=== PATIENT | male | born 1950 | race Caucasian/White ===

== ENCOUNTER 2017-01-19 09:09 | Observation (INO) ==
--- NOTE | 2017-01-19 09:35 | Emergency Department Note ---
Disposition Clinical Impression: Guaiac positive stools, Elevated troponin Dyspnea Qualifiers: Dyspnea type: dyspnea on exertion Qualified Code(s): R06.09 - Other forms of dyspnea Anemia Qualifiers: Anemia type: unspecified type Qualified Code(s): D64.9 - Anemia, unspecified CHF (congestive heart failure) Qualifiers: Congestive heart failure type: unspecified congestive heart failure type Congestive heart failure chronicity: unspecified congestive heart failure chronicity Qualified Code(s): I50.9 - Heart failure, unspecified Disposition: Admitted As Inpatient Condition: Good Referrals: Neeraj Donis MD [Primary Care Provider] - SOB HPI - General Chief Complaint: ED Shortness of Breath/Dyspnea Stated Complaint: JORJE Time Seen by Provider: 01/19/17 09:15 Source: patient Limitations: no limitations Nursing Notes Reviewed: Yes Vital Signs Reviewed: Yes - History of Present Illness Patient here for evaluation of difficulty in breathing. Past medical history of diabetes and hypertension. Patient states that he has had increasing symptoms over the last several weeks. Patient states that he is beginning having emotional symptoms and difficulty with exertion. Patient states he can hardly make it down the hallway for becoming acutely short of breath. Patient denies active chest pain. Patient does not have chest pain during these episodes. Patient does have a skin ulcer to the right anterior tibia. Patient has been getting outpatient antibiotics with minimal healing. Does not look acutely infected as there is minimal erythema and no purulent drainage. Patient states that he has been worked up for an iron of 8 and blood loss anemia. Last colonoscopy was in 2002. Patient is scheduled to see Dr. Lowery at the end of the month for colonoscopy. Neighbors with the patient states the patient has become more and more emotional as well as unsteady with walking. Patient's last cardiac workup includes a stress test in 2003. Patient had stents placed in 2002. No other cardiac workup since this time. Patient is on daily iron supplements. Guaiac study sent. Not grossly positive for bright red blood or melena. - Related Data Home Medications Medication Instructions Recorded Confirmed Aspirin 81 mg PO DAILY 01/19/17 01/19/17 Carvedilol 12.5 mg PO BID 01/19/17 01/19/17 Duloxetine HCl [Cymbalta] 60 mg PO DAILY 01/19/17 01/19/17 Ferrous Sulfate [Iron] 325 mg PO BID 01/19/17 01/19/17 Fluticasone Propionate Nasal 1 spray NS DAILY 01/19/17 01/19/17 [Flonase] Furosemide [Lasix] 40 mg PO BID 01/19/17 01/19/17 Gabapentin [Neurontin] 300 mg PO BID 01/19/17 01/19/17 Glimepiride [Amaryl] 4 mg PO DAILY 01/19/17 01/19/17 Insulin ASPART [Novolog Flexpen] 20 unit SQ TID 01/19/17 01/19/17 Insulin Degludec [Tresiba 60 unit SQ DAILY 01/19/17 01/19/17 Flextouch U-200] Losartan Potassium [Cozaar] 100 mg PO DAILY 01/19/17 01/19/17 Metformin HCl [Glucophage] 1,000 mg PO BID 01/19/17 01/19/17 Nortriptyline HCl 50 mg PO HS 01/19/17 01/19/17 Ranitidine HCl [Zantac] 150 mg PO BID 01/19/17 01/19/17 Rosuvastatin Calcium [Crestor] 10 mg PO DAILY 01/19/17 01/19/17 Trazodone HCl 100 mg PO HS 01/19/17 01/19/17 Allergies Allergy/AdvReac Type Severity Reaction Status Date / Time No Known Allergies Allergy Verified 01/19/17 11:22 Review of Systems: CONSTITUTIONAL: No weight loss, fever, chills, weakness or fatigue. HEENT: Eyes: No visual changes. Ears, Nose, Throat: No hearing loss, difficulty talking or unable to swallow. SKIN: No rash or itching. CARDIOVASCULAR: No chest pain, chest pressure or chest discomfort. No palpitations or edema. RESPIRATORY: Dyspnea, no cough or sputum production. GASTROINTESTINAL: No anorexia, nausea, vomiting or diarrhea. No abdominal pain or blood. GENITOURINARY: No burning on urination or hematuria. NEUROLOGICAL: No headache, dizziness, syncope, paralysis, ataxia, numbness or tingling in the extremities. No change in bowel or bladder control. MUSCULOSKELETAL: No muscle pain, back pain, joint pain or stiffness. Past Medical History - Past Medical History Medical history: Reports: diabetes, hypertension - Social History Smoking Status: Never smoker Alcohol use: Reports: none Drug use: Reports: none Physical Exam General appearance: NAD, conversant Eyes: anicteric sclerae, moist conjunctivae; PERRL HENT: Atraumatic; oropharynx clear with moist mucous membranes and no mucosal ulcerations Neck: Normal inspection; Trachea midline; FROM, supple Lungs: CTA, with normal respiratory effort and no intercostal retractions CV: RRR, no MRGs Abdomen: Soft, non-tender; no rebound or gaurding Rectal exam with mild hemorrhoids, good rectal tone, no obvious mass or lesions. Stool guaiac not grossly bloody or melanotic. Sent to lab Extremities: Diabetic ulcer to the right tibia. +2 pitting edema to the knees. Skin: Normal temperature; no rash, ulcers or lesions Psych: Appropriate mood and affect Neuro: alert and oriented to person, place and time - General Limitations: no limitations General appearance: alert, in no apparent distress Course - Reevaluation(s) Reevaluation #1: Patient with exertional dyspnea and a hemoglobin of 8.8 in the setting of occult stool heme positive. Patient with Casie megaly and pulmonary vascular congestion in the setting of elevated BNP as well as elevated troponin. Aspirin and Lasix given. Insulin given. - Consultations Consultation #1: Discussed with Dr. Alberts. Patient accepted for admission. Vital Signs Temperature 97.6 F 01/19/17 09:10 Pulse Rate 118 01/19/17 09:10 Respiratory Rate 18 01/19/17 09:10 Blood Pressure 174/79 01/19/17 09:10 O2 Sat by Pulse Oximetry 99 01/19/17 09:10 Temperature 97.6 F 01/19/17 09:10 Pulse Rate 101 01/19/17 11:24 Respiratory Rate 18 01/19/17 11:24 Blood Pressure 159/85 01/19/17 11:24 O2 Sat by Pulse Oximetry 96 01/19/17 11:24 Oxygen Delivery Oxygen Delivery Room Air Shortness of Breath/Dyspnea - Lab Data Result diagrams: 01/19/17 09:53 01/19/17 09:53 Lab Results 01/19/17 01/19/17 01/19/17 Range/Units 09:33 09:53 09:53 WBC 9.5 (4.3-11.1) K/mcL RBC 4.35 (4.19-5.50) M/mcL Hgb 8.8 L (12.9-16.9) g/dL Hct 31.3 L (37.5-50.1) % MCV 72.0 L (83.0-100.0) fL MCH 20.2 L (28.0-33.3) pg MCHC 28.1 L (31.6-35.5) g/dL RDW 20.8 H (11.5-14.5) % Plt Count 294 (140-400) K/mcL MPV 9.7 (9.4-12.4) fL Immature Gran % 0.3 (0-4) % Seg Neutrophils % 80.0 % Lymphocytes % 9.4 % Monocytes % 7.9 % Eosinophils % 2.0 % Basophils % 0.4 % Neutrophils # 7.6 (1.6-8.9) K/mcL Lymphocytes # 0.9 (0.6-4.6) K/mcL Monocytes # 0.8 (0.0-1.3) K/mcL Eosinophils # 0.2 (0.0-0.6) K/mcL Basophils # 0.0 (0.0-0.2) K/mcL Platelet Estimate Normal (Normal) Immature Plt Fraction 3.7 (1.1-6.1) % Polychromasia 2+ A (Not Present) Hypochromasia Present A (Not Present) Anisocytosis 1+ A (Not Present) Microcytosis Present A (Not Present) Sodium 136 (136-145) mEq/L Potassium 3.8 (3.5-4.5) mEq/L Chloride 97 L (98-109) mEq/L Carbon Dioxide 26 (19-29) mEq/L BUN 13 (8-26) mg/dL Creatinine 1.10 (0.72-1.25) mg/dL Est GFR ( Amer) > 60 (> 60) Est GFR (Non-Af Amer) > 60 (> 60) BUN/Creatinine Ratio 12 (6-26) Glucose 380 H (70-99) mg/dL Calculated Osmolality 298 (280-300) Calcium 9.6 (8.6-10.8) mg/dL Troponin I (0-0.03) ng/mL B-Natriuretic Peptide (0-100) pg/mL Urine Color (Yellow) Urine Clarity (Clear) Urine pH (5.0-8.0) pH Units Ur Specific [place] (1.010-1.025) Urine Protein (Neg-Trace) mg/dL Urine Glucose (UA) (Normal) mg/dL Urine Ketones (Negative) mg/dL Urine Blood (Negative) Urine Nitrite (Negative) Urine Bilirubin (Negative) Urine Urobilinogen (Normal) mg/dL Ur Leukocyte Esterase (Negative) Ur Culture Indicated? (NO) Stool Occult Blood Positive A (Negative) Blood Type Antibody Screen 01/19/17 01/19/17 01/19/17 Range/Units 09:53 09:53 09:53 WBC (4.3-11.1) K/mcL RBC (4.19-5.50) M/mcL Hgb (12.9-16.9) g/dL Hct (37.5-50.1) % MCV (83.0-100.0) fL MCH (28.0-33.3) pg MCHC (31.6-35.5) g/dL RDW (11.5-14.5) % Plt Count (140-400) K/mcL MPV (9.4-12.4) fL Immature Gran % (0-4) % Seg Neutrophils % % Lymphocytes % % Monocytes % % Eosinophils % % Basophils % % Neutrophils # (1.6-8.9) K/mcL Lymphocytes # (0.6-4.6) K/mcL Monocytes # (0.0-1.3) K/mcL Eosinophils # (0.0-0.6) K/mcL Basophils # (0.0-0.2) K/mcL Platelet Estimate (Normal) Immature Plt Fraction (1.1-6.1) % Polychromasia (Not Present) Hypochromasia (Not Present) Anisocytosis (Not Present) Microcytosis (Not Present) Sodium (136-145) mEq/L Potassium (3.5-4.5) mEq/L Chloride (98-109) mEq/L Carbon Dioxide (19-29) mEq/L BUN (8-26) mg/dL Creatinine (0.72-1.25) mg/dL Est GFR ( Amer) (> 60) Est GFR (Non-Af Amer) (> 60) BUN/Creatinine Ratio (6-26) Glucose (70-99) mg/dL Calculated Osmolality (280-300) Calcium (8.6-10.8) mg/dL Troponin I 0.04 H* (0-0.03) ng/mL B-Natriuretic Peptide 456 H (0-100) pg/mL Urine Color (Yellow) Urine Clarity (Clear) Urine pH (5.0-8.0) pH Units Ur Specific [place] (1.010-1.025) Urine Protein (Neg-Trace) mg/dL Urine Glucose (UA) (Normal) mg/dL Urine Ketones (Negative) mg/dL Urine Blood (Negative) Urine Nitrite (Negative) Urine Bilirubin (Negative) Urine Urobilinogen (Normal) mg/dL Ur Leukocyte Esterase (Negative) Ur Culture Indicated? (NO) Stool Occult Blood (Negative) Blood Type A POSITIVE Antibody Screen NEGATIVE 01/19/17 Range/Units 10:47 WBC (4.3-11.1) K/mcL RBC (4.19-5.50) M/mcL Hgb (12.9-16.9) g/dL Hct (37.5-50.1) % MCV (83.0-100.0) fL MCH (28.0-33.3) pg MCHC (31.6-35.5) g/dL RDW (11.5-14.5) % Plt Count (140-400) K/mcL MPV (9.4-12.4) fL Immature Gran % (0-4) % Seg Neutrophils % % Lymphocytes % % Monocytes % % Eosinophils % % Basophils % % Neutrophils # (1.6-8.9) K/mcL Lymphocytes # (0.6-4.6) K/mcL Monocytes # (0.0-1.3) K/mcL Eosinophils # (0.0-0.6) K/mcL Basophils # (0.0-0.2) K/mcL Platelet Estimate (Normal) Immature Plt Fraction (1.1-6.1) % Polychromasia (Not Present) Hypochromasia (Not Present) Anisocytosis (Not Present) Microcytosis (Not Present) Sodium (136-145) mEq/L Potassium (3.5-4.5) mEq/L Chloride (98-109) mEq/L Carbon Dioxide (19-29) mEq/L BUN (8-26) mg/dL Creatinine (0.72-1.25) mg/dL Est GFR ( Amer) (> 60) Est GFR (Non-Af Amer) (> 60) BUN/Creatinine Ratio (6-26) Glucose (70-99) mg/dL Calculated Osmolality (280-300) Calcium (8.6-10.8) mg/dL Troponin I (0-0.03) ng/mL B-Natriuretic Peptide (0-100) pg/mL Urine Color Yellow (Yellow) Urine Clarity Clear (Clear) Urine pH 6.5 (5.0-8.0) pH Units Ur Specific [place] 1.014 (1.010-1.025) Urine Protein Negative (Neg-Trace) mg/dL Urine Glucose (UA) >=1000 H (Normal) mg/dL Urine Ketones Negative (Negative) mg/dL Urine Blood Negative (Negative) Urine Nitrite Negative (Negative) Urine Bilirubin Negative (Negative) Urine Urobilinogen Normal (Normal) mg/dL Ur Leukocyte Esterase Negative (Negative) Ur Culture Indicated? NO (NO) Stool Occult Blood (Negative) Blood Type Antibody Screen
--- NOTE | 2017-01-19 09:48 | Emergency Department Note ---
START Narrative - START START: I examined this patient and my medical decision-making was reviewed with the CORRECTION WORKER/PA/Advanced Practice Nurse/Resident Physician. I agree with the documented findings, disposition and treatment plan as described except to the extent set forth below. will work up for SHOEMAKER, anemia, GI bleed possible transfusion if needed.
[2017-01-19 10:00] LABS: Basophils % 0.4 %; Eosinophils # 0.2 K/mcL (0.0-0.6); Hematocrit 31.3 % (37.5-50.1); Hemoglobin 8.8 g/dL (12.9-16.9); Immature Granulocytes % 0.3 % (0-4); Immature Platelets 3.7 % (1.1-6.1); Lymphocytes # 0.9 K/mcL (0.6-4.6); Lymphocytes % 9.4 %; Mean Corpuscular HGB Conc 28.1 g/dL (31.6-35.5); Mean Corpuscular Hemoglobin 20.2 pg (28.0-33.3); Mean Platelet Volume 9.7 fL (9.4-12.4); Monocytes # 0.8 K/mcL (0.0-1.3); Monocytes % 7.9 %; Neutrophils # 7.6 K/mcL (1.6-8.9); Platelet Count 294 K/mcL (140-400); Red Blood Count 4.35 M/mcL (4.19-5.50); Red Cell Distribution Width 20.8 % (11.5-14.5)
[2017-01-19 10:11] LABS: BUN/Creatinine Ratio 12 (6-26); Blood Urea Nitrogen 13 mg/dL (8-26); Calcium 9.6 mg/dL (8.6-10.8); Carbon Dioxide 26 mEq/L (19-29); Chloride 97 mEq/L (98-109); Glucose 380 mg/dL (70-99); Osmolality,Calculated 298 (280-300); Potassium 3.8 mEq/L (3.5-4.5); Sodium 136 mEq/L (136-145); eGFR For African Americans > 60 (> 60); eGFR For Non-African Americans > 60 (> 60)
[2017-01-19 10:23] LABS: Hypochromasia Present (Not Present)
[2017-01-19 10:24] LABS: Anisocytosis 1+ (Not Present); Microcytosis Present (Not Present); Platelet Estimate Normal (Normal); Polychromasia 2+ (Not Present)
[2017-01-19] MEDS ORDERED: Aspirin 81 MG TAB.CHEW PO ONE (10:37)
[2017-01-19] MEDS ORDERED: Furosemide 40 MG/4 ML VIAL IVP ONE (10:41)
[2017-01-19] MEDS ORDERED: Insulin LISPRO 300 UNITS/3 ML VIAL SQ STA (10:46)
[2017-01-19 10:53] LABS: Bilirubin,Urine Negative (Negative); Blood,Urine Negative (Negative); Clarity,Urine Clear (Clear); Color,Urine Yellow (Yellow); Glucose,Urine (UA) >=1000 mg/dL (Normal); Ketones,Urine Negative (Negative); Leukocyte Esterase,Urine Negative (Negative); Nitrite,Urine Negative (Negative); PH,Urine 6.5 pH Units (5.0-8.0); Protein,Urine Negative (Neg-Trace); Specific Gravity,Urine 1.014 (1.010-1.025); Urobilinogen,Urine Normal (Normal)
[2017-01-19] MEDS ORDERED: Pantoprazole 40 MG VIAL IVP ONE (13:17)
[2017-01-19] MEDS ORDERED: *HR* Dextrose 50 % in Water (Syg) 50 ML SYRINGE IVP PRN (13:28)
[2017-01-19] MEDS ORDERED: D5% in Water 1,000 ML IVC PRN (13:28)
[2017-01-19] MEDS ORDERED: Dextrose Gel 15 GM PO PRN ×2 (13:28)
[2017-01-19] MEDS ORDERED: Naloxone 0.4 MG/ML INJ IVP PRN (13:28)
[2017-01-19] MEDS ORDERED: Ondansetron 4 MG/2 ML VIAL IVP PRN (13:28)
--- NOTE | 2017-01-19 13:32 | Event Note ---
Date of Encounter: 01/19/17 Time of Encounter: 13:18 Patient and examined with back office medical assistant. Patients with history of diabetes mellitus, hypertension, coronary artery disease status post PCI on aspirin, chronic nonhealing right leg ulcer presents to the emergency room today with weakness and shortness of breath which has been going on for the past 3 months. Patient noted 3 months ago that he is anemic hemoglobin on the age range. Microcytic hypochromic which is more than likely due to G.I. bleeding. He notes black stools but he has also been iron therapy started a month ago. Denies any fresh bleeding rectum. Denies any hematemesis. Denies nausea. He mentioned that for the past 5 months he has been on leave 5 times a day for pain control. He stopped this 3 weeks ago. He is on baby aspirin. Not on any other antiplatelet or anticoagulant medications. Suspect G.I. bleeding. Will start platonic drip. We will check H&H every 6 hours in transfuse as needed. Hemoglobin currently is in the 8 range. He will need EGD +/- colonoscopy. Will discuss with gastroenterologists. Patient is short of breath, component of congestive heart failure exacerbated by anemia. Will give Lasix 40 mg IV daily. He has a chronic nonhealing right leg wound does not appear infected. Will hold off antibiotics get wound care to see the patient. Troponin elevation is likely non-STEMI type II due to demand ischemia. Patients full code
--- NOTE | 2017-01-19 13:42 | Internal Med History&Physical ---
Date of Encounter: 01/19/17 Time of Encounter: 11:30 Assessment and Plan (1) CHF (congestive heart failure) Current visit: Yes Status: Acute Patient reporting exertional dyspnea and has been progressively worsening over the past last 2 months. To the point where he cannot walk down the hallway without becoming short of breath. He does not report any chest pain, diaphoresis, numbness and tingling, nausea/vomiting. He was found to have cardiomegaly and pulmonary vascular congestion on chest x-ray. Patient denies any recent cardiac workup, but has known history of coronary artery disease with prior MT in 2002. We will start patient on 40 mg IV Lasix twice a day (his home dose Lasix is 40 mg by mouth twice a day) We will obtain a limited echocardiogram We will continue to trend troponins Qualifiers: Congestive heart failure type: unspecified congestive heart failure type Congestive heart failure chronicity: unspecified congestive heart failure chronicity Qualified Code(s): I50.9 - Heart failure, unspecified (2) Anemia Current visit: Yes Status: Acute Patient states that he was found to have low "iron" of around 8 and FOB+ about 5 months ago. He has been looking into getting a colonoscopy, but has not had the chance yet. At presentation he was found to have a hemoglobin of 8.8 and was FOB+. Microcytic anemia with increased RDW with FOB+ would suggest GI bleeding. He also describes having black colored stools, but has been taking iron supplementation for the past few months. He denies any stomach pain, nausea , vomiting, but does report that he had been taking Aleve for about 5 months, but had stopped about 3 weeks ago. Will trend his Hemoglobin to further evaluate Will consult GI for concern for need of EGD and possible colonoscopy, appreciate their assistance Avoid NSAIDs will transfuse as necessary, but would like to avoid giving him additional fluid patient will be receiving lasix for his CHF and will watch for any hemoconcentration will obtain iron studies Will start patient on protonix drip Qualifiers: Anemia type: unspecified type Qualified Code(s): D64.9 - Anemia, unspecified (3) Wound of lower extremity Current visit: Yes Status: Acute Patient appears to have stage 2 and right pretibial area approximately 3 cm in diameter. Surrounding area is slightly erythematous, but this is likely chronic changes and is not likely infected currently. We will consult wound care for further assistance in proper care Qualifiers: Encounter type: initial encounter Laterality: left Qualified Code(s): S81.802A - Unspecified open wound, left lower leg, initial encounter (4) Diabetes mellitus Current visit: Yes Status: Acute Patient has long-standing diabetes mellitus he is on several oral medications as well as home insulin. Presenting with a blood sugar of 294. Also hold patient's oral hypoglycemic medications Start low-dose insulin sliding scale Qualifiers: Diabetes mellitus type: type 2 Diabetes mellitus complication status: with ophthalmic complications Diabetes mellitus complication detail: with diabetic retinopathy Diabetic retinopathy severity: with unspecified retinopathy severity Diabetes mellitus macular edema: macular edema presence unspecified Diabetes mellitus intermission coordinator insulin use: with intermission coordinator use Laterality: unspecified laterality Qualified Code(s): E11.319 - Type 2 diabetes mellitus with unspecified diabetic retinopathy without macular edema; Z79.4 - intermission coordinator ( current) use of insulin (5) Hypertension Current visit: Yes Status: Acute Patient has known history of hypertension on several blood pressure medications. Blood pressure at presentation was elevated, but it is unclear if patient was able to take all of his medications at home. Continue patient home anti-hypertensive medications Carvedilol Losartan Qualifiers: Hypertension type: essential hypertension Qualified Code(s): I10 - Essential (primary) hypertension (6) Elevated troponin Current visit: Yes Status: Acute Troponin mildly elevated at 0.04 and likely represents demand ischemia in presence of CHF, hypertension, and anemia. Patient does have prior history of coronary artery disease with myocardial infarction in 2002 (stent placed at that time). EKG was negative for acute findings. We will continue to trend troponins (7) Depression Current visit: Yes Status: Acute Continue patient home medications Cymbalta Nortriptyline Qualifiers: Depression Type: unspecified Qualified Code(s): F32.9 - Major depressive disorder, single episode, unspecified (8) DVT prophylaxis Current visit: Yes Status: Acute EPCDs Internal Medicine - H&P: HPI Chief complaint: Exertional shortness of breath Admitted From: Home Plans for Post Hospital Care: Home History of present illness: Mr. Simmons is a 66 year old male with prior medical history of hypertension, diabetes, coronary artery disease (with myocardial infarction in 2002 with stent placed at that time), and anemia who presents to [place] after continued, worsening, progressive shortness of breath. He states his shortness of breath has been progressively worsening over the last several months, but recently has gotten to the point where he cannot walk in the [place] without becoming short of breath. He states this has not occurred before. he sees this is not like his prior myocardial infarction, and denies any chest pain, diaphoresis, nausea or vomiting. he reports having a continued dry, nonproductive cough with no prior medical history of lung pathology. He also reports that he was found to be anemic 5 months ago at the [facility] with a "iron" of 8. At this time he was also found to be fecal occult blood positive and was started on iron supplementation. He states that for the past 3 months he is looking into getting a colonoscopy, but had not had the chance to do so yet. He denies hematochezia, epistaxis, or hematuria, but he does report having stool that is black and brown. Though he has been on iron supplementation for the past several months. He denies any history of peptic ulcer disease, but reports that he had been taking Aleve for 5 months before stopping about 3 weeks ago. Past Med Surg Social Fam HX - Past Medical History Medical history: coronary artery disease, diabetes, hyperlipidemia, hypertension Psychiatric history: depression - Past Surgical History Surgical History: angioplasty/stent (2002), other (colonoscopy 2002) - Social History Smoking Status: Never smoker Alcohol use: none Drug use: none Internal Medicine - H&P: Meds Aspirin 81 mg PO DAILY 01/19/17 [History] Carvedilol 12.5 mg PO BID 01/19/17 [History] Duloxetine HCl [Cymbalta] 60 mg PO DAILY 01/19/17 [History] Ferrous Sulfate [Iron] 325 mg PO BID 01/19/17 [History] Fluticasone Propionate Nasal [Flonase] 1 spray NS DAILY 01/19/17 [History] Furosemide [Lasix] 40 mg PO BID 01/19/17 [History] Gabapentin [Neurontin] 300 mg PO BID 01/19/17 [History] Glimepiride [Amaryl] 4 mg PO DAILY 01/19/17 [History] Insulin ASPART [Novolog Flexpen] 20 unit SQ TID 01/19/17 [History] Insulin Degludec [Tresiba Flextouch U-200] 60 unit SQ DAILY 01/19/17 [History] Losartan Potassium [Cozaar] 100 mg PO DAILY 01/19/17 [History] Metformin HCl [Glucophage] 1,000 mg PO BID 01/19/17 [History] Nortriptyline HCl 50 mg PO HS 01/19/17 [History] Ranitidine HCl [Zantac] 150 mg PO BID 01/19/17 [History] Rosuvastatin Calcium [Crestor] 10 mg PO DAILY 01/19/17 [History] Trazodone HCl 100 mg PO HS 01/19/17 [History] Allergies No Known Allergies Allergy (Verified 01/19/17 11:22) - Constitutional Constitutional: fatigue, weakness, no chills, no fever(s), no falls - EENT Eyes: no change in vision, no loss of vision - Cardiovascular Cardiovascular ROS IM: dyspnea on exertion, edema, no chest pain, no diaphoresis , no dyspnea, no lightheadedness - Respiratory Respiratory: cough (dry), dyspnea on exertion, no dyspnea, no hemoptysis, no wheezing, no pain on inspiration - Gastrointestinal Gastrointestinal: melena, no abdominal pain, no constipation, no diarrhea, no hematochezia, no vomiting - Genitourinary Genitourinary ROS male: no dysuria, no hematuria - Musculoskeletal Musculoskeletal ROS IM: no muscle weakness, no numbness, no tingling - Integumentary Integumentary IM: skin ulcer (LLE), no pruritus - Neurological Neurological ROS: weakness, no confusion, no dizziness, no headache(s), no numbness, no tingling - Psychiatric Psychiatric: depression - Constitutional Vitals: Temp Pulse Resp BP Pulse Ox 97.6 F 102 18 126/68 96 01/19/17 09:10 01/19/17 13:16 01/19/17 13:16 01/19/17 13:16 01/19/17 11:24 Exam: General: Cooperative, pleasant, no acute distress, alert and oriented 3, answers questions appropriately, obese HEENT: Normocephalic, atraumatic, neck supple, trachea midline, Conjunctiva pink , sclera anicteric, PERRL, oral mucosa moist, no orophargeal erythema or exudates Respiratory: No accessory muscle usage, faint bibasilar rates on auscultation Cardiovascular: Regular rate and rhythm, S1 and S2 present, no murmurs/rubs/ gallops/clicks appreciated GI/abdominal: Nondistended, nontender, soft, normal bowel sounds, no peritoneal signs, protuberant Extremities: No calf tenderness, noncyanotic, 1+ bilateral pitting pretibial edema, lower extremity pulses palpable and symmetrical, moderate size stage II ulcer located on left pretibial area, surrounded by pink tissue, several other small scratches identified bilateral lower extremities Neurological: Alert and oriented 3, no facial droop, no focal deficits Skin: Dry, intact, normal color Internal Med - H&P Results - Labs CBC & Chem 7: 01/19/17 09:53 01/19/17 09:53 Labs: Short CBC 01/19/17 Range/Units 09:53 WBC 9.5 (4.3-11.1) K/mcL Hgb 8.8 L (12.9-16.9) g/dL Hct 31.3 L (37.5-50.1) % Plt Count 294 (140-400) K/mcL Neutrophils # 7.6 (1.6-8.9) K/mcL BMP 01/19/17 09:53 Sodium 136 Potassium 3.8 Chloride 97 L Carbon Dioxide 26 BUN 13 Creatinine 1.10 Glucose 380 H Calcium 9.6 Cardiac Enzymes 01/19/17 Range/Units 09:53 Troponin I 0.04 H* (0-0.03) ng/mL Urine 01/19/17 Range/Units 10:47 Urine Color Yellow (Yellow) Urine Clarity Clear (Clear) Urine pH 6.5 (5.0-8.0) pH Units Ur Specific [place] 1.014 (1.010-1.025) Urine Protein Negative (Neg-Trace) mg/dL Urine Glucose (UA) >=1000 H (Normal) mg/dL - Impressions ITS Impressions Chest X-Ray 01/19/17 09:36 IMPRESSION: Cardiomegaly with pulmonary vascular congestion. D/ / Sylwia Miranda MD / Sylwia Miranda MD Interpreting Provider: Sylwia Miranda MD
[2017-01-19 14:13] LABS: % Iron Saturation 3 % (20-55); Iron 19 mcg/dL (65-175); Transferrin 389 mg/dL (174-364)
[2017-01-19] MEDS: Pantoprazole 40 MG in 0.9 % Sodium Chloride Mini Bag 100 ML IVC SCH ×2 (15:44→22:27)
[2017-01-19] MEDS ORDERED: Pantoprazole 80 MG in 0.9 % Sodium Chloride 50 ML IVPB ONE (15:49)
[2017-01-19] MEDS ORDERED: Furosemide 40 MG/4 ML VIAL IVP SCH (17:00)
[2017-01-19] MEDS ORDERED: Perflutren Lipid Microsphere 1.3 ML in 0.9 % Sodium Chloride 8.7 ML IVP ONE (17:53)
[2017-01-19] MEDS: Insulin LISPRO 300 UNITS/3 ML VIAL SQ SCH ×2 (18:18→22:28)
[2017-01-19 20:20] LABS: Hemoglobin 8.6 g/dL (12.9-16.9)
[2017-01-19] MEDS: Gabapentin 300 MG CAPSULE PO SCH (22:29)
[2017-01-19] MEDS: traZODone 50 MG TABLET PO SCH (22:29)
[2017-01-20] MEDS: Insulin LISPRO 300 UNITS/3 ML VIAL SQ SCH ×6 (01:01→22:36)
[2017-01-20 03:50] LABS: Basophils % 0.6 %; Eosinophils % 2.6 %; Mean Corpuscular HGB Conc 28.5 g/dL (31.6-35.5)
[2017-01-20 03:53] LABS: Basophils # 0.1 K/mcL (0.0-0.2); Eosinophils # 0.3 K/mcL (0.0-0.6); Hematocrit 29.1 % (37.5-50.1); Hemoglobin 8.3 g/dL (12.9-16.9); Immature Granulocytes % 0.4 % (0-4); Immature Platelets 6.2 % (1.1-6.1); Lymphocytes # 1.1 K/mcL (0.6-4.6); Lymphocytes % 11.4 %; Mean Corpuscular Hemoglobin 20.3 pg (28.0-33.3); Mean Corpuscular Volume 71.3 fL (83.0-100.0); Mean Platelet Volume 10.7 fL (9.4-12.4); Monocytes # 0.9 K/mcL (0.0-1.3); Monocytes % 9.2 %; Neutrophils # 7.5 K/mcL (1.6-8.9); Platelet Count 268 K/mcL (140-400); Red Blood Count 4.08 M/mcL (4.19-5.50); Red Cell Distribution Width 20.9 % (11.5-14.5); Segmented Neutrophils % 75.8 %
[2017-01-20 03:58] LABS: INR 1.4; Prothrombin Time 15.2 Seconds (9.4-12.1)
[2017-01-20 04:01] LABS: Activated Partial Thrombo Time 31.2 Seconds (26.0-36.0); BUN/Creatinine Ratio 13 (6-26); Blood Urea Nitrogen 16 mg/dL (8-26); Calcium 9.3 mg/dL (8.6-10.8); Carbon Dioxide 29 mEq/L (19-29); Chloride 98 mEq/L (98-109); Glucose 182 mg/dL (70-99); Magnesium 1.4 mg/dL (1.6-2.6); Osmolality,Calculated 290 (280-300); Phosphorous 2.8 mg/dL (2.3-4.7); Potassium 3.3 mEq/L (3.5-4.5); Sodium 137 mEq/L (136-145); eGFR For African Americans > 60 (> 60); eGFR For Non-African Americans 57 (> 60)
[2017-01-20 05:00] LABS: Anisocytosis 2+ (Not Present); Hypochromasia Present (Not Present); Microcytosis Present (Not Present)
[2017-01-20 05:01] LABS: Macrocytosis Present (Not Present); Platelet Estimate Normal (Normal); Polychromasia 2+ (Not Present)
[2017-01-20 05:02] LABS: Large Platelets Present (Not Present)
[2017-01-20] MEDS: Pantoprazole 40 MG in 0.9 % Sodium Chloride Mini Bag 100 ML IVC SCH ×3 (05:36→10:32)
[2017-01-20] MEDS: Aspirin Enteric Coated 81 MG Tablet PO SCH (08:56)
[2017-01-20] MEDS: Gabapentin 300 MG CAPSULE PO SCH ×2 (08:57→22:35)
[2017-01-20] MEDS ORDERED: Aspirin 81 MG TAB.CHEW PO SCH (09:00)
[2017-01-20] MEDS ORDERED: Furosemide 40 MG/4 ML VIAL IVP SCH (09:00)
--- NOTE | 2017-01-20 11:59 | Gastroenterology Consult Note ---
<Afshin Layton Arianna - Last Filed: 01/20/17 11:57> Date of Encounter: 01/20/17 Time of Encounter: 10:30 - Assessment and plan (1) Anemia Current Visit: Yes Status: Acute Assessment and plan: Hgb 8.8 on admission, today 8.3 with MCV 71.3 and iron of 19. Plan for EGD and colonoscopy tomorrow. Clear liquid diet today, no red or purple. NPO at midnight. If unable tolerate NuLytely please use MiraLAX prep. If not clear by 6 AM, give 2 tap water enemas. Qualifiers: Anemia type: iron deficiency Iron deficiency anemia type: chronic blood loss Qualified Code(s): D50.0 - Iron deficiency anemia secondary to blood loss (chronic) (2) Guaiac positive stools Current Visit: Yes Status: Acute (3) CHF (congestive heart failure) Current Visit: Yes Status: Acute Assessment and plan: Management per primary team. Qualifiers: Congestive heart failure type: unspecified congestive heart failure type Congestive heart failure chronicity: unspecified congestive heart failure chronicity Qualified Code(s): I50.9 - Heart failure, unspecified - Time Spent With Patient Total time spent is greater than 50% in coordination of care (as documented) at patient's floor/unit and/or counseling patient: GI History of Present Illness - Data of Consult Patient: new to practice Consult date: 01/20/17 Requesting Physician: Mattie Qureshi MD - Consult Narrative Reason for consult: Concern for GI bleed History of present illness: Mr. Simmons is a 66 year old male with PMHx of CAD, NE, DM, HLD, HTN, and anemia who presented to the ED with worsening shortness of breath over the past several months. His SOB is worsened with exertion. He states he was found to be anemic 5 months ago at the [facility] with a "iron" of 8. At that time he was also found to be fecal occult blood positive and was started on iron supplementation. He states that for the past 3 months he is looking into getting a colonoscopy, but had not had the chance to do so yet. He denies fever , chills, chest pain, abdominal pain, hematochezia. He states his stools have been black, but denies tarry stools. He has been on iron supplementation as well. He states he has been taking Aleve for 5 months before stopping 3 weeks ago. Procedures: None NSAIDs: ASA, Aleve Anticoagulation: None Past Med Surg Social Fam HX - Past Medical History Medical history: coronary artery disease, diabetes, hyperlipidemia, hypertension Psychiatric history: depression - Past Surgical History Surgical History: angioplasty/stent, other - Social History Smoking Status: Never smoker Alcohol use: none Drug use: none - Gastrointestinal Gastrointestinal: Present: as per HPI - Constitutional Constitutional: as per HPI - EENT Eyes: as per HPI Ears: Present: as per HPI Nose, mouth and throat: Present: as per HPI - Cardiovascular Cardiovascular ROS: Present: as per HPI - Respiratory Respiratory IM: Present: as per HPI - Genitourinary Genitourinary: Absent: change in color, Urinary frequency - Neurological ROS Neurological GI: Present: as per HPI - Hematologic/Lymphatic Hematologic/Lymphatic pediatric: Present: as per HPI - Musculoskeletal Musculoskeletal ROS GI: Present: as per HPI - Psychiatric ROS Psychiatric GI: Present: as per HPI - Endocrine Endocrine IM: Present: as per HPI - Constitutional Vitals: Temp Pulse Resp BP Pulse Ox 98.2 F 94 16 116/73 100 01/20/17 11:40 01/20/17 11:40 01/20/17 11:40 01/20/17 11:40 01/20/17 11:40 General appearance: Present: cooperative, A&O X 3, no acute distress, answers questions appropriately - Head Head exam: Present: atraumatic, normocephalic - Eye Eye exam: Present: normal appearance, sclera anicteric - ENT ENT exam: Present: mucous membranes moist - Neck Neck exam general surgery: Present: normal inspection, trachea midline - Respiratory Respiratory exam: Present: CTAB. Absent: decreased breath sounds, rales, rhonchi - Cardiovascular Cardiovascular exam: Present: RRR, +S1, +S2 - GI/Abdominal GI/Abdominal exam: Present: soft, no peritoneal signs. Absent: distended, firm , guarding, tenderness - Rectal Rectal exam: Present: deferred - Extremities Exam Extremities exam: Present: warm - Neurological Exam Neurological exam: Present: no focal deficits - Psychiatric Psychiatric exam: Present: normal affect, normal mood - Skin Skin exam: Present: dry, intact, normal color, warm Results - Labs CBC & Chem 7: 01/20/17 03:04 01/20/17 03:04 Labs: Last Result Calcium 9.3 mg/dL (8.6-10.8) 01/20/17 03:04 Iron 19 mcg/dL (65-175) L 01/19/17 13:52 % Saturation 3 % (20-55) L 01/19/17 13:52 Transferrin 389 mg/dL (174-364) H 01/19/17 13:52 Troponin I 0.05 ng/mL (0-0.03) H* 01/19/17 19:49 Stool Occult Blood Positive (Negative) A 01/19/17 09:33 Entire Visit Hgb 8.3 g/dL (12.9-16.9) L 01/20/17 03:04 Hct 29.1 % (37.5-50.1) L 01/20/17 03:04 PT 15.2 Seconds (9.4-12.1) H 01/20/17 03:04 - ABG ABG results: PT/INR, D-dimer PT 15.2 Seconds (9.4-12.1) H 01/20/17 03:04 Consult Discharge Plan - Plan Referrals: Neeraj Donis MD [Primary Care Provider] - <Diane Chandler - Last Filed: 01/20/17 12:43> Date of Encounter: 01/20/17 Time of Encounter: 12:20 - Time Spent With Patient Total time spent is greater than 50% in coordination of care (as documented) at patient's floor/unit and/or counseling patient: GI History of Present Illness - Data of Consult Requesting Physician: Mattie Qureshi MD - Consult Narrative History of present illness: Mr. Simmons is a 66 year old male - Constitutional Vitals: Temp Pulse Resp BP Pulse Ox 98.2 F 94 16 116/73 100 01/20/17 11:40 01/20/17 11:40 01/20/17 11:40 01/20/17 11:40 01/20/17 11:40 Results - Labs CBC & Chem 7: 01/20/17 03:04 01/20/17 03:04 Labs: Last Result Calcium 9.3 mg/dL (8.6-10.8) 01/20/17 03:04 Iron 19 mcg/dL (65-175) L 01/19/17 13:52 % Saturation 3 % (20-55) L 01/19/17 13:52 Transferrin 389 mg/dL (174-364) H 01/19/17 13:52 Troponin I 0.05 ng/mL (0-0.03) H* 01/19/17 19:49 Stool Occult Blood Positive (Negative) A 01/19/17 09:33 Entire Visit Hgb 8.3 g/dL (12.9-16.9) L 01/20/17 03:04 Hct 29.1 % (37.5-50.1) L 01/20/17 03:04 PT 15.2 Seconds (9.4-12.1) H 01/20/17 03:04 - ABG ABG results: PT/INR, D-dimer PT 15.2 Seconds (9.4-12.1) H 01/20/17 03:04 - Attending Attestation I examined this patient and my medical decision-making was reviewed with the UNIT AID/PA/Advanced Practice Nurse/Resident Physician. I agree with the documented findings, disposition and treatment plan as described except to the extent set forth below.
[2017-01-20] MEDS: Insulin DETEMIR 100 UNIT/ML X5UNITS SQ SCH (13:34)
[2017-01-20] MEDS: Fluticasone Propionate Nasal 50 MCG/SPRAY BOTTLE NS SCH (13:35)
--- NOTE | 2017-01-20 15:16 | Internal Med Progress Note ---
Date of Encounter: 01/20/17 Time of Encounter: 15:14 - Assessment and plan (1) CHF (congestive heart failure) Current Visit: Yes Status: Acute Assessment and plan: On IV Lasix. Good response to treatment. 2-D echocardiogram shows ejection fraction of 30-35%. We will consult cardiology for further recommendations. Continue Lasix. High-risk for complications. Also on aspirin, carvedilol Qualifiers: Congestive heart failure type: systolic Congestive heart failure chronicity : unspecified congestive heart failure chronicity Qualified Code(s): I50.20 - Unspecified systolic (congestive) heart failure (2) Anemia Current Visit: Yes Status: Acute Assessment and plan: Hemoglobin 9.3 today. Patient has low iron levels. Has been Will continue. GI has been consulted for further evaluation as patient has had guaiac-positive stools. Qualifiers: Anemia type: iron deficiency Iron deficiency anemia type: chronic blood loss Qualified Code(s): D50.0 - Iron deficiency anemia secondary to blood loss (chronic) (3) Depression Current Visit: Yes Status: Chronic Assessment and plan: Continue nortriptyline Qualifiers: Depression Type: unspecified Qualified Code(s): F32.9 - Major depressive disorder, single episode, unspecified (4) Elevated troponin Current Visit: Yes Status: Acute Assessment and plan: Troponin stable. No chest pain. Likely from demand ischemia. Consult cardiology given low ejection fraction. (5) Guaiac positive stools Current Visit: Yes Status: Acute Assessment and plan: Gastroenterology has been consulted and plan for upper GI endoscopy and colonoscopy tomorrow (6) Wound of lower extremity Current Visit: Yes Status: Chronic Assessment and plan: Chronic right lower extremity pretibial wound. Wound care has been consulted. Qualifiers: Encounter type: initial encounter Laterality: left Qualified Code(s): S81.802A - Unspecified open wound, left lower leg, initial encounter (7) Diabetes mellitus Current Visit: Yes Status: Chronic Assessment and plan: blood sugars are elevated. We will add long-acting insulin. Qualifiers: Diabetes mellitus type: type 2 Diabetes mellitus complication status: with ophthalmic complications Diabetes mellitus complication detail: with diabetic retinopathy Diabetic retinopathy severity: with unspecified retinopathy severity Diabetes mellitus macular edema: macular edema presence unspecified Diabetes mellitus technician terminal and repeater insulin use: with skilled nursing use Laterality: unspecified laterality Qualified Code(s): E11.319 - Type 2 diabetes mellitus with unspecified diabetic retinopathy without macular edema; Z79.4 - group home ( current) use of insulin (8) Hypertension Current Visit: Yes Status: Chronic Assessment and plan: Well-controlled Qualifiers: Hypertension type: essential hypertension Qualified Code(s): I10 - Essential (primary) hypertension - Subjective Interval history: Patient is feeling better today. Shortness of breath is improving. Denies any fever chills or night sweats overnight. No chest pain reported. No nausea or vomiting. No palpitations. - Constitutional Vitals: Temp Pulse Resp BP Pulse Ox 98.2 F 94 16 116/73 100 01/20/17 11:40 01/20/17 11:40 01/20/17 11:40 01/20/17 11:40 01/20/17 11:40 General appearance: Present: cooperative, mild distress, A&O X 3, answers questions appropriately - Cardiovascular Cardiovascular exam: Present: RRR, +S1, +S2. Absent: diastolic murmur, gallop, rubs, systolic murmur - GI/Abdominal GI/Abdominal exam: Present: normal bowel sounds, soft, no peritoneal signs. Absent: distended, tenderness - Extremities Exam Extremities exam: Present: warm, radial pulses palpable and symetrical. Absent : calf tenderness, cyanotic, pedal edema - Neurological Exam Neurological exam: Present: alert, oriented X3, no focal deficits. Absent: facial droop, speech deficit - Skin Skin exam: Present: dry, intact Internal Medicine: Result - Labs CBC & Chem 7: 01/20/17 03:04 01/20/17 03:04 Labs: Short CBC 01/19/17 01/20/17 Range/Units 19:49 03:04 WBC 9.9 (4.3-11.1) K/mcL Hgb 8.6 L 8.3 L (12.9-16.9) g/dL Hct 30.0 L 29.1 L (37.5-50.1) % Plt Count 268 (140-400) K/mcL Neutrophils # 7.5 (1.6-8.9) K/mcL BMP 01/20/17 03:04 Sodium 137 Potassium 3.3 L Chloride 98 Carbon Dioxide 29 BUN 16 Creatinine 1.25 Glucose 182 H Calcium 9.3 Cardiac Enzymes 01/19/17 Range/Units 19:49 Troponin I 0.05 H* (0-0.03) ng/mL - ABG Interpretation ABG results: PT/INR, D-dimer PT 15.2 Seconds (9.4-12.1) H 01/20/17 03:04 Consult Discharge Plan - Plan Referrals: Neeraj Donis MD [Primary Care Provider] - 01/28/17 10:00 am (please follow up as schedule..) - Attending Attestation This document has been at least partially created by [employer] recognition technology by Dr. Qureshi. Errors in grammar, wording or other phrases may exist. If errors are found after the documentation is signed, they will be addressed individually in the addendum section of this document when appropriate.
[2017-01-20] MEDS: Furosemide 40 MG/4 ML VIAL IVP SCH (16:46)
[2017-01-20] MEDS: Pantoprazole 40 MG VIAL IVP SCH (16:46)
[2017-01-20] MEDS ORDERED: SODIUM CHLORIDE/NAHCO3/KCL/PEG 4,000 ML SOLN.RECON PO ONE (17:00)
[2017-01-20] MEDS: Silvasorb 44.4 ML TUBE TP SCH (19:34)
[2017-01-20] MEDS ORDERED: Insulin DETEMIR 100 UNIT/ML X5UNITS SQ SCH (21:00)
[2017-01-20] MEDS: traZODone 50 MG TABLET PO SCH (22:35)
[2017-01-21 04:38] LABS: Basophils # 0.1 K/mcL (0.0-0.2); Basophils % 0.7 %; Eosinophils # 0.3 K/mcL (0.0-0.6); Eosinophils % 3.1 %; Hematocrit 30.7 % (37.5-50.1); Immature Granulocytes % 0.2 % (0-4); Lymphocytes # 1.5 K/mcL (0.6-4.6); Lymphocytes % 17.8 %; Mean Corpuscular HGB Conc 29.3 g/dL (31.6-35.5); Mean Corpuscular Hemoglobin 20.7 pg (28.0-33.3); Mean Corpuscular Volume 70.7 fL (83.0-100.0); Mean Platelet Volume 10.6 fL (9.4-12.4); Monocytes % 12.1 %; Neutrophils # 5.5 K/mcL (1.6-8.9); Platelet Count 257 K/mcL (140-400); Red Blood Count 4.34 M/mcL (4.19-5.50); Red Cell Distribution Width 20.8 % (11.5-14.5); Segmented Neutrophils % 66.1 %
[2017-01-21 05:02] LABS: BUN/Creatinine Ratio 20 (6-26); Blood Urea Nitrogen 21 mg/dL (8-26); Calcium 8.8 mg/dL (8.6-10.8); Carbon Dioxide 25 mEq/L (19-29); Chloride 99 mEq/L (98-109); Glucose 134 mg/dL (70-99); Osmolality,Calculated 287 (280-300); Potassium 3.7 mEq/L (3.5-4.5); Sodium 136 mEq/L (136-145); eGFR For African Americans > 60 (> 60); eGFR For Non-African Americans > 60 (> 60)
[2017-01-21] MEDS: Pantoprazole 40 MG VIAL IVP SCH ×2 (05:45→16:46)
[2017-01-21] MEDS: Furosemide 40 MG/4 ML VIAL IVP SCH (08:14)
[2017-01-21] MEDS: Aspirin Enteric Coated 81 MG Tablet PO SCH (08:14)
[2017-01-21] MEDS: Gabapentin 300 MG CAPSULE PO SCH ×2 (08:14→21:35)
[2017-01-21] MEDS: Insulin LISPRO 300 UNITS/3 ML VIAL SQ SCH ×4 (08:16→21:36)
[2017-01-21] MEDS: Fluticasone Propionate Nasal 50 MCG/SPRAY BOTTLE NS SCH (09:53)
[2017-01-21] MEDS: Insulin DETEMIR 100 UNIT/ML X5UNITS SQ SCH (09:55)
--- NOTE | 2017-01-21 10:39 | Cardiology Consult Note ---
Date of Encounter: 01/21/17 Time of Encounter: 10:39 Assessment and Plan (1) Cardiomyopathy Current Visit: Yes Status: Acute EF 30-35%, globally reduced. Pt unsure of prior EF. Hx of CAD s/p ME and PCI in 2002 at [facility]. No cardiac testing since that time. Records requested. NICMP vs ICMP. Pt denies chest pain. Complicated by GI bleeding--HGB 8s, positive stool guaiac. Colonoscopy planned for today. Will follow-up on colonoscopy results and see if records are able to be obtained. Stress test vs. C in AM for further ischemic eval. Continue BB, ARB, IV Lasix. Continue to follow. Qualifiers: Cardiomyopathy type: unspecified Qualified Code(s): I42.9 - Cardiomyopathy , unspecified (2) CHF (congestive heart failure) Current Visit: Yes Status: Acute Echo EF 30-35%, global systolic dysfunction. Was a limited study. Will discuss with Dr. Huitron regarding reordering as a full echo. Hx of CAD with PCI in 2002. Unclear of previous EF. Records from [facility] requested. No cardiac testing since 2002. Reports worsening dyspnea, occasional LE edema over past 3 months. BNP 456. CXR with pulmonary vascular congestion. Pt being diuresed with Lasix IV 40mg BID. No output recorded, but pt reports symptoms have now resolved. Appears near euvolemic on exam. Recommend transition to PO maintenance Lasix prior to discharge. Recommend strict I/O, daily weights, Na and fluid restriction. Qualifiers: Congestive heart failure type: systolic Congestive heart failure chronicity : unspecified congestive heart failure chronicity Qualified Code(s): I50.20 - Unspecified systolic (congestive) heart failure (3) CAD (coronary artery disease) Current Visit: Yes Status: Chronic Hx of CAD s/p ME and PCI at [facility] in 2002. ASA, Statin, BB. Qualifiers: Coronary Disease-Associated Artery/Lesion type: [place] artery [place] vs. transplanted heart: [place] heart Associated angina: without angina Qualified Code(s): I25.10 - Atherosclerotic heart disease of [place] coronary artery without angina pectoris (4) Elevated troponin Current Visit: Yes Status: Acute Borderline and flat--0.04, 0.04, 0.05 in setting of GI bleed and CHF. Likely demand ischemia, nondiagnostic for ACS. Stress test vs. [facility] in am as above for EF of 30-35%, unclear if acute or chronic. ASA, Statin, BB. (5) Guaiac positive stools Current Visit: Yes Status: Acute Plan for colonoscopy today. GI following. Discussion w patient/family: The assessment and plan as outlined above was discussed with the patient and/or family members who expressed understanding and agreement. All questions were answered. Thank you for involving us in the care of your patient. Please call with any questions. I will discuss all the above with Dr. Huitron and make changes as necessary. History of Present Illness Consult date: 01/21/17 Requesting physician: Mattie Qureshi Consult reason: CMP, CHF Chief complaint: dyspnea History of present illness: Mr. Simmons is a 66 year old male with PMH of hypertension, diabetes, coronary artery disease (with myocardial infarction in 2002 with stent placed at that time), and anemia who presents to [facility] to have further anemia workup. He reports he was found to be anemic 5 months ago at [facility] when he was found to have HGB 8. He was planned to have outpt colonoscopy, but was not completed yet. Does report dark stools on iron supplements. Stool occult blood positive. He states after presentation and questioning he did realize his shortness of breath has been progressively worsening over the last several months, but recently has gotten to the point where he cannot walk in the [place] without becoming short of breath. He denies chest pain. Reports occasional LE edema. Echo shows EF 30-35%, global systolic dysfunction. It was a limited study. He is planned to have colonoscopy today. Cardiology consulted for further recommendations. He is unsure of previous EF. He reports since receiving IV Lasix he feels much better and his dyspnea and LE edema have subsided. Troponins 0.04, 0.04, 0.05. Past Med Surg Social Fam HX - Past Medical History Medical history: coronary artery disease, diabetes, hyperlipidemia, hypertension Psychiatric history: depression - Past Surgical History Surgical History: angioplasty/stent, other - Social History Smoking Status: Never smoker Alcohol use: none Drug use: none Medications and Allergies Aspirin 81 mg PO DAILY 01/19/17 [History] Carvedilol 12.5 mg PO BID 01/19/17 [History] Duloxetine HCl [Cymbalta] 60 mg PO DAILY 01/19/17 [History] Ferrous Sulfate [Iron] 325 mg PO BID 01/19/17 [History] Fluticasone Propionate Nasal [Flonase] 1 spray NS DAILY 01/19/17 [History] Furosemide [Lasix] 40 mg PO BID 01/19/17 [History] Gabapentin [Neurontin] 300 mg PO BID 01/19/17 [History] Glimepiride [Amaryl] 4 mg PO DAILY 01/19/17 [History] Insulin ASPART [Novolog Flexpen] 20 unit SQ TID 01/19/17 [History] Insulin Degludec [Tresiba Flextouch U-200] 60 unit SQ DAILY 01/19/17 [History] Losartan Potassium [Cozaar] 100 mg PO DAILY 01/19/17 [History] Metformin HCl [Glucophage] 1,000 mg PO BID 01/19/17 [History] Nortriptyline HCl 50 mg PO HS 01/19/17 [History] Ranitidine HCl [Zantac] 150 mg PO BID 01/19/17 [History] Rosuvastatin Calcium [Crestor] 10 mg PO DAILY 01/19/17 [History] Trazodone HCl 100 mg PO HS 01/19/17 [History] Allergies No Known Allergies Allergy (Verified 01/19/17 11:22) All Systems Review: A 10-system review of systems was performed and is negative for pertinent findings except as documented above in the HPI. - Cardiovascular Cardiovascular: as per HPI, dyspnea at rest, dyspnea on exertion, leg edema - Respiratory Respiratory: dyspnea - Gastrointestinal Gastrointestinal: melena Physical Examination Vital Signs, Last 4 Hours Temp Pulse Resp BP Pulse Ox 01/21/17 07:43 97.6 F 96 15 124/77 96 Vital Signs Temp Pulse Resp BP Pulse Ox 01/21/17 07:43 97.6 F 96 15 124/77 96 01/21/17 05:11 97.6 F 88 16 115/72 96 01/20/17 23:22 98 F 85 16 90/54 95 01/20/17 20:19 98.2 F 87 16 106/64 98 01/20/17 15:51 98.4 F 96 16 98/59 97 01/20/17 11:40 98.2 F 94 16 116/73 100 Intake and Output 01/20/17 01/21/17 01/21/17 23:59 07:59 15:59 Intake Total 360 / 360 Balance 360 / 360 Intake: Oral 360 / 360 Other: Weight 108.7 kg Blood Glucose* 217 143 Patient Weight 01/21/17 23:59 Weight 108.7 kg General: Conversant, No Apparent Distress HEENT: Atraumatic, Normocephaly, Mucus Membranes Moist Neck: No JVD, Normal carotid pulses Cardiac: Reg Rate and Rhythm, Normal S1 and S2, No Murmur Lungs: Normal Breath Sounds, No Wheeze, Rales, Rhonchi Neuro: Alert and responsive, No focal deficits noted Abdomen: Soft, Non-Tender Skin: No rashes noted on visualized skin Musculoskeletal: No Chest Wall Tenderness Extremities: No Clubbing, No Cyanosis, No Edema, Normal Pulses Results 01/21/17 03:38 01/21/17 03:38 Lab Results 01/21/17 01/21/17 03:38 03:38 WBC 8.3 Hgb 9.0 L Hct 30.7 L Plt Count 257 Sodium 136 Potassium 3.7 Chloride 99 Carbon Dioxide 25 BUN 21 Creatinine 1.05 Glucose 134 H Calcium 8.8 Short CBC 01/21/17 Range/Units 03:38 WBC 8.3 (4.3-11.1) K/mcL Hgb 9.0 L (12.9-16.9) g/dL Hct 30.7 L (37.5-50.1) % Plt Count 257 (140-400) K/mcL Neutrophils # 5.5 (1.6-8.9) K/mcL BMP 01/21/17 Range/Units 03:38 Sodium 136 (136-145) mEq/L Potassium 3.7 (3.5-4.5) mEq/L Chloride 99 (98-109) mEq/L Carbon Dioxide 25 (19-29) mEq/L BUN 21 (8-26) mg/dL Creatinine 1.05 (0.72-1.25) mg/dL Glucose 134 H (70-99) mg/dL Calcium 8.8 (8.6-10.8) mg/dL Active Medications Aspirin (Aspirin Ec) 81 mg PO DAILY [facility] Stop: 07/22/17 09:01 Last Admin: 01/21/17 08:14 Dose: 81 mg Carvedilol (Coreg) 12.5 mg PO BIDWM [facility]MELLA Stop: 07/22/17 08:14 Last Admin: 01/21/17 08:13 Dose: 12.5 mg Dextrose/Water (Dextrose 50% (Syg)) 25 ml IVP AD PRN PRN Reason: Hypoglycemia Stop: 07/21/17 13:29 Duloxetine HCl (Cymbalta) 60 mg PO DAILY [facility] Stop: 07/22/17 09:01 Last Admin: 01/21/17 08:13 Dose: 60 mg Ferrous Sulfate (Ferrous Sulfate) 325 mg PO BIDWM CARMELLA Stop: 07/22/17 08:01 Last Admin: 01/21/17 08:14 Dose: 325 mg Fluticasone Propionate (Flonase) 50 mcg NS DAILY [facility] PRN Reason: Protocol Stop: 07/22/17 09:01 Last Admin: 01/21/17 09:53 Dose: 50 mcg Furosemide (Lasix) 40 mg IVP BIDDIURETIC [facility] Stop: 07/22/17 17:01 Last Admin: 01/21/17 08:14 Dose: 40 mg Gabapentin (Neurontin) 300 mg PO BID [facility] Stop: 07/21/17 21:01 Last Admin: 01/21/17 08:14 Dose: 300 mg Glucagon (Glucagen) 1 mg IM ONCE PRN PRN Reason: Hypoglycemia Stop: 07/21/17 13:29 Glucose (Gluctose) 15 gm PO ONCE PRN PRN Reason: Hypoglycemia Stop: 07/21/17 13:29 Glucose (Gluctose) 30 gm PO ONCE PRN PRN Reason: Hypoglycemia Stop: 07/21/17 13:29 Dextrose (Dextrose 5%) 1,000 mls @ 100 mls/hr IVC .Q10H PRN PRN Reason: HYPOGLYCEMIA Stop: 07/21/17 13:29 Insulin Detemir (Levemir) 20 unit SQ DAILY [facility] Stop: 07/22/17 12:52 Last Admin: 01/21/17 09:55 Dose: Not Given Insulin Human Lispro (Humalog) 0 units SQ HS [facility] PRN Reason: Protocol Stop: 07/22/17 21:01 Last Admin: 01/20/17 22:36 Dose: 300 units Insulin Human Lispro (Humalog) 0 units SQ TIDAC [facility] PRN Reason: Protocol Stop: 07/22/17 16:31 Last Admin: 01/21/17 08:16 Dose: Not Given Losartan Potassium (Cozaar) 100 mg PO DAILY [facility] Stop: 07/22/17 09:01 Last Admin: 01/21/17 08:13 Dose: 100 mg Naloxone HCl (Narcan) 0.4 mg IVP Q2MIN PRN PRN Reason: Opioid Reversal Stop: 07/21/17 13:29 Nortriptyline HCl (Pamelor) 50 mg PO HS [facility] Stop: 07/21/17 21:01 Last Admin: 01/20/17 22:35 Dose: 50 mg Ondansetron HCl (Zofran) 4 mg IVP Q8HR PRN PRN Reason: Nausea And Vomiting Stop: 07/21/17 13:29 Pantoprazole Sodium (Protonix) 40 mg IVP Q12HR [facility] Stop: 07/22/17 18:01 Last Admin: 01/21/17 05:45 Dose: 40 mg Potassium Chloride (Potassium Chloride) 20 meq PO DAILY [facility] Stop: 07/22/17 12:01 Last Admin: 01/21/17 08:14 Dose: 20 meq Rosuvastatin Calcium (Crestor) 10 mg PO DAILY [facility] Stop: 07/22/17 09:01 Last Admin: 01/21/17 08:14 Dose: 10 mg Silver Nitrate (Silvasorb) 1 appl TP DAILY [facility] Stop: 07/22/17 15:16 Last Admin: 01/20/17 19:34 Dose: 1 appl Trazodone HCl (Trazodone) 100 mg PO HS [facility] Stop: 07/21/17 21:01 Last Admin: 01/20/17 22:35 Dose: 100 mg - Imaging and Cardiology Echo: report reviewed - EKG Interpretation EKG results cardiology: personally reviewed (SR with 1st degree block, PACs), other (24 hour tele AVG HR 86, SR with ectopy) Consult Discharge Plan - Plan Referrals: Neeraj Donis MD [Primary Care Provider] - 01/28/17 10:00 am (please follow up as schedule..)
--- NOTE | 2017-01-21 11:30 | Anesthesia Evaluation PreOp ---
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 History: Other (Depression) Other Medical History: Diabetes Type II Anesthesia History: No Prior Anesthetic Complications, Past Anesthesia Alcohol Use: none Drug use: none Medications and Allergies Aspirin 81 mg PO DAILY 01/19/17 [History] Carvedilol 12.5 mg PO BID 01/19/17 [History] Duloxetine HCl [Cymbalta] 60 mg PO DAILY 01/19/17 [History] Ferrous Sulfate [Iron] 325 mg PO BID 01/19/17 [History] Fluticasone Propionate Nasal [Flonase] 1 spray NS DAILY 01/19/17 [History] Furosemide [Lasix] 40 mg PO BID 01/19/17 [History] Gabapentin [Neurontin] 300 mg PO BID 01/19/17 [History] Glimepiride [Amaryl] 4 mg PO DAILY 01/19/17 [History] Insulin ASPART [Novolog Flexpen] 20 unit SQ TID 01/19/17 [History] Insulin Degludec [Tresiba Flextouch U-200] 60 unit SQ DAILY 01/19/17 [History] Losartan Potassium [Cozaar] 100 mg PO DAILY 01/19/17 [History] Metformin HCl [Glucophage] 1,000 mg PO BID 01/19/17 [History] Nortriptyline HCl 50 mg PO HS 01/19/17 [History] Ranitidine HCl [Zantac] 150 mg PO BID 01/19/17 [History] Rosuvastatin Calcium [Crestor] 10 mg PO DAILY 01/19/17 [History] Trazodone HCl 100 mg PO HS 01/19/17 [History] Allergies No Known Allergies Allergy (Verified 01/19/17 11:22) - Meds/Allergy Pre-op Review Medications Reviewed: Yes Allergies Reviewed: Yes Beta Blockers on Current Med List: Yes If Beta Blockers taken, Date/Time (Last Dose taken): 08:13 01/21/2017 Anesthesia Results - Labs 01/21/17 03:38 01/21/17 03:38 Echo 01/19/2017 EF 30-35% - Imaging EKG: image reviewed (ST, supraventricular premature complexes, Old Inf ND) Anesthesia Exam O2 Sat Weight 108.7 kg O2 Sat by Pulse Oximetry 96 O2 Sat by Pulse Oximetry 98 O2 Sat by Pulse Oximetry 96 O2 Sat by Pulse Oximetry 96 O2 Sat by Pulse Oximetry 95 O2 Sat by Pulse Oximetry 98 O2 Sat by Pulse Oximetry 97 Vital Signs Temp Pulse Resp BP Pulse Ox 97.6 F 118 18 174/79 99 01/19/17 09:10 01/19/17 09:10 01/19/17 09:10 01/19/17 09:10 01/19/17 09:10 Vital Signs/O2 Sat, Most Current Temp Pulse Resp BP Pulse Ox 97.8 F 85 20 104/65 96 01/21/17 11:35 01/21/17 11:35 01/21/17 11:35 01/21/17 11:35 01/21/17 11:35 Height: 5'9'' Weight: 239# NPO (# of Hours): > 8 hrs Pain Scale: 0 Pain Scale Used: Numeric (1 - 10) - HEENT Pupil (Motor): Pupils equal, EOMI Mallampati: III Teeth: Edentulous Denture Type: Upper: Complete, Lower: Complete Oral Opening: Greater than 3 - BUSINESS OBJECTS ARCHITECT LOC: Oriented BUSINESS OBJECTS ARCHITECT Motor: Normal RUE, Normal LUE, Normal RLE, Normal LLE, Normal Face BUSINESS OBJECTS ARCHITECT Sensory: Normal: RUE, LUE, RLE, LLE, Face - Cardiac Rhythm: Regular Murmur: None JVD: No Carotid Bruit: No - Pulmonary Breath Sounds: bilateral Clear Respiratory Effort: Symmetrical Anesthesia Assess/Plan ASA Score: 4 Modified [place] Scale for Level of Consciousness: Cooperative, oriented, and tranquil Anesthetic Plan: MAC Autologous Blood: Yes Monitoring Plan: Standard Monitors Recovery Plan: Other
[2017-01-21] MEDS ORDERED: *HR* Propofol 500 MG/50 ML BOTTLE IVC ONE (12:00)
[2017-01-21] MEDS ORDERED: *HR* Phenylephrine 10 MG/ML VIAL IVC ONE (12:00)
[2017-01-21] MEDS ORDERED: Simethicone 40 MG/0.6 ML MLS IR ONE (12:02)
[2017-01-21] MEDS ORDERED: Tetracaine/Benzocaine/Butamben 200MG/SPRAY (100SPY/BOT) MM ONE (12:02)
--- NOTE | 2017-01-21 13:20 | Anesthesia Evaluation Post Op ---
Date of Encounter: 01/21/17 Time of Encounter: 13:19 - Vital Signs Vital Signs: 3 Vital Signs Time 1317 BP 84/53 Pulse 76 Resp 16 O2 Sat 92 - Lungs Lungs: Clear Ascult./Percussion - Airway Airway: Non-obstructed - Cardiovascular Regular Rate - Mental Status Mental Status: Alert & Oriented, Answers Appropriately - Pain Pain Scale: 0 - Nausea Vomiting Nausea Vomiting: Not Present - Hydration Hydration: NPO, Has not voided - Discharge PostOp Status: Transfer Patient to floor
--- NOTE | 2017-01-21 15:27 | Electrocardiograph Report ---
[email or web address] Test Date: 2017-01-19 Pat Name: Afshin Simmons Department: 102 Room: 2A26 Gender: M Lead Nurse: : 1950 Requested By: Jhon Billings Order Number: [id number] Reading MD: Armando Contreras MD Measurements Intervals [place] Rate: 114 P: 32 OK: 187 QRS: 59 QRSD: 124 T: 141 QT: 339 QTc: 407 Interpretive Statements SINUS TACHYCARDIA WITH OCCASIONAL SUPRAVENTRICULAR PREMATURE COMPLEXES POSSIBLE INFERIOR MYOCARDIAL INFARCTION [30 ms Q WAVE IN II/aVF], PROBABLY OLD ABNORMAL RHYTHM ECG Electronically Signed On 01-21-2017 15:26:09 EDT by Armando Contreras MD
[2017-01-21] MEDS: Silvasorb 44.4 ML TUBE TP SCH (16:40)
[2017-01-21] MEDS: Furosemide 40 MG TABLET PO SCH (16:46)
--- NOTE | 2017-01-21 17:00 | Internal Med Progress Note ---
Date of Encounter: 01/21/17 Time of Encounter: 08:45 - Assessment and plan (1) CHF (congestive heart failure) Current Visit: Yes Status: Acute Assessment and plan: Continue Lasix. Limited 2-D echocardiogram shows EF of 30-35%. Cardiology consulted. Recommend complete TTE. Also obtain records from [facility]. Appreciate cardiology input. Qualifiers: Congestive heart failure type: systolic Congestive heart failure chronicity : unspecified congestive heart failure chronicity Qualified Code(s): I50.20 - Unspecified systolic (congestive) heart failure (2) Anemia Current Visit: Yes Status: Acute Assessment and plan: Hemoglobin levels are stable. Awaiting upper GI endoscopy and colonoscopy today. Moderate risk for complications Qualifiers: Anemia type: iron deficiency Iron deficiency anemia type: chronic blood loss Qualified Code(s): D50.0 - Iron deficiency anemia secondary to blood loss (chronic) (3) Depression Current Visit: Yes Status: Chronic Qualifiers: Depression Type: unspecified Qualified Code(s): F32.9 - Major depressive disorder, single episode, unspecified (4) Elevated troponin Current Visit: Yes Status: Acute Assessment and plan: Likely from demand ischemia and anemia. Follow cardiology recommendations (5) Guaiac positive stools Current Visit: Yes Status: Acute (6) Wound of lower extremity Current Visit: Yes Status: Chronic Assessment and plan: Local wound care Qualifiers: Encounter type: initial encounter Laterality: left Qualified Code(s): S81.802A - Unspecified open wound, left lower leg, initial encounter (7) Diabetes mellitus Current Visit: Yes Status: Chronic Assessment and plan: Improved blood sugars today. Patient was nothing by mouth overnight. We will continue to monitor blood sugars and adjust insulin regimen accordingly Qualifiers: Diabetes mellitus type: type 2 Diabetes mellitus complication status: with ophthalmic complications Diabetes mellitus complication detail: with diabetic retinopathy Diabetic retinopathy severity: with unspecified retinopathy severity Diabetes mellitus macular edema: macular edema presence unspecified Diabetes mellitus mcc insulin use: with mcc use Laterality: unspecified laterality Qualified Code(s): E11.319 - Type 2 diabetes mellitus with unspecified diabetic retinopathy without macular edema; Z79.4 - skilled nursing ( current) use of insulin (8) Hypertension Current Visit: Yes Status: Chronic Assessment and plan: Blood pressure is well controlled Qualifiers: Hypertension type: essential hypertension Qualified Code(s): I10 - Essential (primary) hypertension - Subjective Interval history: patient continues to improve. Denies any new complaints at this time. No chest pain fever or chills. Shortness of breath is improving - Constitutional Vitals: Temp Pulse Resp BP Pulse Ox 98.4 F 86 15 102/65 95 01/21/17 16:22 01/21/17 16:22 01/21/17 16:22 01/21/17 16:22 01/21/17 16:22 General appearance: Present: cooperative, mild distress, A&O X 3, answers questions appropriately - Eye Eye exam: Present: EOMI, PERRL, conjuntiva pink, sclera anicteric - Neck Neck exam general surgery: Present: supple, trachea midline. Absent: lymphadenopathy - Respiratory Respiratory exam: Present: CTAB. Absent: accessory muscle use, rales, rhonchi, wheezes - Cardiovascular Cardiovascular exam: Present: RRR, +S1, +S2. Absent: diastolic murmur, gallop, rubs, systolic murmur - Extremities Exam Extremities exam: Present: pedal edema, warm, radial pulses palpable and symetrical. Absent: calf tenderness, cyanotic - Neurological Exam Neurological exam: Present: alert, oriented X3, no focal deficits. Absent: facial droop, speech deficit - Skin Skin exam: Present: dry, intact Internal Medicine: Result - Labs CBC & Chem 7: 01/21/17 03:38 01/21/17 03:38 Labs: Short CBC 01/21/17 Range/Units 03:38 WBC 8.3 (4.3-11.1) K/mcL Hgb 9.0 L (12.9-16.9) g/dL Hct 30.7 L (37.5-50.1) % Plt Count 257 (140-400) K/mcL Neutrophils # 5.5 (1.6-8.9) K/mcL BMP 01/21/17 03:38 Sodium 136 Potassium 3.7 Chloride 99 Carbon Dioxide 25 BUN 21 Creatinine 1.05 Glucose 134 H Calcium 8.8 - ABG Interpretation ABG results: PT/INR, D-dimer PT 15.2 Seconds (9.4-12.1) H 01/20/17 03:04 Consult Discharge Plan - Plan Referrals: Neeraj Donis MD [Primary Care Provider] - 01/28/17 10:00 am (please follow up as schedule..) - Attending Attestation This document has been at least partially created by [employer] recognition technology by Dr. Qureshi. Errors in grammar, wording or other phrases may exist. If errors are found after the documentation is signed, they will be addressed individually in the addendum section of this document when appropriate.
[2017-01-21] MEDS: traZODone 50 MG TABLET PO SCH (21:35)
[2017-01-22 04:45] LABS: Basophils % 0.4 %; Eosinophils # 0.2 K/mcL (0.0-0.6); Eosinophils % 2.5 %; Hematocrit 29.3 % (37.5-50.1); Hemoglobin 8.6 g/dL (12.9-16.9); Immature Granulocytes % 0.3 % (0-4); Lymphocytes % 11.5 %; Mean Corpuscular HGB Conc 29.4 g/dL (31.6-35.5); Mean Corpuscular Volume 71.5 fL (83.0-100.0); Mean Platelet Volume 11.3 fL (9.4-12.4); Monocytes # 0.7 K/mcL (0.0-1.3); Monocytes % 7.7 %; Nucleated Red Blood Cells 0.2 /100 WBC (0); Platelet Count 272 K/mcL (140-400); Red Cell Distribution Width 20.9 % (11.5-14.5); Segmented Neutrophils % 77.6 %
[2017-01-22 05:05] LABS: BUN/Creatinine Ratio 15 (6-26); Blood Urea Nitrogen 18 mg/dL (8-26); Calcium 8.9 mg/dL (8.6-10.8); Carbon Dioxide 26 mEq/L (19-29); Chloride 99 mEq/L (98-109); Glucose 322 mg/dL (70-99); Osmolality,Calculated 292 (280-300); Potassium 3.9 mEq/L (3.5-4.5); Sodium 134 mEq/L (136-145); eGFR For African Americans > 60 (> 60); eGFR For Non-African Americans > 60 (> 60)
[2017-01-22] MEDS: Pantoprazole 40 MG VIAL IVP SCH (05:37)
[2017-01-22] MEDS ORDERED: Regadenoson 0.4 MG/5 ML SYRINGE IVP ONE (06:22)
[2017-01-22] MEDS: Insulin DETEMIR 100 UNIT/ML X5UNITS SQ SCH ×2 (08:50→22:14)
[2017-01-22] MEDS: Furosemide 40 MG TABLET PO SCH ×2 (11:37→18:29)
[2017-01-22] MEDS: Gabapentin 300 MG CAPSULE PO SCH ×2 (11:37→22:11)
[2017-01-22] MEDS: Aspirin Enteric Coated 81 MG Tablet PO SCH (11:37)
[2017-01-22] MEDS: Insulin LISPRO 300 UNITS/3 ML VIAL SQ SCH ×4 (11:39→22:11)
[2017-01-22] MEDS: Fluticasone Propionate Nasal 50 MCG/SPRAY BOTTLE NS SCH (11:40)
--- NOTE | 2017-01-22 13:09 | Nuclear Medicine Stress Report ---
Regadenoson Nuclear Stress Name: Afshin Simmons Date of Study: 01/22/2017 Date: 1950 Ht: 68.0 in Medical Record#: [id number] Age: 66 Wt: 244.0 lb Gender: Male Order #: [id number] Location: [facility] OP Room: Supervising Provider: Greta Ballard CNP Reading Physician: Maryana Chambers DO Ordering Physician: Ayaan Albarran CNP Primary Care Physician: Neeraj Donis MD Stress Technologist: Rimma Jansen, [facility] Doctor Of Dental Medicine: Rocio Dhillon Indications: Chest Pain, Coronary Artery Disease Impression: Perfusion imaging was positive for infarct without ischemia (see Findings below). Pharmacologic ECG was non diagnostic for ischemia. Gated EF = 40%. The LV is dilated. There is evidence of TID. Recommend clinical correlation. History: Hypertension Diabetes Hypercholesteremia Prior PCI Stress Test Summary: Stress Test Type: Pharmacologic Regadenoson 0.4mg/5ml given IV Baseline Information: Initial Heart Rate: 96 Blood Pressure: 116/68 Stress Information: Test Terminated Due to (primary): As per protocol Maximum Blood Pressure: 108/62 Maximum Heart Rate: 97 Percent Maximum Heart Rate Achieved: 64 Double Product: [id number] METS Reached: 1 Symptoms: Shortness of breath Nuclear Summary: SPECT myocardial perfusion imaging using Tc99m Sestamibi given intravenously was performed at rest and following cardiac stress testing. The resting images were obtained following initial dose of 10.2 mCi. Following stress an additional dose of 32.2 mCi was given at peak exercise or 30 seconds post regadenoson infusion. Medication Given: Time Medication Dose Units Route Findings: Stress Note * Resting ECG demonstrated normal sinus rhythm with nonspecific ST-T abnormalities and IVCD. * Pharmacologic stress ECG is nondiagnostic for ischemia. No appreciable change from baseline ECG. * No arrhythmias were noted during stress. * Patient had no chest pain during stress. Hemodynamic responses * Normal hemodynamic responses to pharmacologic stress. Study Quality * Study quality was fair. Gated EF % * Gated EF = 40%. Left Ventricle * The left ventricle is dilated. TID * There is transient ischemic dilatation. Lung Uptake * There is no evidence of increase lung uptake. PERFUSION * There is a medium sized, severely reduced intensity, fixed perfusion defect involving the basal to distal inferior and inferolateral grubbs. Wall motion is abnormal in this area. Findings represent infarct. * Other areas demonstrated normal rest and stress perfusion. Updated by Maryana Chambers on 01/22/2017 12:59:16 PM electronically signed on 01/22/2017 1:02:13 PM with status of Final
--- NOTE | 2017-01-22 14:27 | Event Note ---
Date of Encounter: 01/22/17 Time of Encounter: 14:10 - Cardiology Event Note Seen and examined. s/p EGD and colonoscopy yesterday--cauterized oozing gastric ulcer. H/H remains stable this AM. Denies melena, abnormal or unusual bleeding. TTE Limited 01/19/17: LVEF 30-35%, global LV systolic dysfunction TTE 01/21/17: LVEF 35%, global systolic dysfunction (not all grubbs were visualized ), moderate LVDD, mild-moderate MR/TR, mild PH Regadenoson nuclear: evidence of TID, gated EF=40%, basal to distal inferior and inferolateral wall defect consistent with infarct. Reviewed records from [facility] in 2002. LHC 11/07/2002: severe 1 vessel CAD s/p PCI to pLCx, EF 50%. Given new cardiomyopathy and abnormal stress test recommend proceeding with LHC with possible PCI. Alternatives, risks, and benefits discussed; patient is agreeable to proceed. All questions and concerns were addressed; daughter present at bedside. NPO except medications now, plan for LHC later this afternoon. The patient was discussed and reviewed with Dr. Huitron who agrees with plan as stated above.
[2017-01-22] MEDS ORDERED: 0.9 % Sodium Chloride 1,000 ML ONE ×2 (16:01→16:40)
[2017-01-22] MEDS ORDERED: Heparin 1,000 UNITS/500 mL NS 500 ML ONE (16:02)
[2017-01-22] MEDS ORDERED: *HR* Heparin 10,000 UNIT/10 ML VIAL ONE (16:02)
--- NOTE | 2017-01-22 16:18 | Pre-Sedation Evaluation ---
Pre-sedation evaluation - Pre-sedation checklist Date of procedure: 01/22/17 Procedure: c Recent Vitals: Last Vital Signs Temp 97.7 F 01/22/17 12:00 Pulse 110 01/22/17 12:00 Resp 18 01/22/17 12:00 BP 127/76 01/22/17 12:00 Pulse Ox 90 01/22/17 12:00 H&P (including ROS) documented in medical record: Yes Previous reaction to sedatives/anesthetics: No Dietary Status: NPO after Midnight ASA Classification *see protocol: CLASS II-Mild systemic disease Plan of Care: Pt appropriate candidate for procedure/moderate/conscious sedation , Risks/benefits of procedure/sedation discussed w/ patient/family
--- NOTE | 2017-01-22 16:25 | Internal Med Progress Note ---
Date of Encounter: 01/22/17 Time of Encounter: 09:15 - Assessment and plan (1) CHF (congestive heart failure) Current Visit: Yes Status: Acute Assessment and plan: Continue oral Lasix. Patient is clinically improving. Cardiology following. Recommend cardiac stress test today. We will follow results and cardiology recommendations. Qualifiers: Congestive heart failure type: systolic Congestive heart failure chronicity : unspecified congestive heart failure chronicity Qualified Code(s): I50.20 - Unspecified systolic (congestive) heart failure (2) Anemia Current Visit: Yes Status: Chronic Assessment and plan: hemoglobin remains stable. Patient started on PPI and Carafate. May be due to chronic low-volume GI bleed. Qualifiers: Anemia type: iron deficiency Iron deficiency anemia type: chronic blood loss Qualified Code(s): D50.0 - Iron deficiency anemia secondary to blood loss (chronic) (3) Depression Current Visit: Yes Status: Chronic Assessment and plan: Continue trazodone and Cymbalta Qualifiers: Depression Type: unspecified Qualified Code(s): F32.9 - Major depressive disorder, single episode, unspecified (4) Elevated troponin Current Visit: Yes Status: Acute Assessment and plan: Will follow results of stress test. (5) Guaiac positive stools Current Visit: Yes Status: Acute Assessment and plan: Chronic gastric ulcer with some oozing that was coagulated. (6) Wound of lower extremity Current Visit: Yes Status: Chronic Assessment and plan: Continue local wound care. Wound is healing well. Qualifiers: Encounter type: initial encounter Laterality: left Qualified Code(s): S81.802A - Unspecified open wound, left lower leg, initial encounter (7) Diabetes mellitus Current Visit: Yes Status: Chronic Assessment and plan: Blood sugars remain elevated. We will increase long-acting insulin dosage. Qualifiers: Diabetes mellitus type: type 2 Diabetes mellitus complication status: with ophthalmic complications Diabetes mellitus complication detail: with diabetic retinopathy Diabetic retinopathy severity: with unspecified retinopathy severity Diabetes mellitus macular edema: macular edema presence unspecified Diabetes mellitus clinical training specialist insulin use: with penitentiary use Laterality: unspecified laterality Qualified Code(s): E11.319 - Type 2 diabetes mellitus with unspecified diabetic retinopathy without macular edema; Z79.4 - stroke program coordinator ( current) use of insulin (8) Hypertension Current Visit: Yes Status: Chronic Assessment and plan: Blood pressure is well controlled. Qualifiers: Hypertension type: essential hypertension Qualified Code(s): I10 - Essential (primary) hypertension (9) Gastric ulcer Current Visit: Yes Status: Chronic Assessment and plan: Chronic gastric ulcer without hemorrhage found on upper GI endoscopy. It was oozing mildly. Treated with argon plasma coagulation. On PPI and Carafate. Qualifiers: Gastric ulcer chronicity: chronic Gastric ulcer complication status: without hemorrhage or perforation Qualified Code(s): K25.7 - Chronic gastric ulcer without hemorrhage or perforation - Subjective Interval history: Patient doing well. Denies any chest pain shortness of breath or palpitations. No hematochezia or melena. Tolerated up with GI endoscopy and colonoscopy yesterday. Was found to have a chronic gastric ulcer with some oozing that was treated with argon plasma coagulation and biopsied. Patient also had some esophagitis. - Constitutional Vitals: Temp Pulse Resp BP Pulse Ox 97.7 F 110 18 127/76 90 01/22/17 12:00 01/22/17 12:00 01/22/17 12:00 01/22/17 12:01/22/17 12:00 General appearance: Present: cooperative, mild distress, A&O X 3, answers questions appropriately - Respiratory Respiratory exam: Present: CTAB. Absent: accessory muscle use, rales, rhonchi, wheezes - Cardiovascular Cardiovascular exam: Present: RRR, +S1, +S2. Absent: diastolic murmur, gallop, rubs, systolic murmur - GI/Abdominal GI/Abdominal exam: Present: normal bowel sounds, soft, no peritoneal signs. Absent: distended, tenderness - Extremities Exam Extremities exam: Present: warm, radial pulses palpable and symetrical. Absent : calf tenderness, cyanotic, pedal edema - Skin Skin exam: Present: dry, intact Internal Medicine: Result - Labs CBC & Chem 7: 01/22/17 04:12 01/22/17 04:12 Labs: Short CBC 01/22/17 Range/Units 04:12 WBC 9.1 (4.3-11.1) K/mcL Hgb 8.6 L (12.9-16.9) g/dL Hct 29.3 L (37.5-50.1) % Plt Count 272 (140-400) K/mcL Neutrophils # 7.0 (1.6-8.9) K/mcL BMP 01/22/17 04:12 Sodium 134 L Potassium 3.9 Chloride 99 Carbon Dioxide 26 BUN 18 Creatinine 1.17 Glucose 322 H Calcium 8.9 - ABG Interpretation ABG results: PT/INR, D-dimer PT 15.2 Seconds (9.4-12.1) H 01/20/17 03:04 Consult Discharge Plan - Plan Referrals: Neeraj Donis MD [Primary Care Provider] - 01/28/17 10:00 am (please follow up as schedule..) - Attending Attestation This document has been at least partially created by [employer] recognition technology by Dr. Qureshi. Errors in grammar, wording or other phrases may exist. If errors are found after the documentation is signed, they will be addressed individually in the addendum section of this document when appropriate.
[2017-01-22] MEDS ORDERED: Verapamil 5 MG/2 ML VIAL ONE (16:40)
[2017-01-22] MEDS ORDERED: Nitroglycerin 1,000 MCG/10 ML VIAL IV ONE (16:41)
[2017-01-22] MEDS ORDERED: *HR* Midazolam HCl 5 MG/5 ML VIAL IVP ONE (16:42)
[2017-01-22] MEDS ORDERED: *HR* FentaNYL (PF) 100 MCG/2 ML VIAL ONE (16:42)
[2017-01-22] MEDS ORDERED: Tirofiban 12.5 MG/250ML 12.5 MG/250 ML BAG ONE (17:13)
[2017-01-22] MEDS: Sucralfate 1 GM TABLET PO SCH (18:29)
[2017-01-22] MEDS: Silvasorb 44.4 ML TUBE TP SCH (18:32)
[2017-01-22] MEDS: traZODone 50 MG TABLET PO SCH (22:12)
[2017-01-23 05:28] LABS: Basophils % 0.5 %; Immature Granulocytes % 0.2 % (0-4)
[2017-01-23 05:29] LABS: Eosinophils # 0.4 K/mcL (0.0-0.6); Eosinophils % 4.4 %; Hematocrit 30.5 % (37.5-50.1); Hemoglobin 8.6 g/dL (12.9-16.9); Lymphocytes # 1.3 K/mcL (0.6-4.6); Lymphocytes % 15.6 %; Mean Corpuscular HGB Conc 28.2 g/dL (31.6-35.5); Mean Corpuscular Hemoglobin 20.5 pg (28.0-33.3); Mean Corpuscular Volume 72.6 fL (83.0-100.0); Mean Platelet Volume 10.4 fL (9.4-12.4); Monocytes # 0.8 K/mcL (0.0-1.3); Monocytes % 9.9 %; Neutrophils # 5.7 K/mcL (1.6-8.9); Platelet Count 249 K/mcL (140-400); Red Cell Distribution Width 21.1 % (11.5-14.5); Segmented Neutrophils % 69.4 %
[2017-01-23 05:51] LABS: BUN/Creatinine Ratio 16 (6-26); Blood Urea Nitrogen 16 mg/dL (8-26); Calcium 9.1 mg/dL (8.6-10.8); Carbon Dioxide 29 mEq/L (19-29); Chloride 102 mEq/L (98-109); Glucose 103 mg/dL (70-99); Osmolality,Calculated 287 (280-300); Potassium 3.7 mEq/L (3.5-4.5); Sodium 138 mEq/L (136-145); eGFR For African Americans > 60 (> 60); eGFR For Non-African Americans > 60 (> 60)
[2017-01-23 05:54] LABS: Hypochromasia Present (Not Present); Macrocytosis Present (Not Present); Polychromasia 1+ (Not Present)
[2017-01-23 05:55] LABS: Large Platelets Present (Not Present); Microcytosis Present (Not Present); Platelet Estimate Normal (Normal)
[2017-01-23] MEDS: Sucralfate 1 GM TABLET PO SCH (08:00)
[2017-01-23] MEDS: Aspirin Enteric Coated 81 MG Tablet PO SCH (08:01)
[2017-01-23] MEDS: Furosemide 40 MG TABLET PO SCH (08:01)
[2017-01-23] MEDS: Gabapentin 300 MG CAPSULE PO SCH (08:01)
[2017-01-23] MEDS: Fluticasone Propionate Nasal 50 MCG/SPRAY BOTTLE NS SCH (08:03)
[2017-01-23] MEDS: Insulin LISPRO 300 UNITS/3 ML VIAL SQ SCH ×2 (08:03→11:36)
[2017-01-23] MEDS: Insulin DETEMIR 100 UNIT/ML X5UNITS SQ SCH (08:30)
--- NOTE | 2017-01-23 09:56 | Cardiology Progress Note ---
Date of Encounter: 01/23/17 Time of Encounter: 10:30 Assessment and Plan (1) CHF (congestive heart failure) Current Visit: Yes Status: Acute Presented with worsening shortness of breath over the past 3 months; was found to have new CHF and acute GI bleed upon presentation. ([facility]) [facility] 11/07/2002: severe 1 vessel CAD s/p PCI to pLCx, EF 50%. TTE Limited 01/19/17: LVEF 30-35%, global LV systolic dysfunction TTE 01/21/17: LVEF 35%, global systolic dysfunction (not all grubbs were visualized ), moderate LVDD, mild-moderate MR/TR, mild PH Regadenoson nuclear: evidence of TID, gated EF=40%, basal to distal inferior and inferolateral wall defect consistent with infarct. [facility] 01/22/17: severe 2v CAD s/p PTCA of LCx. SIDE PULLER of mRCA--small, non-dominant, not amendable to PCI. Appears euvolemic upon exam. CHF education provided including importance of Na/ fluid restriction diet and daily weights. Continue asa, statin, betablocker, ARB, and diuretic. Continue strict I&O, Na/ fluid restriction diet, and daily weights. Cardiology will sign-off, will coordinate appt in the outpatient setting within 1-2 weeks. Qualifiers: Congestive heart failure type: systolic Congestive heart failure chronicity : unspecified congestive heart failure chronicity Qualified Code(s): I50.20 - Unspecified systolic (congestive) heart failure (2) CAD (coronary artery disease) Current Visit: Yes Status: Chronic Hx of CAD s/p SD and PCI of LCx at [place] in 2002. [facility] 01/22/17--PTCA to LCx. Recommend DAPT (asa + plavix) for at least 1 month. Continue asa, statin, and betablocker. Cardiac rehab order placed. Qualifiers: Coronary Disease-Associated Artery/Lesion type: craig artery [place] vs. transplanted heart: craig heart Associated angina: without angina Qualified Code(s): I25.10 - Atherosclerotic heart disease of craig coronary artery without angina pectoris (3) Guaiac positive stools Current Visit: Yes Status: Acute H/H stable this AM. s/p EGD and colonoscopy 01/21/17--cauterized oozing gastric ulcer. Denies melena, abnormal or unusual bleeding. Will need close outpatient monitoring of H/H while on DAPT therapy. Discussion w patient/family: The assessment and plan as outlined above was discussed with the patient and/or family members who expressed understanding and agreement. All questions were answered. Thank you for involving us in the care of your patient. Please call with any questions. The patient was discussed and reviewed with Dr. Huitron; Cardiology will sign-off , please call with questions. Subjective Principal diagnosis: GI bleed, CHF Interval history: Seen and examined. Discussed test results, recommendations, and plan at length with patient this AM. He has no complaints this morning--reports LE edema has improved, RLE redness improved (present upon admission), and abdominal distention has decreased. He denies chest pain or discomfort, dypsnea or orthopnea. No issues with right radial cath site. Objective Vital Signs, Last 4 Hours Temp Pulse Resp BP Pulse Ox 01/23/17 07:44 97.5 F L 93 17 111/63 96 General: Conversant, No Apparent Distress HEENT: Atraumatic, Normocephaly, Mucus Membranes Moist Cardiac: Reg Rate and Rhythm, Normal S1 and S2 Lungs: Normal Breath Sounds Neuro: Alert and responsive Abdomen: Soft, Other (mild abdominal distention noted) Skin: Other (RLE redness/open wound to hernandez) Extremities: Other (mild pre-tibial LE edema. Right radial cath site healing, no oozing, ecchymosis, or bleeding noted. ) Results 01/23/17 05:09 01/23/17 05:09 Lab Results 01/23/17 01/23/17 05:09 05:09 WBC 8.2 Hgb 8.6 L Hct 30.5 L Plt Count 249 Sodium 138 Potassium 3.7 Chloride 102 Carbon Dioxide 29 BUN 16 Creatinine 0.98 Glucose 103 H Calcium 9.1 Active Medications Aspirin (Aspirin Ec) 81 mg PO DAILY [facility] Stop: 07/22/17 09:01 Last Admin: 01/23/17 08:01 Dose: 81 mg Carvedilol (Coreg) 12.5 mg PO BIDWM [facility] Stop: 07/22/17 08:14 Last Admin: 01/23/17 08:04 Dose: 12.5 mg Clopidogrel Bisulfate (Plavix) 75 mg PO DAILY [facility] Stop: 12/09/17 09:46 Dextrose/Water (Dextrose 50% (Syg)) 25 ml IVP AD PRN PRN Reason: Hypoglycemia Stop: 07/21/17 13:29 Duloxetine HCl (Cymbalta) 60 mg PO DAILY [facility] Stop: 07/22/17 09:01 Last Admin: 01/23/17 08:00 Dose: 60 mg Ferrous Sulfate (Ferrous Sulfate) 325 mg PO BIDWM [facility] Stop: 07/22/17 08:01 Last Admin: 01/23/17 08:00 Dose: 325 mg Fluticasone Propionate (Flonase) 50 mcg NS DAILY [facility] PRN Reason: Protocol Stop: 07/22/17 09:01 Last Admin: 01/23/17 08:03 Dose: Not Given Furosemide (Lasix) 40 mg PO BIDDIURETIC [facility] Stop: 07/23/17 17:01 Last Admin: 01/23/17 08:01 Dose: 40 mg Gabapentin (Neurontin) 300 mg PO BID [facility] Stop: 07/21/17 21:01 Last Admin: 01/23/17 08:01 Dose: 300 mg Insulin Detemir (Levemir) 20 unit SQ BID [facility] Stop: 07/24/17 09:01 Last Admin: 01/23/17 08:30 Dose: 20 unit Insulin Human Lispro (Humalog) 0 units SQ HS [facility] PRN Reason: Protocol Stop: 07/22/17 21:01 Last Admin: 01/22/17 22:11 Dose: 3 units Insulin Human Lispro (Humalog) 0 units SQ TIDAC [facility] PRN Reason: Protocol Stop: 07/22/17 16:31 Last Admin: 01/23/17 08:03 Dose: Not Given Losartan Potassium (Cozaar) 100 mg PO DAILY [facility] Stop: 07/22/17 09:01 Last Admin: 01/23/17 08:59 Dose: 100 mg Naloxone HCl (Narcan) 0.4 mg IVP Q2MIN PRN PRN Reason: Opioid Reversal Stop: 07/21/17 13:29 Nortriptyline HCl (Pamelor) 50 mg PO HS [facility] Stop: 07/21/17 21:01 Last Admin: 01/22/17 22:09 Dose: 50 mg Omeprazole (Prilosec) 40 mg PO BIDAC [facility] PRN Reason: Protocol Stop: 07/24/17 16:31 Last Admin: 01/23/17 08:01 Dose: 40 mg Ondansetron HCl (Zofran) 4 mg IVP Q8HR PRN PRN Reason: Nausea And Vomiting Stop: 07/21/17 13:29 Potassium Chloride (Potassium Chloride) 20 meq PO DAILY [facility] Stop: 07/22/17 12:01 Last Admin: 01/23/17 08:00 Dose: 20 meq Rosuvastatin Calcium (Crestor) 20 mg PO DAILY [facility] Stop: 07/22/17 09:01 Last Admin: 01/23/17 08:01 Dose: 20 mg Silver Nitrate (Silvasorb) 1 appl TP DAILY [facility] Stop: 07/22/17 15:16 Last Admin: 01/22/17 18:32 Dose: 1 appl Sucralfate (Carafate) 1 gm PO 0730,1630 [facility] Stop: 07/24/17 16:31 Last Admin: 01/23/17 08:00 Dose: 1 gm Trazodone HCl (Trazodone) 100 mg PO HS [facility] Stop: 07/21/17 21:01 Last Admin: 01/22/17 22:12 Dose: 100 mg - Imaging and Cardiology Chest Xray: report reviewed Echo: report reviewed Cardiac cath: report reviewed Other Results: 12 hour tele: avg HR=79 SR. No significant events noted. - EKG Interpretation EKG results cardiology: personally reviewed Consult Discharge Plan - Plan Referrals: Neeraj Donis MD [Primary Care Provider] - 01/28/17 10:00 am (please follow up as schedule..)
[2017-01-23 11:30] VITALS: BP 97/69
--- NOTE | 2017-01-23 11:41 | Discharge Summary ---
Date of Encounter: 01/23/17 Time of Encounter: 11:37 - Discharge Diagnosis (1) CHF (congestive heart failure) Priority: Primary Status: Acute Qualifiers: Congestive heart failure type: systolic Congestive heart failure chronicity : unspecified congestive heart failure chronicity Qualified Code(s): I50.20 - Unspecified systolic (congestive) heart failure (2) Anemia Priority: Secondary Status: Chronic Qualifiers: Anemia type: iron deficiency Iron deficiency anemia type: chronic blood loss Qualified Code(s): D50.0 - Iron deficiency anemia secondary to blood loss (chronic) (3) Depression Priority: Secondary Status: Chronic Qualifiers: Depression Type: unspecified Qualified Code(s): F32.9 - Major depressive disorder, single episode, unspecified (4) Elevated troponin Priority: Secondary Status: Acute (5) Guaiac positive stools Priority: Secondary Status: Acute (6) Wound of lower extremity Priority: Secondary Status: Chronic Qualifiers: Encounter type: initial encounter Laterality: left Qualified Code(s): S81.802A - Unspecified open wound, left lower leg, initial encounter (7) Diabetes mellitus Priority: Secondary Status: Chronic Qualifiers: Diabetes mellitus type: type 2 Diabetes mellitus complication status: with ophthalmic complications Diabetes mellitus complication detail: with diabetic retinopathy Diabetic retinopathy severity: with unspecified retinopathy severity Diabetes mellitus macular edema: macular edema presence unspecified 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 insulin use: with prison use Laterality: unspecified laterality Qualified Code(s): E11.319 - Type 2 diabetes mellitus with unspecified diabetic retinopathy without macular edema; Z79.4 - intermediate ( current) use of insulin (8) Hypertension Priority: Secondary Status: Chronic Qualifiers: Hypertension type: essential hypertension Qualified Code(s): I10 - Essential (primary) hypertension (9) Gastric ulcer Priority: Secondary Status: Chronic Qualifiers: Gastric ulcer chronicity: chronic Gastric ulcer complication status: without hemorrhage or perforation Qualified Code(s): K25.7 - Chronic gastric ulcer without hemorrhage or perforation (10) Cardiomyopathy Priority: Secondary Status: Acute Qualifiers: Cardiomyopathy type: ischemic Qualified Code(s): I25.5 - Ischemic cardiomyopathy (11) CAD (coronary artery disease) Priority: Secondary Status: Chronic Qualifiers: Coronary Disease-Associated Artery/Lesion type: [place] artery [place] vs. transplanted heart: [place] heart Associated angina: without angina Qualified Code(s): I25.10 - Atherosclerotic heart disease of [place] coronary artery without angina pectoris - Discharge Medications Prescriptions: Aspirin Enteric Coated [Aspirin EC] 81 mg PO DAILY #30 tablet. Carvedilol 12.5 mg PO BID #60 tablet Clopidogrel [Plavix] 75 mg PO DAILY #60 tablet Pantoprazole Sodium 40 mg PO BID #60 tablet. Rosuvastatin [Crestor] 20 mg PO DAILY #30 tablet Sucralfate [Carafate] 1 gm PO 0730,1630 #60 tablet Home Medications: Duloxetine HCl [Cymbalta] 60 mg PO DAILY 01/19/17 [History] Ferrous Sulfate [Iron] 325 mg PO BID 01/19/17 [History] Fluticasone Propionate Nasal [Flonase] 1 spray NS DAILY 01/19/17 [History] Furosemide [Lasix] 40 mg PO BID 01/19/17 [History] Gabapentin [Neurontin] 300 mg PO BID 01/19/17 [History] Glimepiride [Amaryl] 4 mg PO DAILY 01/19/17 [History] Insulin ASPART [Novolog Flexpen] 20 unit SQ TID 01/19/17 [History] Insulin Degludec [Tresiba Flextouch U-200] 60 unit SQ DAILY 01/19/17 [History] Losartan Potassium [Cozaar] 100 mg PO DAILY 01/19/17 [History] Metformin HCl [Glucophage] 1,000 mg PO BID 01/19/17 [History] Nortriptyline HCl 50 mg PO HS 01/19/17 [History] Trazodone HCl 100 mg PO HS 01/19/17 [History] Aspirin Enteric Coated [Aspirin EC] 81 mg PO DAILY #30 tablet. 01/23/17 [Rx] Carvedilol 12.5 mg PO BID #60 tablet 01/23/17 [Rx] Clopidogrel [Plavix] 75 mg PO DAILY #60 tablet 01/23/17 [Rx] Pantoprazole Sodium 40 mg PO BID #60 tablet. 01/23/17 [Rx] Rosuvastatin [Crestor] 20 mg PO DAILY #30 tablet 01/23/17 [Rx] Sucralfate [Carafate] 1 gm PO 0730,1630 #60 tablet 01/23/17 [Rx] Allergies/Adverse Reactions: Allergies No Known Allergies Allergy (Verified 01/19/17 11:22) Procedures/tests Complete & Pending: Procedures Performed prior 72 hours Category Date Time Status CL Cardiac Catheterization [CL] Routine Fine Arts Model 01/22/17 14:26 Ordered NM malvin perf SPECT multi [NM] Routine Exams 01/22/17 06:00 Taken EV echocardiogram Routine Y 01/21/17 11:07 Completed SP pharm nuclear stress Routine Y 01/21/17 15:44 Completed Date of admission: 01/19/17 14:02 Primary care physician: Neeraj Donis MD Consults: 01/20/17 15:13 Consult to Cardiology [CONS] Routine Comment: Consulting Provider: Cardiology Aby Reason for Consult: Cardiomyopathy low EF on echo; prior stent Time Notified: 15:14 Call Completed: Yes 01/23/17 10:56 Consult to Cardiac Rehabilitation-Phase1 [CONS] Routine Comment: Reason for Consult: systolic CHF--new Call Completed: No Consult to Nurse Navigator [CONS] Routine Comment: new systolic CHF Discharging clinician: Mattie Qureshi Anticipated date of discharge: 01/23/17 - Patient Status Disposition: Home, Self-Care Condition: Good Functional capacity at discharge: independent ambulation Overall status at discharge: patient is progressing back to baseline - Discharge Instructions Instructions: Pacemaker (DC), Diet for Ulcers and Gastritis (GEN) Follow Up With: Neeraj Donis MD [Primary Care Provider] - 01/28/17 10:00 am (please follow up as schedule..) Forms: ED Satisfaction Letter Additional Instructions: Follow Up with cardiology in 1-2 weeks - Diet and Activity Activity: as per the cardiac rehab Diet: diabetic diet, low fat, low cholesterol, low salt diet Hospital course: Mr. Simmons is a 66 year old male patient who has a history of coronary artery disease, hypertension, diabetes, hyperlipidemia who had come to the ER with complaints of progressive shortness of breath and worsening pedal edema. On arrival to the ER, patient was found to have significant pedal edema, and a low hemoglobin level of 8.8. Patient was started on treatment for CHF and was treated with intravenous Lasix. He also reported a history of taking multiple doses of Aleve every day for pain. GI was consulted to evaluate the patient and they did an EGD and colonoscopy which showed a chronic gastric ulcer with some oozing. Patient underwent a limited 2-D echocardiogram which showed a low ejection fraction of 35% . Cardiology was consulted. We were trying to obtain records from the patient's prior Cardiac catheterization in [place]. He also underwent a complete 2-D echocardiogram that showed wall motion abnormalities and so cardiology recommended nuclear stress test which showed an EF of 40% with a fixed perfusion defect involving the distal inferior and inferolateral grubbs. Cardiology recommended cardiac catheterization which the patient underwent yesterday. This showed severe 2 vessel coronary artery disease. Patient underwent PTCA of left circumflex, STRIPER SPRAY GUN of mid RCA which was not amenable to PCI. Cardiology recommends patient stay on dual antiplatelet therapy for at least 1 month. Patient's acute heart failure has significantly improved and he is currently stable for discharge home. His hemoglobin counts have been stable. He will follow up with cardiology and cardiac rehabilitation as outpatient. He does have high risk for bleeding due to use of antiplatelet therapy to presence of a gastric ulcer although it is chronic and not bleeding. He Will need close follow-up of his blood counts as outpatient. - Time Spent with Patient Total time spent providing and/or coordinating discharge services: Greater than 30 minutes (40 min) - Constitutional Vitals: Temp Pulse Resp BP Pulse Ox 97.5 F L 76 16 97/69 97 01/23/17 11:00 01/23/17 11:00 01/23/17 11:00 01/23/17 11:01/23/17 11:00 General appearance: Present: cooperative, mild distress, A&O X 3, answers questions appropriately - Neck Neck exam general surgery: Present: supple, trachea midline. Absent: lymphadenopathy - Respiratory Respiratory exam: Present: CTAB. Absent: accessory muscle use, rales, rhonchi, wheezes - Cardiovascular Cardiovascular exam: Present: RRR, +S1, +S2. Absent: diastolic murmur, gallop, rubs, systolic murmur - GI/Abdominal GI/Abdominal exam: Present: normal bowel sounds, soft, no peritoneal signs. Absent: distended, tenderness - Extremities Exam Extremities exam: Present: warm, radial pulses palpable and symetrical. Absent : calf tenderness, cyanotic, pedal edema Additional comments: Healing right lower extremity wounds - Attending Attestation This document has been at least partially created by [employer] recognition technology by Dr. Qureshi. Errors in grammar, wording or other phrases may exist. If errors are found after the documentation is signed, they will be addressed individually in the addendum section of this document when appropriate.
--- NOTE | 2017-01-23 15:17 | Invasive Diagnostic Lab Proc ---
Name: Afshin Simmons Date of Study: 01/22/2017 Date: 1950 Ht: 68.9in Medical Record#: [id number] Age: 66 Wt: 244.71lb Gender: Male BSA: 2.25 Order #: [id number] BMI: 36.24 Physicians Procedure Physician: Chan Zheng MD, FACC Referring MD: Referring MD: Staff Name Position Time In Gaby Levine RN Monitor 05:00 PM Tatiana You RN Hospital Tray Service Worker 05:00 PM Mikaela Bhakta RT Scrub 05:00 PM Torrey Nicholson RN Hospital Tray Service Worker 05:03 PM Indications Indication Abnormal Test - Stress Systolic chf Procedures Performed Procedure L HRT ARTERY/VENTRICLE ANGIO PRQ CARDIAC ANGIOPLAST 1 ART Pre-Procedure Checklist Informed consent is complete signed and on chart. H\\T\\P is on chart. ID band is on and ID verified with patient. Patient NPO for procedure The procedure was described for the patient and questions were answered. Blood Pressure: 127/76 ECG is on chart. Plan of Care Patient will tolerate the procedure without complications. Adequate level of comfort will be maintained. Hemodynamics will remain stable Patient will recover from procedure without complications. Respiratory function will be maintained. Cardiac rhythm will remain stable. Patient temperature will be maintained. Patient and/or family have verbalized understanding of the procedure. Patient Education Chief Complaint/Reason for Test: Cardiac Cath Developmental Category: Adult (18-64 years) Developmentally Appropriate for Age: Yes Learning Barriers: None Education Needs: Procedure Education Method: Verbal Information Taught: Cardiac Cath Educational Evaluation: Able to repeat information Intravenous Access Time IV Size Location DC'd Fluid/Drip Rate Units RN 20g 1 /" Patent On Arrival Rt Wrist Allergies No Known Allergies Vital Signs Time BP (mmHg) HR (bpm) O2 Sat. RR (bpm) LOC 127 / 76 110 90 % 18 05:01 PM / % 5 = Fully awake and oriented or at pre-proc level 05:01 PM / % 4 = Oriented but drowsy 05:16 PM / % 4 = Oriented but drowsy 04:59 PM 122 / 77 85 90 % 15 05:05 PM 98 / 53 80 90 % 16 05:07 PM 100 / 58 80 93 % 14 05:09 PM 101 / 63 80 93 % 17 05:14 PM 87 / 59 79 95 % 14 05:17 PM 97 / 60 78 95 % 14 05:19 PM 97 / 58 78 96 % 13 05:24 PM 97 / 58 78 96 % 13 05:29 PM 97 / 53 77 98 % 14 05:34 PM 97 / 64 77 97 % 15 05:39 PM 98 / 65 76 97 % 19 Procedural Medications Time Medication Dose Units Method Given By 04:55 PM Versed 2 mg Intravenous Tatiana You RN 04:55 PM Fentanyl 50 mcg Intravenous Tatiana You RN 05:02 PM Lidocaine 2% 0.5 ml Subcutaneous Chan Zheng MD, [facility] 05:02 PM Heparin 4000 units Nitroglycerin 200 mcg Verapamil 2.5 mg Intraarterial Chan Zheng MD, FAC 05:02 PM Versed 2 mg Intravenous Tatiana You RN 05:03 PM Fentanyl 25 mcg Intravenous Tatiana You RN 05:18 PM Aggrastat Bolus: 54 ml Intravenous Torrey Nicholson RN 05:19 PM Aggrastat 12.5mg/250ml 19.5 ml/hr Intravenous Torrey Nicholson RN 05:43 PM Plavix 600 mg Orally Torrey Nicholson RN 05:43 PM Aggrastat 12.5mg/250ml ml Dc'd Torrey Nicholson RN ASA Classification: CLASS II- Mild systemic disease (i.e. well-controlled diabetes, hypertension, asthma, cigarette smoking) Barby Score Preprocedure Postprocedure Activity 2- Moves 4 extremities sustained head lift Activity 2- Moves 4 extremities sustained head lift Circulation 2- SBP +/= 20 points of pre-anesthetic level Circulation 2- SBP +/= 20 points of pre-anesthetic level Consciousness 2- Awake and alert oriented x 3 Consciousness 2- Awake and alert oriented x 3 O2 Saturation 2- Able to maintain O2 satruation of 92% on room air O2 Saturation 2- Able to maintain O2 satruation of 92% on room air Respiratory 2- Able to deep breathe and cough well Respiratory 2- Able to deep breathe and cough well Total Score 10 Total Score 10 Contrast Agent: Isovue Diagnostic Contrast: 112 ml Total Contrast: 112 ml Fluoro Dose: 1510 mGy Procedure Log Time Note Enter By 04:08 PM CathStat 04:50 PM Pt arrived to [employer] 2 at 16:50 [facility] 04:50 PM Physician arrived 16:50 :50 PM Larry completed :51 PM Sign in performed according to hospital policy. 51 PM Procedure start 16:51 53 PM Time: 17: Patient comfortable and pain free: Yes 53 PM Time: 17:LOC: 5 = Fully awake and oriented or at pre-proc level 55 PM Time: : Versed 2 mg Intravenous Given by Tatiana You RN 55 PM Time: : Fentanyl 50 mcg Intravenous Given by Tatiana You RN [facility]:59 PM Vitals capture started with the following parameters, Patient=Adult, Interval=5 min, Initial Sjzagfnx=530 mmHg, Deflation Rate=5 mmHg, Cuff placed on Left Leg 04:59 PM HR=85 bpm, HPDB=155/77 mmhg, SpO2=90.0 %, Resp=15 B/min, Comment=sr 05:00 PM Patient charges- Angio tray pack, Navilyst 3mm J, Pulse Oximetry and ACIST tubing and transducer :00 PM IV Supplies used: J loop Angio Cath. 05:00 PM Gaby Levine RN Position: Monitor Time in: 17:00 : PM Tatiana You RN Position: Hospital Tray Service Worker Time in: 17:00 05:00 PM Mikaela Bhakta RT Position: Scrub Time in: 17:00 :01 PM Hair removed from procedure site in holding area using clippers. Right wrist and rt groin prepped with Chloraprep by Gaby Levine RN, safety strap applied then patient was draped. Skin intact. : PM Clinical Presentation: Unstable angina :02 PM Time out performed according to hospital policy : PM Time: 17: 0.5 ml Lidocaine 2% to right radial Subcutaneous Given by Chan Zheng MD, [facility] 05:02 PM Access obtained by percutaneous puncture. 6Fr 11cm Terumo Glidesheath sheath placed in right Radial artery. [id number] :02 PM Time: 17:02 Patient given 4,000 units Heparin, 200 mcg Nitroglycerin, and 2.5 mg Verapamil Intraarterial by Chan Zheng MD, [facility] [email or web address] 05:03 PM Time: 17:02 Versed 2 mg Intravenous Given by Tatiana You RN [email or web address] 05:03 PM Time: 17:03 Fentanyl 25 mcg Intravenous Given by Tatiana You RN 05:03 PM Torrey Nicholson RN Position: Hospital Tray Service Worker Time in: 17:03 to relieve Tatiana You RN [email or web address] 05:04 PM 0.035 145cm VSI Raf-Torque wire [id number] [email or web address] 05:05 PM HR=80 bpm, NIBP=98/53 mmhg, SpO2=90.0 %, Resp=16 B/min, Comment=sr 05:05 PM 5Fr TIG catheter inserted over the wire [facility] [email or web address] 05:05 PM RCA angiography performed in multiple views. [email or web address] 05:05 PM repositioning catheter to LCA [email or web address] 05:06 PM Catheter removed [email or web address] 05:06 PM 5Fr FL3.5 catheter inserted over the wire [id number] [email or web address] 05:06 PM NIBP STAT measurement started. 05:07 PM HR=80 bpm, OBAB=068/58 mmhg, SpO2=93.0 %, Resp=14 B/min, Comment=sr 05:07 PM Coronary Dominance: Left scoates 05:07 PM Recorded Pressure: Ao, HR=80, Condition=Condition 1 (Aorta) Ao 85/65/76 05:07 PM LCA angiography performed in multiple views. scoates 05:09 PM Case Delayed no, inpatient scoates 05:09 PM Catheter removed scoates 05:09 PM HR=80 bpm, BDCD=916/63 mmhg, SpO2=93.0 %, Resp=17 B/min, Comment=sr 05:10 PM Recorded Pressure: LV, HR=80, Condition=Condition 1 (Left Ventricle) LV 100/13/25 05:11 PM 5Fr Pigtail catheter inserted over the wire [facility] scoates 05:11 PM Catheter selectively placed in left ventricle scoates 05:11 PM Bolus angiogram of left Ventricle complete: 12 ml/sec for a total of 25 mls scoates 05:11 PM Recorded Pressure: LV, Ao, HR=80, Condition=Condition 1 (Left Ventricle) LV 110/19/51, (Aorta) Ao 107/64/83 05:12 PM Lesion found in Mid RCA. Pre Stenosis: 100 Pre ADOLFO Flow: 0: No Flow/No perfusion scoates 05:12 PM Lesion found in Proximal LAD. Pre Stenosis: 40 Pre ADOLFO Flow: scoates 05:12 PM Lesion found in Mid LAD. Pre Stenosis: 30 Pre ADOLFO Flow: scoates 05:12 PM Lesion found in Proximal Circumflex. Pre Stenosis: 95 Pre ADOLFO Flow: 2: Partial Flow/Perfusion (> 1 but < 3) scoates 05:13 PM Lesion found in Mid Circumflex. Pre Stenosis: 95 Pre ADOLFO Flow: 2: Partial Flow/Perfusion (> 1 but < 3) scoates 05:13 PM Catheter removed scoates 05:13 PM PCI Status Urgent scoates 05:13 PM PCI Indication: PCI for high risk Non-STEMI or unstable angina scoates 05:13 PM 6Fr RBL 3.5 Convey guide catheter was used to cannulate the PCI vessel successfully. reused? No scoates 05:13 PM .014 [place] 190cm guide wire across target lesion- successful. reused? No scoates 05:14 PM HR=79 bpm, NIBP=87/59 mmhg, SpO2=95.0 %, Resp=14 B/min, Comment=sr 05:15 PM 2.0 mm x 20 mm Emerge Monorail balloon across target lesion- successful. reused? No scoates 05:16 PM Recorded Pressure: Ao, HR=79, Condition=Condition 1 (Aorta) Ao 91/57/72 05:16 PM Time: 17:01 Patient comfortable and pain free: Yes scoates 05:16 PM Time: 17:01LOC: 4 = Oriented but drowsy scoates 05:17 PM NIBP STAT measurement started. 05:17 PM Proximal Left Anterior Descending Coronary Artery with 40% stenosis. If graft is supplying this territory, 0 % stenosis. scoates 05:17 PM Mid/Distal Left Anterior Descending Coronary Artery and diagonal branches with 30% stenosis. If graft is supplying this area, 0 % stenosis scoates 05:17 PM Circumflex, Obtuse Marginal, Left Posterior Descending, and Left Posterolateral Coronary Arteries with 95 % stenosis. If graft is supplying this area, 0 % stenosis scoates 05:17 PM Right Coronary, Right Posterior Descending Arteries with Right Posterolateral and Acute Marginal branches with 100 % stenosis. If graft is supplying this area, 0 % stenosis scoates 05:17 PM HR=78 bpm, NIBP=97/60 mmhg, SpO2=95.0 %, Resp=14 B/min, Comment=sr 05:19 PM Time: 17:18 Aggrastat Bolus: 54 ml Intravenous Given by Torrey Nicholson RN Mccray pump scoates 05:19 PM Time: 17:19 Aggrastat 12.5mg/250ml 19.5 ml/hr Intravenous Given by Torrey Nicholson RN Mccray pump scoates 05:19 PM Balloon inflated @ 10 paulie for 20 seconds scoates 05:19 PM HR=78 bpm, NIBP=97/58 mmhg, SpO2=96.0 %, Resp=13 B/min, Comment=sr 05:20 PM Balloon inflated @ 8 paulie for 20 seconds scoates 05:20 PM Recorded Pressure: Ao, HR=78, Condition=Condition 1 (Aorta) Ao 90/66/78 05:21 PM Balloon inflated @ 10 paulie for 8 seconds scoates 05:23 PM Balloon catheter removed intact. scoates 05:24 PM HR=78 bpm, NIBP=97/58 mmhg, SpO2=96.0 %, Resp=13 B/min, Comment=sr 05:25 PM 2.25mm x 20mm Synergy drug-eluting stent across target lesion- successful Lot #[id number] scoates 05:26 PM stent removed intact, and not deployeed scoates 05:26 PM Recorded Pressure: Ao, HR=78, Condition=Condition 1 (Aorta) Ao 93/61/76 05:28 PM 2.25 mm x 15mm NC Trek Rx balloon across target lesion- successful. reused? No scoates 05:28 PM Balloon inflated @ 16 paulie for 12 seconds scoates 05:28 PM Balloon inflated @ 16 paulie for 10 seconds scoates 05:29 PM Balloon catheter removed intact. scoates 05:29 PM stent reinserted scoates 05:29 PM HR=77 bpm, NIBP=97/53 mmhg, SpO2=98.0 %, Resp=14 B/min, Comment=sr 05:30 PM Stent delivery system removed intact, not deployeed scoates 05:31 PM .014 [place] 182cm guide wire across target lesion- successful. reused? No scoates 05:33 PM Time: 17:16LOC: 4 = Oriented but drowsy scoates 05:33 PM Time: 17:16 Patient comfortable and pain free: Yes scoates 05:34 PM HR=77 bpm, NIBP=97/64 mmhg, SpO2=97.0 %, Resp=15 B/min, Comment=sr 05:35 PM attempted to reinsert stent, stent would not cross lesion scoates 05:38 PM Guide catheter removed intact. scoates 05:38 PM both guide wires removed intact scoates 05:39 PM HR=76 bpm, NIBP=98/65 mmhg, SpO2=97.0 %, Resp=19 B/min, Comment=sr 05:41 PM Procedure completed at 17:40 scoates 05:41 PM Sign out completed: Radiation Dose 1510 mGy Fluoro Time: 11.7 Isovue 370 - 200ml contrast 112 ml given by Chan Zheng MD, [facility]. Complications: NoneCardiac Rehab Consult needed: YesConfirmed administered medications: Yes scoates 05:41 PM Isovue 370 - 200ml,1 Bottle(s) used. scoates 05:41 PM Arterial sheath pulled, Vasc Band closure device used and was Successful S/N. scoates 05:41 PM 14 ml air in Vasc Band. scoates 05:42 PM Post ECG NSR scoates 05:42 PM Post Blood Pressure 98/65 scoates 05:42 PM 17:42 Post Pulses Rt Radial 1+ scoates 05:42 PM Information taught Cardiac Cath, PCI, and Vasc Band scoates 05:42 PM Education needs Procedure, Plan of Care, and Responsibilities of Patient in Care scoates 05:42 PM Learning barriers :None scoates 05:42 PM Education Methods Verbal scoates 05:43 PM Education evaluation Able to repeat information scoates 05:43 PM Site status No bleeding/hematoma - Rt Wrist as reported by Mikaela Bhakta RT at 17:43 scoates 05:43 PM Plavix, Effient or Brilinta given Yes scoates 05:43 PM Time: 17:43 Plavix 600 mg Orally Given by Torrey Nicholson RN scoates 05:44 PM Time: 17:43 Aggrastat 12.5mg/250ml ml Dc'd Given by Torrey Nicholson RN Mccray pump scoates 05:47 PM Delay to floor No scoates 05:48 PM Time: 17:33 Patient comfortable and pain free: Yes scoates 05:51 PM Patient out of room: 17:51 scoates Complications Complication None Hemodynamics Pressures Site Systolic/A Wave Diastolic/V Wave Mean AO 85 65 76 LV 100 13 25 LV 110 19 51 AO 107 64 83 AO 91 57 72 AO 90 66 78 AO 93 61 76 Post Procedure Information Blood Pressure: 98/65 mmHg Rhythm: NSR Post procedural instructions were given Closure Device Time Device Success/Fail 01/22/2017 5:41:00 PM Mechanical Compression Successful Site Checks Time Location Status Staff Sheath In? Note 05:43 PM Rt Wrist No bleeding/hematoma Mikaela Bhakta RT Pulses Time Site Pre-Procedure Post-Procedure Note Bilateral DP \\T\\ PT 2+ Bilateral radial 2+ 5:42:00 PM Rt Radial 1+ Updated by Gaby Campbell RN on 01/23/2017 3:08:13 PM electronically signed on 01/23/2017 3:09:25 PM with status of Final
--- NOTE | 2017-01-26 11:20 | Invasive Diagnostic Lab ---
Name: Afshin Simmons Date of Study: 01/22/2017 Date: 1950 Ht: 175.0 cm /68.9 in Medical Record#: [id number] Age: 66 Wt: 111. kg / 244.71 lb Account/Order#: [id number] Gender: Male BSA: 2.25 Order #: [id number] Fluoro Dose: 1510 mGy BMI: 36.24 Procedure Physician: Chan Zheng MD, [facility] Referring MD: Referring MD: Procedures Performed: LEFT HEART CATH PTCA Single Major Vessel Indications: Abnormal Test - Stress, Systolic chf Impressions: There is severe two vessel coronary artery disease. There is moderate to severe LV Dysfunction EF 35% Patient had PTCA in the Proximal and mid Circ. Recommendations: Optimal medical therapy of patient's disease. Aggressive risk factor modification. If clinically indicated, PCI of left circumflex with rotablator atherectomy Patient being referred for cardiac rehab. History/Risk Factors: CAD CHF anemia Diabetes Hypertension Procedure Access obtained in the right Radial artery by percutaneous puncture Patient had successful PTCA in the proximal and mid Circ. Complications: None Contrast: Isovue 112ml Closure Device: Mechanical Compression Hemodynamics: Pressures Site Systolic/ A Wave Diastolic/ V Wave End Diastolic/ Mean HR AO 85 65 76 80 LV 100 13 25 80 LV 110 19 51 80 AO 107 64 83 79 AO 91 57 72 79 AO 90 66 78 78 AO 93 61 76 78 LV Ventriculography Ejection Method: LV Gram Ejection Fraction: 35% Wall Motion: HARPER Anterobasal Moderate Hypokinesis Anterolateral Moderate Hypokinesis Apical: Moderate Hypokinesis Inferoapical Moderate Hypokinesis Inferobasal Severe Hypokinesis Coronary Dominance: Left Lesion Findings/Interventions * Left Main Coronary Artery The LMCA is angiographically free of disease. * Left Anterior Descending There is a 40% stenosis in the Proximal LAD. There is a 30% stenosis in the Mid LAD. * Circumflex There is a 16 mm long, 95% stenosis in the Proximal Circumflex. The lesion has a ADOLFO flow of 2 and has moderate calcification noted. An intervention was performed on the Proximal Circumflex with a final stenosis of 40%. There were no lesion complications. The final ADOLFO flow was 3. There is a 16 mm long, 95% stenosis in the Mid Circumflex. The lesion has a ADOLFO flow of 2 and has moderate calcification noted. An intervention was performed on the Mid Circumflex with a final stenosis of 60%. There were no lesion complications. The final ADOLFO flow was 3. Unable to pass stent into circumflex despite deepti wire. * Right Coronary Artery The Right Coronary Artery is small in size and nondominant There is a 100% stenosis in the Mid RCA. The lesion has a ADOLFO flow of 0. Interventional Device(s) Vessel Segment Type Name Diameter (mm) Length (mm) Proximal Circumflex Balloon Emerge Monorail 2 20 Proximal Circumflex Balloon NC Trek Rx 2.25 15 Mid Circumflex balloon Emerge Monorail 2 20 Mid Circumflex balloon NC Trek Rx 2.25 15 Updated by Gaby Campbell RN on 01/23/2017 3:07:31 PM Chan Zheng MD, FACC electronically signed on 01/26/2017 11:15:50 AM with status of Final
== END 2017-01-23 12:23 | disposition home or self-care (01) ==
LOC: 2ANU 09:09 → EMEROO 09:09 → 2ANU 14:18 → SUATTDRO 18:45
PROVIDERS: ADMIT Hospitalist; ATTEND Internal Medicine
PROC: ENDOEBX (2017-01-21 12:00)

== ENCOUNTER 2018-01-17 09:15 | Observation (INO) ==
[2018-01-17] MEDS ORDERED: 0.9 % Sodium Chloride 1,000 ML IVC ONE (09:22)
[2018-01-17 09:44] LABS: Hemoglobin 7.7 g/dL (12.9-16.9); Platelet Count 304 K/mcL (140-400)
[2018-01-17 09:46] LABS: Hematocrit 28.2 % (37.5-50.1); Lymphocytes # 0.8 K/mcL (0.6-4.6); Mean Corpuscular HGB Conc 27.3 g/dL (31.6-35.5); Mean Corpuscular Hemoglobin 18.3 pg (28.0-33.3); Mean Corpuscular Volume 67.1 fL (83.0-100.0); Mean Platelet Volume 9.7 fL (9.4-12.4); Nucleated Red Blood Cells 0.3 /100 WBC (0); Red Cell Distribution Width 24.5 % (11.5-14.5)
[2018-01-17] MEDS ORDERED: Aspirin 81 MG TAB.CHEW PO STA (09:48)
--- NOTE | 2018-01-17 09:55 | Emergency Department Note ---
Disposition Clinical Impression: Pulmonary congestion Dyspnea Qualifiers: Dyspnea type: unspecified Qualified Code(s): R06.00 - Dyspnea, unspecified Anemia Qualifiers: Anemia type: iron deficiency Iron deficiency anemia type: chronic blood loss Qualified Code(s): D50.0 - Iron deficiency anemia secondary to blood loss ( chronic) Disposition: Admitted As Inpatient Condition: Good Time of Disposition: 12:51 General Adult HPI - General Chief complaint: ED General Medical Stated complaint: Low iron, weakness, JORJE Time Seen by Provider: 01/17/18 09:21 Source: patient, family Limitations: no limitations Nursing Notes Reviewed: Yes Vital Signs Reviewed: Yes - History of Present Illness HPI Narrative: 67-year-old male history of CAD presents emergency department for evaluation of weakness and shortness of breath. States recently over the past several months his been experiencing intermittent difficulty breathing. At this time he denies any difficulty breathing or chest pain. Denies any recent fevers or illness. Denies productive cough. He reports a history of iron deficiency anemia. He is currently on supplementation but thinks that his iron might be low. Denies any bloody stool, black tarry stool, hemoptysis or hematemesis. He recently had a colonoscopy performed December that showed a polyp but did not reveal any active bleeding. He also reports proximally a year ago he had similar symptoms that require hospitalization and stent placement. Pain Scale: 0 - Related Data Home Medications Medication Instructions Recorded Confirmed Furosemide [Lasix] 40 mg PO BID 01/19/17 01/17/18 Gabapentin [Neurontin] 300 mg PO HS 01/19/17 01/17/18 Glimepiride [Amaryl] 4 mg PO DAILY 01/19/17 01/17/18 Insulin Degludec [Tresiba 70 unit SQ DAILY 01/19/17 01/17/18 Flextouch U-200] Losartan Potassium [Cozaar] 100 mg PO DAILY 01/19/17 01/17/18 Metformin HCl [Glucophage] 1,000 mg PO BID 01/19/17 01/17/18 Trazodone HCl 100 mg PO HS 01/19/17 01/17/18 Iron Polysaccharide Complex [Pro 180 mg PO DAILY 01/17/18 01/17/18 Fe] Liraglutide [Victoza 2-Haider] 1.2 mg SQ DAILY 06/03/18 06/03/18 Previous Rx's Medication Instructions Recorded Aspirin Enteric Coated [Aspirin EC] 81 mg PO DAILY #30 tablet. 01/23/17 Carvedilol 12.5 mg PO BID #60 tablet 01/23/17 Pantoprazole Sodium 40 mg PO BID #60 tablet. 01/23/17 Rosuvastatin [Crestor] 20 mg PO DAILY #30 tablet 01/23/17 Sucralfate [Carafate] 1 gm PO 0730,1630 #60 tablet 01/23/17 Allergies Allergy/AdvReac Type Severity Reaction Status Date / Time No Known Allergies Allergy Verified 01/17/18 13:13 All systems ED: reviewed and negative except as stated. Review of Systems: As Per HPI Constitutional: Reports: weakness. Denies: fever, chills ENT ED: Denies: congestion Cardiovascular: Denies: chest pain Respiratory: Reports: dyspnea. Denies: cough Gastrointestinal: Denies: abdominal pain, nausea, vomiting, melena, hematochezia Genitourinary: Denies: urgency, dysuria Musculoskeletal: Denies: back pain Integumentary: Denies: rash, abrasion Neurological: Denies: headache Endocrine: Reports: fatigue Past Medical History - Past Medical History Attestation: Yes The following information was validated with the patient. Source: patient Medical history: Reports: coronary artery disease, diabetes, hyperlipidemia, hypertension, myocardial infarction, other Surgical history: Reports: angioplasty/stent Psychiatric history: Reports: depression - Social History Smoking Status: Former smoker Smokeless Tobacco Status: No Alcohol use: Reports: none Drug use: Reports: none Physical Exam - General Limitations: no limitations General appearance: alert, in no apparent distress Course Course Narrative: Patient presents for generalized malaise. He is afebrile. He appears in no acute distress. His vital signs are otherwise stable. He appears in no respiratory distress. His lungs are clear auscultation bilaterally. Heart is regular rate and rhythm. Abdomen is soft nontender nondistended. He does have some pitting edema till lower extremities with an open wound with redness but no signs of cellulitis. Given his symptoms and prior history of cardiac workup initiated including a type and screen given history of anemia. Initial EKG was performed that read atrial fibrillation however compared to prior it appears more sinus arrhythmia. Will further review of his medical records given his history of iron deficiency and prior endoscopies. - Reevaluation(s) Reevaluation #1: History PE EKG showed similar findings and after discussing with cardiology they agree this is less likely to be atrial fibrillation and more of a sinus rhythm with first-degree AV block. Will not treat as atrial fibrillation. His anemia appears worse than his baseline at 7.7. His MCV was low consistent with his microcytic anemia. We reviewed his colonoscopy which did confirm a normal colonoscopy without any active bleeding. A polyp was removed.Given his malaise BNP and D dimer were added. His BNP was slightly elevated at 327. A CT of the chest was also performed as D dimer was significantly elevated 774. It was negative for pulmonary embolism but did reveal some sinus congestion. Given his recent labs in CT findings patient would benefit admission for further evaluation and management. If he did require fluid resuscitation blood products may be the likely choice despite that his hemoglobin is at 7.7. I discussed in length with the patient the risks and benefits of this and we will defer any additional blood transfusions to the hospitalist pain. He states typically his hemoglobin is around 8 and now that it has dropped this may be the reason for his generalized malaise. Patients in agreement with plan for admission and further monitoring. Impression is anemia, dyspnea and pulmonary congestion. - Consultations Consultation #1: Consulted with on-call senior net web developer Dr. Pool, he agrees with EKG interpretation of sinus rhythm with first-degree AV block and occasional PAC. Does not agree with interpretation of the atrial fibrillation. Compared to his prior EKG these findings are consistent with sinus rhythm. Time: 10:27 Consultation #2: Spoke with on-call hospitalist Dr. Barboza for admission of anemia and weakness. Patient will be seen and evaluated by the hospital is here in the emergency department for his anemia and weakness. Time: 12:01 Consultation #3: The hospital is has come down to evaluate the patient, requests to stop the IV fluids. Lungs remain clear to auscultation. Chest x-ray does not reveal any pulmonary edema but CT scan did reveal some congestion. Requested to stop the IV fluids. He will add antibiotics for possible lower extremity cellulitis which on my exam appeared more to be irritation. Time: 12:51 Vital Signs Temperature 97.6 F 01/17/18 09:18 Pulse Rate 109 01/17/18 09:18 Respiratory Rate 18 01/17/18 09:18 Blood Pressure 149/79 01/17/18 09:18 O2 Sat by Pulse Oximetry 97 01/17/18 09:18 Temperature 98.1 F 01/17/18 19:16 Pulse Rate 93 01/17/18 19:16 Respiratory Rate 18 01/17/18 19:16 Blood Pressure 123/64 01/17/18 19:16 O2 Sat by Pulse Oximetry 96 01/17/18 19:16 Oxygen Delivery Oxygen Delivery Room Air Medical Decision Making - MDM Narrative Medical decision making narrative: Patient was discussed with my attending physician who agrees with ED management and final disposition. They independently evaluated the patient. Please refer to their attestation to this encounter for additional information. This note was generated by [employer] voice recognition software and as a result grammatical or spelling errors may occur using this program. - Medical Records Medical records reviewed: Yes I reviewed the patient's medical records. - Lab Data Lab results reviewed: Yes I reviewed the patient's lab results. Result diagrams: 01/17/18 09:22 01/17/18 09:22 Lab Results 01/17/18 01/17/18 01/17/18 Range/Units 09:22 09:22 09:22 WBC 7.5 (4.3-11.1) K/mcL RBC 4.20 (4.19-5.50) M/mcL Hgb 7.7 L (12.9-16.9) g/dL Hct 28.2 L (37.5-50.1) % MCV 67.1 L (83.0-100.0) fL MCH 18.3 L (28.0-33.3) pg MCHC 27.3 L (31.6-35.5) g/dL RDW 24.5 H (11.5-14.5) % Plt Count 304 (140-400) K/mcL MPV 9.7 (9.4-12.4) fL Seg Neutrophils % 84.0 % Lymphocytes % 10.0 % Monocytes % 2.0 % Eosinophils % 4.0 % Neutrophils # 6.3 (1.6-8.9) K/mcL Lymphocytes # 0.8 (0.6-4.6) K/mcL Monocytes # 0.2 (0.0-1.3) K/mcL Eosinophils # 0.3 (0.0-0.6) K/mcL Nucleated RBCs/100 WBC 0.3 H (0) /100 WBC Platelet Estimate Normal (Normal) Hypochromasia Present A (Not Present) Poikilocytosis 1+ A (Not Present) Anisocytosis 1+ A (Not Present) PT 15.5 H (9.4-12.1) Seconds INR 1.4 APTT 33.3 (26.0-36.0) Seconds D-Dimer 774 H (0-500) ng/mLFEU Sodium 133 L (136-145) mEq/L Potassium 3.7 (3.5-5.1) mEq/L Chloride 98 (98-107) mEq/L Carbon Dioxide 26 (23-29) mEq/L BUN 15 (8-23) mg/dL Creatinine 0.98 (0.70-1.30) mg/dL Est GFR ( Amer) > 60 (> 60) Est GFR (Non-Af Amer) > 60 (> 60) BUN/Creatinine Ratio 15 (6-26) Glucose 250 H (70-105) mg/dL Calculated Osmolality 285 (280-300) Calcium 9.3 (8.6-10.3) mg/dL Troponin I < 0.03 (< 0.04) ng/mL B-Natriuretic Peptide (Less than 100) pg/mL Blood Type Antibody Screen 01/17/18 01/17/18 Range/Units 09:22 10:09 WBC (4.3-11.1) K/mcL RBC (4.19-5.50) M/mcL Hgb (12.9-16.9) g/dL Hct (37.5-50.1) % MCV (83.0-100.0) fL MCH (28.0-33.3) pg MCHC (31.6-35.5) g/dL RDW (11.5-14.5) % Plt Count (140-400) K/mcL MPV (9.4-12.4) fL Seg Neutrophils % % Lymphocytes % % Monocytes % % Eosinophils % % Neutrophils # (1.6-8.9) K/mcL Lymphocytes # (0.6-4.6) K/mcL Monocytes # (0.0-1.3) K/mcL Eosinophils # (0.0-0.6) K/mcL Nucleated RBCs/100 WBC (0) /100 WBC Platelet Estimate (Normal) Hypochromasia (Not Present) Poikilocytosis (Not Present) Anisocytosis (Not Present) PT (9.4-12.1) Seconds INR APTT (26.0-36.0) Seconds D-Dimer (0-500) ng/mLFEU Sodium (136-145) mEq/L Potassium (3.5-5.1) mEq/L Chloride (98-107) mEq/L Carbon Dioxide (23-29) mEq/L BUN (8-23) mg/dL Creatinine (0.70-1.30) mg/dL Est GFR ( Amer) (> 60) Est GFR (Non-Af Amer) (> 60) BUN/Creatinine Ratio (6-26) Glucose (70-105) mg/dL Calculated Osmolality (280-300) Calcium (8.6-10.3) mg/dL Troponin I (< 0.04) ng/mL B-Natriuretic Peptide 327 H (Less than 100) pg/mL Blood Type A POSITIVE Antibody Screen NEGATIVE - Radiology Data Radiology results reviewed: Yes I reviewed the patient's radiology results. Chest X-Ray 01/17/18 09:22 IMPRESSION: No acute cardiopulmonary process. D/ / Kellie Miranda MD / Kellie Miranda MD Interpreting Provider: Kellie Miranda MD Chest CTA 01/17/18 10:30 IMPRESSION: No CT evidence pulmonary embolism. Cardiomegaly mild pulmonary edema. Mild mediastinal and hilar adenopathy, likely reactive. A short-term follow-up CT in 3 months could be considered. D/ / Cheryl Rivera Cha, MD / Cheryl Rivera Cha, MD Interpreting Provider: Cheryl Rivera Cha, MD - EKG Data EKG #1 EKG attestation: Yes I reviewed and interpreted this EKG. EKG results narrative: EKG performed at 932 reported as atrial fibrillation but there appears to P waves likely consistent with normal sinus and occasional premature atrial complex, WI interval appears slightly prolonged, no ST elevation or depression, Q waves seen in the 3. Compared to old EKG performed 01/19/2017 shows similar consistent findings of sinus rhythm with PAC with similar Q waves. No acute ischemic changes. Attestation Statement - Attestation Attestation: I, Sebastián Mooney DO, examined this patient [id number] and my medical decision-making was reviewed with Neeraj Brown DO , Resident Physician. I agree with the documented findings, disposition and treatment plan as described except to the extent set forth below. Please see my progress notes for details.
[2018-01-17 09:59] LABS: INR 1.4; Prothrombin Time 15.5 Seconds (9.4-12.1)
[2018-01-17 10:02] LABS: Activated Partial Thrombo Time 33.3 Seconds (26.0-36.0); BUN/Creatinine Ratio 15 (6-26); Blood Urea Nitrogen 15 mg/dL (8-23); Calcium 9.3 mg/dL (8.6-10.3); Carbon Dioxide 26 mEq/L (23-29); Chloride 98 mEq/L (98-107); Glucose 250 mg/dL (70-105); Osmolality,Calculated 285 (280-300); Potassium 3.7 mEq/L (3.5-5.1); Sodium 133 mEq/L (136-145); eGFR For African Americans > 60 (> 60); eGFR For Non-African Americans > 60 (> 60)
[2018-01-17 10:03] LABS: Troponin I < 0.03 ng/mL (< 0.04)
--- NOTE | 2018-01-17 10:09 | Emergency Department Note ---
Disposition Clinical Impression: Dyspnea, Anemia, Pulmonary congestion Disposition: Admitted As Inpatient Condition: Fair Time of Disposition: 12:50 General Adult HPI - General Chief complaint: ED General Medical Stated complaint: Low iron, weakness, JORJE Time Seen by Provider: 01/17/18 09:21 Source: patient, family Limitations: no limitations - History of Present Illness Pain Scale: 0 - Related Data Home Medications Medication Instructions Recorded Confirmed Duloxetine HCl [Cymbalta] 60 mg PO DAILY 01/19/17 02/13/17 Ferrous Sulfate [Iron] 325 mg PO BID 01/19/17 02/13/17 Fluticasone Propionate Nasal 1 spray NS DAILY 01/19/17 02/13/17 [Flonase] Furosemide [Lasix] 40 mg PO BID 01/19/17 02/13/17 Gabapentin [Neurontin] 300 mg PO BID 01/19/17 02/13/17 Glimepiride [Amaryl] 4 mg PO DAILY 01/19/17 02/13/17 Insulin ASPART [Novolog Flexpen] 20 unit SQ TID 01/19/17 02/13/17 Insulin Degludec [Tresiba 60 unit SQ DAILY 01/19/17 02/13/17 Flextouch U-200] Losartan Potassium [Cozaar] 100 mg PO DAILY 01/19/17 02/13/17 Metformin HCl [Glucophage] 1,000 mg PO BID 01/19/17 02/13/17 Nortriptyline HCl 50 mg PO HS 01/19/17 02/13/17 Trazodone HCl 100 mg PO HS 01/19/17 02/13/17 Previous Rx's Medication Instructions Recorded Aspirin Enteric Coated [Aspirin EC] 81 mg PO DAILY #30 tablet. 01/23/17 Carvedilol 12.5 mg PO BID #60 tablet 01/23/17 Clopidogrel [Plavix] 75 mg PO DAILY #60 tablet 01/23/17 Pantoprazole Sodium 40 mg PO BID #60 tablet. 01/23/17 Rosuvastatin [Crestor] 20 mg PO DAILY #30 tablet 01/23/17 Sucralfate [Carafate] 1 gm PO 0730,1630 #60 tablet 01/23/17 Allergies Allergy/AdvReac Type Severity Reaction Status Date / Time No Known Allergies Allergy Verified 01/19/17 11:22 Past Medical History - Past Medical History Medical history: Reports: coronary artery disease, diabetes, hyperlipidemia, hypertension, myocardial infarction, other Surgical history: Reports: angioplasty/stent Psychiatric history: Reports: depression - Social History Smoking Status: Former smoker Smokeless Tobacco Status: No Alcohol use: Reports: none Drug use: Reports: none Physical Exam - General Limitations: no limitations General appearance: alert, in no apparent distress Course Vital Signs Temperature 97.6 F 01/17/18 09:18 Pulse Rate 109 01/17/18 09:18 Respiratory Rate 18 01/17/18 09:18 Blood Pressure 149/79 01/17/18 09:18 O2 Sat by Pulse Oximetry 97 01/17/18 09:18 Temperature 97.6 F 01/17/18 09:18 Pulse Rate 92 01/17/18 11:22 Respiratory Rate 20 01/17/18 11:22 Blood Pressure 137/79 01/17/18 11:22 O2 Sat by Pulse Oximetry 99 01/17/18 11:22 Oxygen Delivery Oxygen Delivery Room Air Medical Decision Making - Lab Data Result diagrams: 01/17/18 09:22 01/17/18 09:22 Lab Results 01/17/18 01/17/18 01/17/18 Range/Units 09:22 09:22 09:22 WBC 7.5 (4.3-11.1) K/mcL RBC 4.20 (4.19-5.50) M/mcL Hgb 7.7 L (12.9-16.9) g/dL Hct 28.2 L (37.5-50.1) % MCV 67.1 L (83.0-100.0) fL MCH 18.3 L (28.0-33.3) pg MCHC 27.3 L (31.6-35.5) g/dL RDW 24.5 H (11.5-14.5) % Plt Count 304 (140-400) K/mcL MPV 9.7 (9.4-12.4) fL Seg Neutrophils % 84.0 % Lymphocytes % 10.0 % Monocytes % 2.0 % Eosinophils % 4.0 % Neutrophils # 6.3 (1.6-8.9) K/mcL Lymphocytes # 0.8 (0.6-4.6) K/mcL Monocytes # 0.2 (0.0-1.3) K/mcL Eosinophils # 0.3 (0.0-0.6) K/mcL Nucleated RBCs/100 WBC 0.3 H (0) /100 WBC Platelet Estimate Normal (Normal) Hypochromasia Present A (Not Present) Poikilocytosis 1+ A (Not Present) Anisocytosis 1+ A (Not Present) PT 15.5 H (9.4-12.1) Seconds INR 1.4 APTT 33.3 (26.0-36.0) Seconds D-Dimer 774 H (0-500) ng/mLFEU Sodium 133 L (136-145) mEq/L Potassium 3.7 (3.5-5.1) mEq/L Chloride 98 (98-107) mEq/L Carbon Dioxide 26 (23-29) mEq/L BUN 15 (8-23) mg/dL Creatinine 0.98 (0.70-1.30) mg/dL Est GFR ( Amer) > 60 (> 60) Est GFR (Non-Af Amer) > 60 (> 60) BUN/Creatinine Ratio 15 (6-26) Glucose 250 H (70-105) mg/dL Calculated Osmolality 285 (280-300) Calcium 9.3 (8.6-10.3) mg/dL Troponin I < 0.03 (< 0.04) ng/mL B-Natriuretic Peptide (Less than 100) pg/mL Blood Type Antibody Screen 01/17/18 01/17/18 Range/Units 09:22 10:09 WBC (4.3-11.1) K/mcL RBC (4.19-5.50) M/mcL Hgb (12.9-16.9) g/dL Hct (37.5-50.1) % MCV (83.0-100.0) fL MCH (28.0-33.3) pg MCHC (31.6-35.5) g/dL RDW (11.5-14.5) % Plt Count (140-400) K/mcL MPV (9.4-12.4) fL Seg Neutrophils % % Lymphocytes % % Monocytes % % Eosinophils % % Neutrophils # (1.6-8.9) K/mcL Lymphocytes # (0.6-4.6) K/mcL Monocytes # (0.0-1.3) K/mcL Eosinophils # (0.0-0.6) K/mcL Nucleated RBCs/100 WBC (0) /100 WBC Platelet Estimate (Normal) Hypochromasia (Not Present) Poikilocytosis (Not Present) Anisocytosis (Not Present) PT (9.4-12.1) Seconds INR APTT (26.0-36.0) Seconds D-Dimer (0-500) ng/mLFEU Sodium (136-145) mEq/L Potassium (3.5-5.1) mEq/L Chloride (98-107) mEq/L Carbon Dioxide (23-29) mEq/L BUN (8-23) mg/dL Creatinine (0.70-1.30) mg/dL Est GFR ( Amer) (> 60) Est GFR (Non-Af Amer) (> 60) BUN/Creatinine Ratio (6-26) Glucose (70-105) mg/dL Calculated Osmolality (280-300) Calcium (8.6-10.3) mg/dL Troponin I (< 0.04) ng/mL B-Natriuretic Peptide 327 H (Less than 100) pg/mL Blood Type A POSITIVE Antibody Screen NEGATIVE Attestation Statement - Attestation Attestation: I, Sebastián Mooney DO, examined this patient [id number] and my medical decision-making was reviewed with Neeraj Brown DO , Resident Physician. I agree with the documented findings, disposition and treatment plan as described except to the extent set forth below. Please see my progress notes for details. 67-year-old male presents to the emergency room for evaluation of generalized malaise. He has a history of iron deficiency anemia. Is currently on iron supplementation. Approximately 1 year ago he had similar symptoms about a minute the hospital and ended up requiring him getting a catheterization and stent placed. Patient denies any significant changes or issues here today. He has no chest pain or shortness of breath denies headache vision changes nausea vomiting or diarrhea. Currently denying fevers or chills. No recent trauma or injuries. On physical exam the patient is alert and oriented speaking in full sentences. Vital signs are stable patient is afebrile. Trachea is midline oropharynx is patent heart appears to have irregularity based on the rhythm strip and then EKG but appears to be a sinus arrhythmia after looking at the EKG in detail. Repeat EKG to be collected 30 minutes after arrival here considering the patient's history of similar issues requiring catheterization. Patient has clear lungs to auscultation this time abdomen is soft nontender nondistended no guarding no rigidity no peritoneal-like symptoms. Patient has pitting edema in the lower extremities with some open wounds to the right lower extremity just have redness around the wound areas but no signs of skin breakdown deterioration or cellulitic-like presentation this time. Patient will be given a full aspirin here in the emergency room and review all labs. Type and screen will be added on along with CBC chemistry troponin and BNP. Chest x-ray is still pending at this time. Admission process will most likely be recommended once the patient is full workup completed dependent on the imaging and lab results. Patient is otherwise clinically stable at this point and disposition to be determined. See detailed documentation of the physical exam, medical intervention, medical decision-making and disposition in the resident physician's note. No critical care provider the patient's treatment course at this time. 1000 Repeat EKG shows similar rhythm with no acute signs of third-degree heart block or second-degree type II heart block. There is stable NE interval with intermittent early atrial contractions. Arrhythmia is noted appears to be sinus arrhythmia. This will be reviewed with the medical record coder for confirmation. 1055 Patient's EKG reviewed with the on-call medical record coder Dr. Pool. Agreed this is sinus rhythm with first-degree heart block and intermittent PACs. Patient does have an elevated BNP today is slightly decreased from the previous one year ago. Patient's anemia is worse than previous. Patient will be admitted for symptomatic anemia. No transfusion will be provided here this time. Patient has had recent echo and endoscopy completed did not show any acute pathology. Admission process to be completed at this point. 1245 Patient was evaluated by the hospitalist at the bedside. He requested that the fluids be stopped at this point. He is an add-on antibiotics for concern of cellulitis in the right lower extremity. Patient otherwise is stable. CT of the chest does not show any acute signs of pulmonary emboli but vascular congestion is noted. Patient will be symptomatically treated here in the hospital for definitive management. No other concerns or issues noted this time.
[2018-01-17 10:21] LABS: Anisocytosis 1+ (Not Present); Eosinophils # 0.3 K/mcL (0.0-0.6); Hypochromasia Present (Not Present); Monocytes # 0.2 K/mcL (0.0-1.3); Neutrophils # 6.3 K/mcL (1.6-8.9)
[2018-01-17 10:22] LABS: Platelet Estimate Normal (Normal); Poikilocytosis 1+ (Not Present)
[2018-01-17] MEDS ORDERED: Isovue-370 500 ML INFUS..BTL IV ONE (10:30)
[2018-01-17] MEDS ORDERED: 0.9 % Sodium Chloride 1,000 ML IVC SCH (12:00)
[2018-01-17] MEDS ORDERED: *HR* Promethazine 25 MG/ML VIAL IVP PRN (12:27)
[2018-01-17] MEDS ORDERED: Acetaminophen 325 MG TABLET PO PRN (12:27)
[2018-01-17] MEDS ORDERED: *HR* HYDROcodone/Acet 5/325 mg TABLET PO PRN (12:27)
[2018-01-17] MEDS ORDERED: Naloxone 0.4 MG/ML INJ IVP PRN (12:27)
[2018-01-17] MEDS ORDERED: Ondansetron 4 MG/2 ML VIAL IVP PRN (12:27)
[2018-01-17] MEDS ORDERED: Dextrose Gel 15 GM/37.5 ML TUBE PO PRN ×2 (12:29)
[2018-01-17] MEDS ORDERED: D5% in Water 1,000 ML IVC PRN (12:29)
[2018-01-17] MEDS ORDERED: *HR* Dextrose 50 % in Water (Syg) 50 ML SYRINGE IVP PRN (12:29)
--- NOTE | 2018-01-17 14:36 | Internal Med History&Physical ---
Date of Encounter: 01/17/18 Time of Encounter: 13:00 Internal Medicine - H&P: HPI Chief complaint: SOB, Fatigue Admitted From: Emergency Dept Plans for Post Hospital Care: Home History of present illness: Mr. Fitch is a 67 year old male with a known past medical history of hypertension, diabetes type II, chronic diastolic congestive heart failure, CAD with status post cardiac stents, chronic iron deficiency, chronic anemia due to G.I. occult bleeding who had a endoscopy and colonoscopy on 12/17/[address] Lowery found to have normal esophagus and cecal polyp pt presented to ER with fatigue and generalized weakness. Here in the emergency room his hemoglobin came back at 7.7, usually his baseline runs around 8.6. He also complained about it erythema in his right lower extremity associated with some scratch gu Past Med Surg Social Fam HX - Past Medical History Medical history: coronary artery disease, diabetes, hyperlipidemia, hypertension , myocardial infarction, other Additional medical history: stomach ulcer Psychiatric history: depression - Past Surgical History Surgical History: angioplasty/stent - Social History Smoking Status: Former smoker Smokeless Tobacco Status: No Alcohol use: none Drug use: none - Family History Mother Living Status: Hx Family Cancer: Yes Internal Medicine - H&P: Meds Furosemide [Lasix] 40 mg PO BID 01/19/17 [History] Gabapentin [Neurontin] 300 mg PO HS 01/19/17 [History] Glimepiride [Amaryl] 4 mg PO DAILY 01/19/17 [History] Insulin Degludec [Tresiba Flextouch U-200] 70 unit SQ DAILY 01/19/17 [History] Losartan Potassium [Cozaar] 100 mg PO DAILY 01/19/17 [History] Metformin HCl [Glucophage] 1,000 mg PO BID 01/19/17 [History] Trazodone HCl 100 mg PO HS 01/19/17 [History] Aspirin Enteric Coated [Aspirin EC] 81 mg PO DAILY #30 tablet. 01/23/17 [Rx] Carvedilol 12.5 mg PO BID #60 tablet 01/23/17 [Rx] Pantoprazole Sodium 40 mg PO BID #60 tablet. 01/23/17 [Rx] Rosuvastatin [Crestor] 20 mg PO DAILY #30 tablet 01/23/17 [Rx] Sucralfate [Carafate] 1 gm PO 0730,1630 #60 tablet 01/23/17 [Rx] Iron Polysaccharide Complex [Pro Fe] 180 mg PO DAILY 01/17/18 [History] Liraglutide [Victoza 2-Haider] 1.2 mg SQ DAILY 01/17/18 [History] 3 Allergy/AdvReac Type Severity Reaction Status Date / Time No Known Allergies Allergy Verified 01/17/18 13:13 All Systems PM: A 10-system review of systems was performed and is negative for pertinent findings except as documented above in the HPI. Review of systems: All the systems are reviewed everything is benign except the systems and symptoms I mentioned in the history of present illness - Constitutional Vitals: Temp Pulse Resp BP Pulse Ox 97.7 F 91 17 113/71 97 01/17/18 13:51 01/17/18 13:51 01/17/18 13:51 01/17/18 13:51 01/17/18 13:51 General appearance: Present: cooperative, A&O X 3, no acute distress, answers questions appropriately Exam: Looks pale and weak - Head Head exam: Present: atraumatic, normal inspection - Neck Neck exam general surgery: Present: supple - Respiratory Respiratory exam: Present: decreased breath sounds. Absent: rales, respiratory distress, rhonchi, wheezes - Cardiovascular Cardiovascular exam: Present: RRR, +S1, +S2. Absent: tachycardia - GI/Abdominal GI/Abdominal exam: Present: normal bowel sounds, soft. Absent: rebound, rigid, tenderness - Extremities Exam Extremities exam: Present: pedal edema (Trace), tenderness (Mild). Absent: calf tenderness Additional comments: Multiple scratch gu and skin breaks on both legs especially right lower leg noticed with erythema around those skin breaks - Back Exam Back exam: Absent: CVA tenderness (L), CVA tenderness (R) - Neurological Exam Neurological exam: Present: alert, oriented X3 - Psychiatric Psychiatric exam: Present: normal affect, normal mood - Skin Skin exam: Present: rash Internal Med - H&P Results - Labs CBC & Chem 7: 01/17/18 09:22 01/17/18 09:22 - Assessment and plan (1) Anemia Current Visit: Yes Status: Chronic Assessment and plan: Place the patient into Tele for observation he does have mild symptomatic anemia however his hemoglobin stays close to his baseline no need of the PRBC transfusion reviewed his endoscopy/colonoscopy reports from 12/17/17 he does get benefit with Endocapsular Study will talk to Anne Marie in the morning and arrange for outpatient study Qualifiers: Anemia type: iron deficiency Iron deficiency anemia type: chronic blood loss Qualified Code(s): D50.0 - Iron deficiency anemia secondary to blood loss (chronic) (2) Cellulitis of right leg Current Visit: Yes Status: Acute Assessment and plan: Counseled to avoid scratching started him on Ancef IV antibiotic (3) Diastolic CHF, chronic Current Visit: Yes Status: Acute Assessment and plan: Not in exacerbation reviewed Echo from 07/2017 showed preserved LVEF since his BNP elevated as well as showed some mild congestion in the lungs, will repeat another echo for now continue oral Lasix 40 b.i.d. resumed all other home medications (4) Iron deficiency anemia due to chronic blood loss Current Visit: Yes Status: Acute Assessment and plan: Reviewed his iron levels from January 2017 severely low started him on IV Venofer daily continue oral iron supplements also ordered stat Iron studies (5) Guaiac positive stools Current Visit: No Status: Acute Assessment and plan: Need outpatient workup (6) CAD (coronary artery disease) Current Visit: No Status: Chronic Assessment and plan: Had stents placed almost year ago recommended to continue holding Plavix and stop completely he can regime aspirin now Qualifiers: Coronary Disease-Associated Artery/Lesion type: [place] artery [place] vs. transplanted heart: [place] heart Associated angina: without angina Qualified Code(s): I25.10 - Atherosclerotic heart disease of [place] coronary artery without angina pectoris (7) Diabetes mellitus Current Visit: No Status: Chronic Assessment and plan: On insulin sliding scale Qualifiers: Diabetes mellitus type: type 2 Diabetes mellitus penitentiary insulin use: with penitentiary use Diabetes mellitus complication status: with ophthalmic complications Diabetes mellitus complication detail: with diabetic retinopathy Diabetic retinopathy severity: with unspecified retinopathy severity Diabetes mellitus macular edema: macular edema presence unspecified Laterality: unspecified laterality Qualified Code(s): E11.319 - Type 2 diabetes mellitus with unspecified diabetic retinopathy without macular edema; Z79.4 - terminal manager (current) use of insulin (8) Hypertension Current Visit: No Status: Chronic Assessment and plan: Resumed home medications Qualifiers: Hypertension type: essential hypertension Qualified Code(s): I10 - Essential (primary) hypertension - Time Spent With Patient Total time spent is greater than 50% in coordination of care (as documented) at patient's floor/unit and/or counseling patient:
[2018-01-17 15:09] LABS: % Iron Saturation 4 % (20-55); Iron 20 mcg/dL (65-175); Transferrin 347 mg/dL (203-362)
[2018-01-17] MEDS: Sucralfate 1 GM TABLET PO SCH (16:17)
[2018-01-17] MEDS: ceFAZolin 1,000 MG in Water for inj. (sterile) 20 ML 10 ML IVP SCH ×2 (16:18→23:52)
[2018-01-17] MEDS: Insulin LISPRO 300 UNITS/3 ML VIAL SQ SCH (16:47)
[2018-01-17] MEDS ORDERED: traZODone 50 MG TABLET PO SCH (21:00)
[2018-01-17] MEDS ORDERED: Insulin LISPRO 300 UNITS/3 ML VIAL SQ SCH (21:00)
[2018-01-17] MEDS: Gabapentin 300 MG CAPSULE PO SCH (22:09)
[2018-01-17] MEDS: Furosemide 40 MG TABLET PO SCH (22:10)
[2018-01-17] MEDS: Insulin DETEMIR 100 UNIT/ML X5UNITS SQ SCH (22:10)
[2018-01-18 07:20] LABS: Immature Granulocytes % 0.2 % (0-4)
[2018-01-18 07:22] LABS: Basophils # 0.1 K/mcL (0.0-0.2); Basophils % 0.7 %; Eosinophils # 0.3 K/mcL (0.0-0.6); Eosinophils % 3.7 %; Hemoglobin 7.8 g/dL (12.9-16.9); Lymphocytes # 1.3 K/mcL (0.6-4.6); Lymphocytes % 13.8 %; Mean Corpuscular HGB Conc 26.9 g/dL (31.6-35.5); Mean Corpuscular Hemoglobin 18.6 pg (28.0-33.3); Mean Platelet Volume 9.9 fL (9.4-12.4); Monocytes # 0.8 K/mcL (0.0-1.3); Monocytes % 8.3 %; Neutrophils # 6.7 K/mcL (1.6-8.9); Nucleated Red Blood Cells 0.2 /100 WBC (0); Platelet Count 343 K/mcL (140-400); Red Cell Distribution Width 24.8 % (11.5-14.5); Segmented Neutrophils % 73.3 %
[2018-01-18 07:24] VITALS: BP 130/87
[2018-01-18 07:36] LABS: BUN/Creatinine Ratio 14 (6-26); Blood Urea Nitrogen 14 mg/dL (8-23); Calcium 9.1 mg/dL (8.6-10.3); Carbon Dioxide 27 mEq/L (23-29); Chloride 100 mEq/L (98-107); Chol/HDL Ratio 3.9 (0-4.9); Cholesterol 94 mg/dL (< 200); Glucose 88 mg/dL (70-105); HDL Cholesterol 24 mg/dL (40-59); LDL Cholesterol,Calculated 54 mg/dL (0-99); Osmolality,Calculated 284 (280-300); Potassium 3.1 mEq/L (3.5-5.1); Sodium 137 mEq/L (136-145); Triglycerides 78 mg/dL (< 150); eGFR For African Americans > 60 (> 60); eGFR For Non-African Americans > 60 (> 60)
[2018-01-18 08:19] LABS: Anisocytosis 2+ (Not Present); Hypochromasia Present (Not Present); Polychromasia 1+ (Not Present)
[2018-01-18 08:21] LABS: Microcytosis Present (Not Present)
[2018-01-18 08:22] LABS: Platelet Estimate Normal (Normal)
[2018-01-18] MEDS: Gabapentin 300 MG CAPSULE PO SCH (08:24)
[2018-01-18] MEDS: Sucralfate 1 GM TABLET PO SCH (08:24)
[2018-01-18] MEDS: Furosemide 40 MG TABLET PO SCH (08:25)
[2018-01-18] MEDS: ceFAZolin 1,000 MG in Water for inj. (sterile) 20 ML 10 ML IVP SCH (08:27)
[2018-01-18] MEDS: Insulin LISPRO 300 UNITS/3 ML VIAL SQ SCH (08:28)
[2018-01-18] MEDS: Insulin DETEMIR 100 UNIT/ML X5UNITS SQ SCH (08:37)
[2018-01-18] MEDS ORDERED: Fluticasone Propionate Nasal 50 MCG/SPRAY BOTTLE NS SCH (09:00)
--- NOTE | 2018-01-18 10:06 | Discharge Summary ---
- NOTES TO OUTPATIENT PROVIDER Notes to Outpatient Provider: f/u with PCP in one week. f/u with GI Dr. Chandler in one week..You do need endocapsular study for your occult bleding. Please take Iron tablet twice a day Orders not resulted at time of discharge: Pending orders 01/17/18 14:30 EV echocardiogram Routine Date of Encounter: 01/18/18 Time of Encounter: 10:02 - Discharge Diagnosis (1) Anemia Priority: Primary Status: Chronic Qualifiers: Anemia type: iron deficiency Iron deficiency anemia type: chronic blood loss Qualified Code(s): D50.0 - Iron deficiency anemia secondary to blood loss (chronic) (2) Cellulitis of right leg Priority: Primary Status: Acute (3) Diastolic CHF, chronic Priority: Secondary Status: Acute (4) Iron deficiency anemia due to chronic blood loss Priority: Secondary Status: Acute (5) Guaiac positive stools Priority: Secondary Status: Acute (6) CAD (coronary artery disease) Priority: Secondary Status: Chronic Qualifiers: Coronary Disease-Associated Artery/Lesion type: [place] artery [place] vs. transplanted heart: [place] heart Associated angina: without angina Qualified Code(s): I25.10 - Atherosclerotic heart disease of [place] coronary artery without angina pectoris (7) Diabetes mellitus Priority: Secondary Status: Chronic Qualifiers: Diabetes mellitus type: type 2 Diabetes mellitus superintendent terminal insulin use: with superintendent terminal use Diabetes mellitus complication status: with ophthalmic complications Diabetes mellitus complication detail: with diabetic retinopathy Diabetic retinopathy severity: with unspecified retinopathy severity Diabetes mellitus macular edema: macular edema presence unspecified Laterality: unspecified laterality Qualified Code(s): E11.319 - Type 2 diabetes mellitus with unspecified diabetic retinopathy without macular edema; Z79.4 - long term care administrator (current) use of insulin (8) Hypertension Priority: Secondary Status: Chronic Qualifiers: Hypertension type: essential hypertension Qualified Code(s): I10 - Essential (primary) hypertension Hospital course: Mr. Fitch is a 67 year old male with a known past medical history of hypertension, diabetes type II, chronic diastolic congestive heart failure, CAD with status post cardiac stents, chronic iron deficiency, chronic anemia due to G.I. occult bleeding who had a endoscopy and colonoscopy on 12/17/[address] Lowery found to have normal esophagus and cecal polyp pt presented to ER with fatigue and generalized weakness. Here in the emergency room his hemoglobin came back at 7.7, usually his baseline runs around 8.6. He also complained about it erythema in his right lower extremity associated with some scratch gu. Pt was admitted in the hospital and strated him on IV abx Ancef. For his Iron def anemia gave him IV Venofer x 2 doses. His Hb slightly better today. Pt feels lot better and wants to go home today. He does need out pt endo capsular study so scheduled an out pt appt with GI Dr. Chandler and updated GI MULTIMEDIA MANAGER too. Also recommend to take twice of Iron tab. - Time Spent with Patient Total time spent providing and/or coordinating discharge services: - Discharge Medications Prescriptions: Cephalexin [Keflex] 500 mg PO TID #21 capsule Iron Polysaccharide Complex [Pro Fe] 180 mg PO BID #60 capsule Nystatin OINT [Mycostatin] 1 appl TP TID #1 tube Home Medications: Furosemide [Lasix] 40 mg PO BID 01/19/17 [History] Gabapentin [Neurontin] 300 mg PO HS 01/19/17 [History] Glimepiride [Amaryl] 4 mg PO DAILY 01/19/17 [History] Insulin Degludec [Tresiba Flextouch U-200] 70 unit SQ DAILY 01/19/17 [History] Losartan Potassium [Cozaar] 100 mg PO DAILY 01/19/17 [History] Metformin HCl [Glucophage] 1,000 mg PO BID 01/19/17 [History] Trazodone HCl 100 mg PO HS 01/19/17 [History] Aspirin Enteric Coated [Aspirin EC] 81 mg PO DAILY #30 tablet. 01/23/17 [Rx] Carvedilol 12.5 mg PO BID #60 tablet 01/23/17 [Rx] Pantoprazole Sodium 40 mg PO BID #60 tablet. 01/23/17 [Rx] Rosuvastatin [Crestor] 20 mg PO DAILY #30 tablet 01/23/17 [Rx] Sucralfate [Carafate] 1 gm PO 0730,1630 #60 tablet 01/23/17 [Rx] Liraglutide [Victoza 2-Haider] 1.2 mg SQ DAILY 01/17/18 [History] Cephalexin [Keflex] 500 mg PO TID #21 capsule 01/18/18 [Rx] Iron Polysaccharide Complex [Pro Fe] 180 mg PO BID #60 capsule 01/18/18 [Rx] Nystatin OINT [Mycostatin] 1 appl TP TID #1 tube 01/18/18 [Rx] Allergies/Adverse Reactions: 3 Allergy/AdvReac Type Severity Reaction Status Date / Time No Known Allergies Allergy Verified 01/17/18 13:13 Date of admission: 01/17/18 12:23 Primary care physician: Neeraj Donis MD - Constitutional Vitals: Temp Pulse Resp BP Pulse Ox 98.2 F 102 18 130/87 98 01/18/18 07:18 01/18/18 07:18 01/18/18 07:18 01/18/18 07:18 01/18/18 07:18 General appearance: Present: cooperative, A&O X 3, no acute distress, answers questions appropriately - Head Head exam: Present: atraumatic, normal inspection - Neck Neck exam general surgery: Present: supple - Respiratory Respiratory exam: Present: decreased breath sounds. Absent: respiratory distress, rhonchi, wheezes - Cardiovascular Cardiovascular exam: Present: RRR, +S1, +S2. Absent: tachycardia - GI/Abdominal GI/Abdominal exam: Present: normal bowel sounds, soft. Absent: rebound, rigid, tenderness - Extremities Exam Extremities exam: Absent: calf tenderness, pedal edema, tenderness Additional comments: improving erythema - Back Exam Back exam: Absent: CVA tenderness (L), CVA tenderness (R) - Psychiatric Psychiatric exam: Present: normal affect, normal mood - Patient Status Disposition: Home, Self-Care Condition: Good Overall status at discharge: patient is back to baseline - Discharge Instructions Follow Up With: Neeraj Donis MD [Primary Care Provider] - Diaen Chandler MD [Partnered Physician] - - Diet and Activity Activity: increase activity as tolerated Diet: low salt diet
--- NOTE | 2018-01-18 17:32 | Electrocardiograph Report ---
[address] [address] Test Date: 2018-01-17 Pat Name: Afshin Fitch Department: 102 Room: 2A32 Gender: Loin Trimmer: Bernie : 1950 Requested By: Sebastián Mooney Order Number: [id number] Reading MD: Maryana Chambers Measurements Intervals [place] Rate: 99 P: [place]: 0 QRS: 60 QRSD: 124 T: 87 QT: 369 QTc: 425 Interpretive Statements ATRIAL FIBRILLATION Electronically Signed On 01-18-2018 17:29:56 EDT by Maryana Chambers
--- NOTE | 2018-01-18 17:33 | Electrocardiograph Report ---
[place] [address] Test Date: 2018-01-17 Pat Name: Afshin Fitch Department: 104 Room: [facility] Gender: M Manager Of Applications Development: MATHEUS : 1950 Requested By: Sebsatián Mooney Order Number: [id number] Reading MD: Maryana Chambers Measurements Intervals [place] Rate: 95 P: [place]: 0 QRS: 54 QRSD: 107 T: 110 QT: 363 QTc: 415 Interpretive Statements ATRIAL FIBRILLATION NONSPECIFIC ST & T-WAVE ABNORMALITY ABNORMAL RHYTHM ECG Electronically Signed On 01-18-2018 17:32:04 EDT by Maryana Chambers
== END 2018-01-18 10:40 | disposition home or self-care (01) ==
LOC: 2ANU 09:15 → EMEROO 09:15 → 2ANU 13:31
PROVIDERS: ADMIT Family Medicine; ATTEND Family Medicine

== ENCOUNTER 2019-08-29 13:10 | Inpatient (IN) ==
[2019-08-29] MEDS ORDERED: Isovue-370 500 ML BOTTLE IVP ONE (15:33)
[2019-08-29] MEDS ORDERED: Piperacillin/Tazobactam 3.375 GM in 0.9 % Sodium Chloride Mini Bag 100 ML IVPB ONE (15:47)
[2019-08-29 16:11] LABS: Basophils % 0.3 %; Eosinophils # 0.1 K/mcL (0.0-0.6); Eosinophils % 0.6 %; Hematocrit 34.6 % (37.5-50.1); Hemoglobin 11.3 g/dL (12.9-16.9); Immature Granulocytes % 0.6 % (0-4); Lymphocytes # 0.6 K/mcL (0.6-4.6); Lymphocytes % 3.8 %; Mean Corpuscular HGB Conc 32.7 g/dL (31.6-35.5); Mean Corpuscular Hemoglobin 26.8 pg (28.0-33.3); Mean Corpuscular Volume 82.2 fL (83.0-100.0); Mean Platelet Volume 10.1 fL (9.4-12.4); Monocytes % 6.6 %; Neutrophils # 13.6 K/mcL (1.6-8.9); Platelet Count 214 K/mcL (140-400); Red Blood Count 4.21 M/mcL (4.19-5.50); Red Cell Distribution Width 13.9 % (11.5-14.5); Segmented Neutrophils % 88.1 %; White Blood Count 15.4 K/mcL (4.3-11.1)
[2019-08-29] MEDS ORDERED: 0.9 % Sodium Chloride 1,000 ML IVC ONE (16:26)
[2019-08-29 16:34] LABS: BUN/Creatinine Ratio 25 (6-26); Blood Urea Nitrogen 26 mg/dL (8-23); C-Reactive Protein > 300 mg/L (Less than 10); Calcium 9.6 mg/dL (8.6-10.3); Carbon Dioxide 25 mEq/L (23-29); Chloride 95 mEq/L (98-107); Glucose 330 mg/dL (70-105); Osmolality,Calculated 290 (280-300); Potassium 4.4 mEq/L (3.5-5.1); Sodium 131 mEq/L (136-145); eGFR For African Americans > 60 (> 60); eGFR For Non-African Americans > 60 (> 60)
[2019-08-29] MEDS ORDERED: Naloxone 0.4 MG/ML INJ IVP PRN (20:37)
[2019-08-29] MEDS ORDERED: Ondansetron ODT 4 MG TAB.RAPDIS SL PRN (20:58)
[2019-08-29] MEDS ORDERED: *HR* Heparin 5,000 UNIT/ML VIAL ONE (21:38)
[2019-08-29] MEDS: Insulin LISPRO 300 UNITS/3 ML VIAL SQ SCH (21:42)
[2019-08-29] MEDS: *HR* Heparin 5,000 UNIT/ML VIAL SQ ONE ×2 (21:47→21:52)
[2019-08-29] MEDS: traZODone 50 MG TABLET PO SCH (22:02)
[2019-08-29] MEDS: Gabapentin 300 MG CAPSULE PO SCH (22:03)
[2019-08-29] MEDS: Clindamycin 600 MG/50 ML 600 MG/50 ML IV.SOLN IVPB SCH (23:46)
[2019-08-30] MEDS ORDERED: Clindamycin 600 MG/50 ML 600 MG/50 ML IV.SOLN IVPB SCH
[2019-08-30 06:07] LABS: Basophils % 0.3 %; Eosinophils # 0.2 K/mcL (0.0-0.6); Eosinophils % 1.1 %; Hematocrit 30.5 % (37.5-50.1); Immature Granulocytes % 0.5 % (0-4); Lymphocytes # 0.5 K/mcL (0.6-4.6); Lymphocytes % 3.7 %; Mean Corpuscular HGB Conc 32.8 g/dL (31.6-35.5); Mean Corpuscular Hemoglobin 27.2 pg (28.0-33.3); Mean Corpuscular Volume 82.9 fL (83.0-100.0); Mean Platelet Volume 9.8 fL (9.4-12.4); Monocytes # 1.1 K/mcL (0.0-1.3); Monocytes % 7.9 %; Neutrophils # 12.4 K/mcL (1.6-8.9); Platelet Count 204 K/mcL (140-400); Red Blood Count 3.68 M/mcL (4.19-5.50); Red Cell Distribution Width 14.2 % (11.5-14.5); Segmented Neutrophils % 86.5 %; White Blood Count 14.3 K/mcL (4.3-11.1)
[2019-08-30] MEDS: Cefepime HCl 2,000 MG in Water for inj. (sterile) 20 ML IVP SCH ×2 (06:21→17:29)
[2019-08-30 06:32] LABS: BUN/Creatinine Ratio 20 (6-26); Blood Urea Nitrogen 19 mg/dL (8-23); Carbon Dioxide 25 mEq/L (23-29); Chloride 98 mEq/L (98-107); Glucose 229 mg/dL (70-105); Osmolality,Calculated 290 (280-300); Potassium 4.3 mEq/L (3.5-5.1); Sodium 135 mEq/L (136-145); eGFR For African Americans > 60 (> 60); eGFR For Non-African Americans > 60 (> 60)
[2019-08-30] MEDS: Insulin LISPRO 300 UNITS/3 ML VIAL SQ SCH ×4 (07:30→22:58)
[2019-08-30] MEDS: Clindamycin 600 MG/50 ML 600 MG/50 ML IV.SOLN IVPB SCH ×2 (08:35→15:27)
[2019-08-30] MEDS: Furosemide 40 MG TABLET PO SCH (08:35)
[2019-08-30] MEDS: carvediloL 6.25 MG TABLET PO SCH ×2 (08:35→17:29)
[2019-08-30] MEDS: Gabapentin 300 MG CAPSULE PO SCH (08:35)
[2019-08-30] MEDS ORDERED: Aspirin Enteric Coated 81 MG Tablet PO SCH (09:00)
[2019-08-30] MEDS ORDERED: Dextrose Gel 15 GM/37.5 ML TUBE PO PRN ×2 (11:33)
[2019-08-30] MEDS ORDERED: *HR* Dextrose 50 % in Water (Syg) 50 ML SYRINGE IVP PRN (11:33)
[2019-08-30] MEDS ORDERED: D5% in Water 1,000 ML IVC PRN (11:33)
[2019-08-30] MEDS ORDERED: Sucralfate 1 GM TABLET PO SCH (16:30)
[2019-08-30] MEDS ORDERED: ROPIVACAINE/PF/NS 0.25% 1 EACH SYRINGE INTRAART ONE (18:34)
[2019-08-30] MEDS ORDERED: Propofol 500 MG/50 ML INFUS..BTL ONE (18:47)
[2019-08-30] MEDS ORDERED: Lidocaine -MPF 2% 2 ML VIAL ONE ×2 (18:47→21:47)
[2019-08-30] MEDS ORDERED: *HR* Propofol 200 MG/20 ML VIAL IVP ONE ×2 (18:47→21:47)
[2019-08-30] MEDS ORDERED: Acetaminophen IV 1,000 MG/100 ML INFUS..BTL ONE (19:46)
[2019-08-30] MEDS ORDERED: *HR* FentaNYL (PF) 100 MCG/2 ML VIAL ONE (21:47)
[2019-08-30] MEDS ORDERED: Lacri-Lube 3.5 GM TUBE ONE (22:27)
[2019-08-30] MEDS ORDERED: *HR* Magnesium Sulfate 1 GM/2 ML VIAL ONE (22:41)
[2019-08-30] MEDS ORDERED: *HR* PHENYLEPHRINE 1,000 MCG/10 ML SYRINGE IVP ONE ×2 (22:42→22:57)
[2019-08-30] MEDS ORDERED: Ondansetron 4 MG/2 ML VIAL ONE (22:55)
[2019-08-30] MEDS ORDERED: Dexamethasone 4 MG/ML VIAL ONE (22:55)
[2019-08-30] MEDS ORDERED: Ondansetron 4 MG/2 ML VIAL IVP ONE (23:58)
[2019-08-31] MEDS ORDERED: Ondansetron 4 MG/2 ML VIAL ONE
[2019-08-31] MEDS ORDERED: D5% in Water 1,000 ML IVC PRN (00:31)
[2019-08-31] MEDS ORDERED: Naloxone 0.4 MG/ML INJ IVP PRN (00:31)
[2019-08-31] MEDS ORDERED: Ondansetron ODT 4 MG TAB.RAPDIS SL PRN (00:31)
[2019-08-31] MEDS ORDERED: *HR* Dextrose 50 % in Water (Syg) 50 ML SYRINGE IVP PRN (00:31)
[2019-08-31] MEDS ORDERED: Dextrose Gel 15 GM/37.5 ML TUBE PO PRN ×2 (00:31)
[2019-08-31] MEDS ORDERED: Magnesium Sulfate 3 GM in 0.9 % Sodium Chloride 100 ML IVPB ONE (01:06)
[2019-08-31] MEDS: Clindamycin 600 MG/50 ML 600 MG/50 ML IV.SOLN IVPB SCH ×4 (02:00→23:49)
[2019-08-31] MEDS: Insulin LISPRO 300 UNITS/3 ML VIAL SQ SCH ×7 (02:01→23:49)
[2019-08-31] MEDS: Furosemide 40 MG TABLET PO SCH ×3 (02:01→16:51)
[2019-08-31] MEDS: traZODone 50 MG TABLET PO SCH ×2 (02:01→20:13)
[2019-08-31] MEDS: Gabapentin 300 MG CAPSULE PO SCH ×3 (02:01→20:13)
[2019-08-31 02:12] LABS: Basophils # 0.1 K/mcL (0.0-0.2); Basophils % 0.3 %; Eosinophils # 0.1 K/mcL (0.0-0.6); Eosinophils % 0.5 %; Hematocrit 29.6 % (37.5-50.1); Hemoglobin 9.6 g/dL (12.9-16.9); Immature Granulocytes % 0.7 % (0-4); Lymphocytes # 0.4 K/mcL (0.6-4.6); Lymphocytes % 2.9 %; Mean Corpuscular HGB Conc 32.4 g/dL (31.6-35.5); Mean Corpuscular Hemoglobin 27.2 pg (28.0-33.3); Mean Corpuscular Volume 83.9 fL (83.0-100.0); Mean Platelet Volume 10.4 fL (9.4-12.4); Monocytes # 0.8 K/mcL (0.0-1.3); Monocytes % 5.4 %; Neutrophils # 13.6 K/mcL (1.6-8.9); Platelet Count 195 K/mcL (140-400); Red Blood Count 3.53 M/mcL (4.19-5.50); Red Cell Distribution Width 14.6 % (11.5-14.5); Segmented Neutrophils % 90.2 %
[2019-08-31 02:27] LABS: BUN/Creatinine Ratio 21 (6-26); Blood Urea Nitrogen 26 mg/dL (8-23); Carbon Dioxide 21 mEq/L (23-29); Chloride 103 mEq/L (98-107); Glucose 234 mg/dL (70-105); Magnesium 2.4 mg/dL (1.6-2.6); Osmolality,Calculated 290 (280-300); Phosphorous 3.3 mg/dL (2.7-4.5); Potassium 4.7 mEq/L (3.5-5.1); Sodium 134 mEq/L (136-145); eGFR For African Americans > 60 (> 60); eGFR For Non-African Americans 59 (> 60)
[2019-08-31] MEDS: Cefepime HCl 2,000 MG in Water for inj. (sterile) 20 ML IVP SCH ×2 (06:25→17:04)
[2019-08-31] MEDS: Sucralfate 1 GM TABLET PO SCH ×2 (06:27→16:52)
[2019-08-31] MEDS: carvediloL 6.25 MG TABLET PO SCH ×2 (07:52→16:51)
[2019-08-31] MEDS: Aspirin Enteric Coated 81 MG Tablet PO SCH (07:52)
[2019-08-31] MEDS ORDERED: Perflutren Lipid Microsphere 1.3 ML in 0.9 % Sodium Chloride 8.7 ML IVP ONE (15:33)
[2019-08-31] MEDS ORDERED: 0.9 % Sodium Chloride 500 ML IVC ONE (15:37)
[2019-08-31] MEDS ORDERED: 0.9 % Sodium Chloride 250 ML IVC ONE (15:51)
[2019-08-31] MEDS: Insulin DETEMIR 100 UNIT/ML X5UNITS SQ SCH (20:10)
[2019-09-01] MEDS: Insulin LISPRO 300 UNITS/3 ML VIAL SQ SCH ×5 (03:31→20:56)
[2019-09-01] MEDS: Cefepime HCl 2,000 MG in Water for inj. (sterile) 20 ML IVP SCH ×2 (06:42→16:54)
[2019-09-01 08:19] LABS: Hematocrit 30.1 % (37.5-50.1); Hemoglobin 9.7 g/dL (12.9-16.9); Mean Corpuscular HGB Conc 32.2 g/dL (31.6-35.5); Mean Corpuscular Volume 83.8 fL (83.0-100.0); Mean Platelet Volume 10.2 fL (9.4-12.4); Platelet Count 252 K/mcL (140-400); Red Blood Count 3.59 M/mcL (4.19-5.50); Red Cell Distribution Width 14.8 % (11.5-14.5); White Blood Count 9.6 K/mcL (4.3-11.1)
[2019-09-01 08:41] LABS: BUN/Creatinine Ratio 24 (6-26); Blood Urea Nitrogen 32 mg/dL (8-23); Calcium 8.7 mg/dL (8.6-10.3); Carbon Dioxide 26 mEq/L (23-29); Chloride 100 mEq/L (98-107); Glucose 167 mg/dL (70-105); Osmolality,Calculated 295 (280-300); Potassium 4.2 mEq/L (3.5-5.1); Sodium 137 mEq/L (136-145); eGFR For African Americans > 60 (> 60); eGFR For Non-African Americans 53 (> 60)
[2019-09-01] MEDS: Sucralfate 1 GM TABLET PO SCH ×2 (09:00→16:53)
[2019-09-01] MEDS: Gabapentin 300 MG CAPSULE PO SCH ×2 (09:01→20:47)
[2019-09-01] MEDS: Furosemide 40 MG TABLET PO SCH (09:01)
[2019-09-01] MEDS: Clindamycin 600 MG/50 ML 600 MG/50 ML IV.SOLN IVPB SCH ×2 (09:01→16:54)
[2019-09-01] MEDS: Aspirin Enteric Coated 81 MG Tablet PO SCH (09:01)
[2019-09-01] MEDS: carvediloL 6.25 MG TABLET PO SCH ×2 (09:01→16:54)
[2019-09-01] MEDS: Insulin DETEMIR 100 UNIT/ML X5UNITS SQ SCH (20:47)
[2019-09-01] MEDS: traZODone 50 MG TABLET PO SCH (20:47)
[2019-09-02] MEDS ORDERED: Insulin Human Regular 10 UNIT in 0.9 % Sodium Chloride 10 ML IV ONE (00:12)
[2019-09-02] MEDS: Clindamycin 600 MG/50 ML 600 MG/50 ML IV.SOLN IVPB SCH ×3 (01:25→15:28)
[2019-09-02] MEDS: Insulin LISPRO 300 UNITS/3 ML VIAL SQ SCH ×7 (02:30→23:29)
[2019-09-02] MEDS: Cefepime HCl 2,000 MG in Water for inj. (sterile) 20 ML IVP SCH ×2 (05:38→17:09)
[2019-09-02 06:24] LABS: Hemoglobin 9.5 g/dL (12.9-16.9); Mean Corpuscular HGB Conc 31.7 g/dL (31.6-35.5); Mean Corpuscular Hemoglobin 26.8 pg (28.0-33.3); Mean Corpuscular Volume 84.7 fL (83.0-100.0); Mean Platelet Volume 10.2 fL (9.4-12.4); Platelet Count 278 K/mcL (140-400); Red Blood Count 3.54 M/mcL (4.19-5.50); Red Cell Distribution Width 14.6 % (11.5-14.5); White Blood Count 8.2 K/mcL (4.3-11.1)
[2019-09-02 06:43] LABS: BUN/Creatinine Ratio 23 (6-26); Blood Urea Nitrogen 28 mg/dL (8-23); Calcium 8.7 mg/dL (8.6-10.3); Carbon Dioxide 28 mEq/L (23-29); Chloride 97 mEq/L (98-107); Glucose 190 mg/dL (70-105); Osmolality,Calculated 289 (280-300); Potassium 4.4 mEq/L (3.5-5.1); Sodium 134 mEq/L (136-145); eGFR For African Americans > 60 (> 60); eGFR For Non-African Americans 57 (> 60)
[2019-09-02] MEDS: carvediloL 6.25 MG TABLET PO SCH ×2 (07:39→17:09)
[2019-09-02] MEDS: Sucralfate 1 GM TABLET PO SCH ×2 (07:39→15:28)
[2019-09-02] MEDS: Gabapentin 300 MG CAPSULE PO SCH ×2 (07:40→20:17)
[2019-09-02] MEDS: Aspirin Enteric Coated 81 MG Tablet PO SCH (07:40)
[2019-09-02] MEDS ORDERED: Vancomycin 500 MG in 0.9 % Sodium Chloride Mini Bag 100 ML IVPB ONE (09:55)
[2019-09-02] MEDS: Apixaban 5 MG TABLET PO SCH (20:17)
[2019-09-02] MEDS: traZODone 50 MG TABLET PO SCH (20:17)
[2019-09-02] MEDS ORDERED: *HR* HYDROcodone/Acet 5/325 mg TABLET PO ONE (20:26)
[2019-09-02] MEDS ORDERED: Insulin DETEMIR 100 UNIT/ML X5UNITS SQ SCH ×2 (21:00)
[2019-09-03] MEDS: Insulin LISPRO 300 UNITS/3 ML VIAL SQ SCH ×5 (03:26→19:57)
[2019-09-03] MEDS: Cefepime HCl 2,000 MG in Water for inj. (sterile) 20 ML IVP SCH ×2 (06:38→17:53)
[2019-09-03] MEDS: carvediloL 6.25 MG TABLET PO SCH ×2 (06:39→17:54)
[2019-09-03 07:03] LABS: Hematocrit 29.7 % (37.5-50.1); Hemoglobin 9.5 g/dL (12.9-16.9); Mean Corpuscular Hemoglobin 27.5 pg (28.0-33.3); Mean Corpuscular Volume 85.8 fL (83.0-100.0); Mean Platelet Volume 10.4 fL (9.4-12.4); Platelet Count 300 K/mcL (140-400); Red Blood Count 3.46 M/mcL (4.19-5.50); Red Cell Distribution Width 14.7 % (11.5-14.5); White Blood Count 8.4 K/mcL (4.3-11.1)
[2019-09-03 07:13] LABS: BUN/Creatinine Ratio 20 (6-26); Blood Urea Nitrogen 23 mg/dL (8-23); Calcium 8.5 mg/dL (8.6-10.3); Carbon Dioxide 27 mEq/L (23-29); Chloride 97 mEq/L (98-107); Glucose 172 mg/dL (70-105); Osmolality,Calculated 288 (280-300); Potassium 4.1 mEq/L (3.5-5.1); Sodium 135 mEq/L (136-145); eGFR For African Americans > 60 (> 60); eGFR For Non-African Americans > 60 (> 60)
[2019-09-03] MEDS ORDERED: Dexmedetomidine HCl 400 MCG/100 ML MLS IVC ONE (07:26)
[2019-09-03] MEDS ORDERED: *HR* FentaNYL (PF) 100 MCG/2 ML VIAL ONE (07:34)
[2019-09-03] MEDS ORDERED: *HR* Propofol 200 MG/20 ML VIAL IVP ONE ×2 (07:34→08:40)
[2019-09-03] MEDS ORDERED: Lidocaine -MPF 2% 2 ML VIAL ONE (07:35)
[2019-09-03] MEDS: Sucralfate 1 GM TABLET PO SCH ×2 (07:38→15:21)
[2019-09-03] MEDS: Aspirin Enteric Coated 81 MG Tablet PO SCH (07:39)
[2019-09-03] MEDS: Apixaban 5 MG TABLET PO SCH ×2 (07:39→19:55)
[2019-09-03] MEDS: Gabapentin 300 MG CAPSULE PO SCH ×2 (07:40→19:54)
[2019-09-03] MEDS ORDERED: Bupivacaine/Clonidine Syringe 20 ML, Syringe LUER-LOK 1 EACH TP ONE (08:00)
[2019-09-03] MEDS ORDERED: Dextrose Gel 15 GM/37.5 ML TUBE PO PRN ×2 (10:08)
[2019-09-03] MEDS ORDERED: Ondansetron ODT 4 MG TAB.RAPDIS SL PRN (10:08)
[2019-09-03] MEDS ORDERED: D5% in Water 1,000 ML IVC PRN (10:08)
[2019-09-03] MEDS ORDERED: Naloxone 0.4 MG/ML INJ IVP PRN (10:08)
[2019-09-03] MEDS ORDERED: *HR* Dextrose 50 % in Water (Syg) 50 ML SYRINGE IVP PRN (10:08)
[2019-09-03] MEDS: traZODone 50 MG TABLET PO SCH (19:55)
[2019-09-03] MEDS: Insulin DETEMIR 100 UNIT/ML X5UNITS SQ SCH (21:21)
[2019-09-04] MEDS: Insulin LISPRO 300 UNITS/3 ML VIAL SQ SCH ×6 (01:35→20:01)
[2019-09-04] MEDS: Cefepime HCl 2,000 MG in Water for inj. (sterile) 20 ML IVP SCH ×2 (05:23→18:07)
[2019-09-04 05:54] LABS: Hematocrit 28.2 % (37.5-50.1); Mean Corpuscular HGB Conc 31.9 g/dL (31.6-35.5); Mean Corpuscular Hemoglobin 26.9 pg (28.0-33.3); Mean Corpuscular Volume 84.4 fL (83.0-100.0); Mean Platelet Volume 10.2 fL (9.4-12.4); Platelet Count 303 K/mcL (140-400); Red Blood Count 3.34 M/mcL (4.19-5.50); Red Cell Distribution Width 14.8 % (11.5-14.5); White Blood Count 8.8 K/mcL (4.3-11.1)
[2019-09-04 06:09] LABS: BUN/Creatinine Ratio 16 (6-26); Blood Urea Nitrogen 17 mg/dL (8-23); Calcium 8.6 mg/dL (8.6-10.3); Carbon Dioxide 29 mEq/L (23-29); Chloride 99 mEq/L (98-107); Glucose 175 mg/dL (70-105); Osmolality,Calculated 282 (280-300); Potassium 4.5 mEq/L (3.5-5.1); Sodium 133 mEq/L (136-145); eGFR For African Americans > 60 (> 60); eGFR For Non-African Americans > 60 (> 60)
[2019-09-04] MEDS: Sucralfate 1 GM TABLET PO SCH ×2 (08:08→16:10)
[2019-09-04] MEDS: Apixaban 5 MG TABLET PO SCH ×2 (08:08→20:04)
[2019-09-04] MEDS: Gabapentin 300 MG CAPSULE PO SCH ×2 (08:09→20:03)
[2019-09-04] MEDS: carvediloL 6.25 MG TABLET PO SCH ×2 (08:09→16:10)
[2019-09-04] MEDS: Aspirin Enteric Coated 81 MG Tablet PO SCH (08:09)
[2019-09-04] MEDS: Insulin DETEMIR 100 UNIT/ML X5UNITS SQ SCH (20:02)
[2019-09-04] MEDS: traZODone 50 MG TABLET PO SCH (20:04)
[2019-09-04] MEDS ORDERED: *HR* HYDROcodone/Acet 5/325 mg TABLET PO ONE (20:31)
[2019-09-05] MEDS: Insulin LISPRO 300 UNITS/3 ML VIAL SQ SCH ×9 (00:20→20:24)
[2019-09-05 05:09] LABS: Hematocrit 28.5 % (37.5-50.1); Hemoglobin 9.2 g/dL (12.9-16.9); Mean Corpuscular HGB Conc 32.3 g/dL (31.6-35.5); Mean Corpuscular Hemoglobin 27.1 pg (28.0-33.3); Mean Corpuscular Volume 84.1 fL (83.0-100.0); Mean Platelet Volume 9.7 fL (9.4-12.4); Platelet Count 312 K/mcL (140-400); Red Blood Count 3.39 M/mcL (4.19-5.50); Red Cell Distribution Width 14.8 % (11.5-14.5); White Blood Count 9.2 K/mcL (4.3-11.1)
[2019-09-05 05:24] LABS: BUN/Creatinine Ratio 14 (6-26); Blood Urea Nitrogen 13 mg/dL (8-23); Calcium 8.7 mg/dL (8.6-10.3); Carbon Dioxide 28 mEq/L (23-29); Chloride 100 mEq/L (98-107); Glucose 200 mg/dL (70-105); Osmolality,Calculated 284 (280-300); Potassium 4.3 mEq/L (3.5-5.1); Sodium 134 mEq/L (136-145); eGFR For African Americans > 60 (> 60); eGFR For Non-African Americans > 60 (> 60)
[2019-09-05] MEDS: Cefepime HCl 2,000 MG in Water for inj. (sterile) 20 ML IVP SCH ×3 (06:04→23:34)
[2019-09-05] MEDS: Sucralfate 1 GM TABLET PO SCH ×2 (08:19→17:28)
[2019-09-05] MEDS: Gabapentin 300 MG CAPSULE PO SCH ×2 (08:19→20:24)
[2019-09-05] MEDS: Aspirin Enteric Coated 81 MG Tablet PO SCH (08:19)
[2019-09-05] MEDS: Apixaban 5 MG TABLET PO SCH ×2 (08:20→20:24)
[2019-09-05] MEDS: carvediloL 6.25 MG TABLET PO SCH ×2 (08:20→17:28)
[2019-09-05] MEDS ORDERED: Insulin DETEMIR 100 UNIT/ML X5UNITS SQ SCH (09:00)
[2019-09-05] MEDS: Insulin DETEMIR 100 UNIT/ML X5UNITS SQ SCH (20:23)
[2019-09-05] MEDS: traZODone 50 MG TABLET PO SCH (20:24)
[2019-09-05] MEDS ORDERED: *HR* OxyCODONE Immed Rel 5 MG TABLET PO ONE (23:15)
[2019-09-06] MEDS: Insulin LISPRO 300 UNITS/3 ML VIAL SQ SCH ×8 (02:08→21:07)
[2019-09-06 05:06] LABS: Hemoglobin 8.8 g/dL (12.9-16.9); Mean Corpuscular HGB Conc 31.4 g/dL (31.6-35.5); Mean Corpuscular Hemoglobin 27.5 pg (28.0-33.3); Mean Corpuscular Volume 87.5 fL (83.0-100.0); Mean Platelet Volume 9.8 fL (9.4-12.4); Platelet Count 331 K/mcL (140-400); Red Cell Distribution Width 14.9 % (11.5-14.5); White Blood Count 9.6 K/mcL (4.3-11.1)
[2019-09-06 05:24] LABS: BUN/Creatinine Ratio 14 (6-26); Blood Urea Nitrogen 13 mg/dL (8-23); Calcium 8.5 mg/dL (8.6-10.3); Carbon Dioxide 29 mEq/L (23-29); Chloride 99 mEq/L (98-107); Glucose 173 mg/dL (70-105); Osmolality,Calculated 284 (280-300); Sodium 135 mEq/L (136-145); eGFR For African Americans > 60 (> 60); eGFR For Non-African Americans > 60 (> 60)
[2019-09-06] MEDS: Cefepime HCl 2,000 MG in Water for inj. (sterile) 20 ML IVP SCH ×2 (08:34→16:23)
[2019-09-06] MEDS: Insulin DETEMIR 100 UNIT/ML X5UNITS SQ SCH ×2 (08:35→21:05)
[2019-09-06] MEDS: Aspirin Enteric Coated 81 MG Tablet PO SCH (08:36)
[2019-09-06] MEDS: carvediloL 6.25 MG TABLET PO SCH ×2 (08:37→16:24)
[2019-09-06] MEDS: Gabapentin 300 MG CAPSULE PO SCH ×2 (08:37→21:06)
[2019-09-06] MEDS: Sucralfate 1 GM TABLET PO SCH ×2 (08:37→16:24)
[2019-09-06] MEDS: Apixaban 5 MG TABLET PO SCH ×2 (08:37→21:05)
[2019-09-06] MEDS ORDERED: Lidocaine -MPF 1% 5 ML AMPUL INFILT ONE (08:58)
[2019-09-06] MEDS: traZODone 50 MG TABLET PO SCH (21:06)
[2019-09-07 02:43] LABS: Hematocrit 27.4 % (37.5-50.1); Hemoglobin 8.5 g/dL (12.9-16.9); Mean Corpuscular Hemoglobin 27.2 pg (28.0-33.3); Mean Corpuscular Volume 87.5 fL (83.0-100.0); Platelet Count 326 K/mcL (140-400); Red Blood Count 3.13 M/mcL (4.19-5.50); Red Cell Distribution Width 15.5 % (11.5-14.5); White Blood Count 8.9 K/mcL (4.3-11.1)
[2019-09-07] MEDS: Insulin LISPRO 300 UNITS/3 ML VIAL SQ SCH ×6 (03:31→11:44)
[2019-09-07] MEDS: Cefepime HCl 2,000 MG in Water for inj. (sterile) 20 ML IVP SCH ×2 (03:32→08:23)
[2019-09-07 03:42] LABS: BUN/Creatinine Ratio 19 (6-26); Blood Urea Nitrogen 15 mg/dL (8-23); Calcium 8.5 mg/dL (8.6-10.3); Carbon Dioxide 27 mEq/L (23-29); Chloride 101 mEq/L (98-107); Glucose 208 mg/dL (70-105); Osmolality,Calculated 281 (280-300); Potassium 4.5 mEq/L (3.5-5.1); Sodium 132 mEq/L (136-145); eGFR For African Americans > 60 (> 60); eGFR For Non-African Americans > 60 (> 60)
[2019-09-07] MEDS: Sucralfate 1 GM TABLET PO SCH (08:21)
[2019-09-07] MEDS: Gabapentin 300 MG CAPSULE PO SCH (08:22)
[2019-09-07] MEDS: carvediloL 6.25 MG TABLET PO SCH (08:22)
[2019-09-07] MEDS: Apixaban 5 MG TABLET PO SCH (08:22)
[2019-09-07] MEDS: Aspirin Enteric Coated 81 MG Tablet PO SCH (08:22)
[2019-09-07] MEDS: Insulin DETEMIR 100 UNIT/ML X5UNITS SQ SCH (08:29)
[2019-09-07 12:43] VITALS: BP 122/66
[2019-09-07] MEDS ORDERED: Aminoglycoside Consult 1 EACH MC ONE (16:04)
== END 2019-09-07 16:05 | DRG 853 ==
LOC: CDU 13:10 → EMEROOARM 13:10 → SUATTDRO 20:05 → CDU 20:34 → 3NENU 09-01 18:32
PROVIDERS: ADMIT Internal Medicine; ATTEND Internal Medicine

== ENCOUNTER 2021-08-26 15:06 | Inpatient (IN) ==
[2021-08-26] MEDS ORDERED: Naloxone 0.4 MG/ML INJ IVP PRN (17:22)
[2021-08-26] MEDS ORDERED: Ondansetron 4 MG/2 ML VIAL IVP PRN (17:22)
[2021-08-26] MEDS ORDERED: Dextrose Gel 15 GM/37.5 ML TUBE PO PRN ×2 (17:31)
[2021-08-26] MEDS ORDERED: *HR* Dextrose 50 % in Water (Syg) 50 ML SYRINGE IVP PRN (17:31)
[2021-08-26] MEDS ORDERED: D5% in Water 1,000 ML IVC PRN (17:31)
[2021-08-26] MEDS ORDERED: Piperacillin/Tazobactam 3.375 GM in 0.9 % Sodium Chloride Mini Bag 100 ML IVPB SCH (18:00)
[2021-08-26] MEDS ORDERED: Vancomycin 1,500 MG/265 ML IV.SOLN IVPB ONE (18:00)
[2021-08-26] MEDS: Insulin LISPRO 300 UNITS/3 ML VIAL SUBQ SCH (21:09)
[2021-08-26] MEDS: *HR* OxyCODONE/APAP 5/325 TABLET PO PRN (21:21)
[2021-08-26] MEDS: Cefepime HCl 2,000 MG in 0.9 % Sodium Chloride Mini Bag 100 ML IVPB SCH (21:32)
[2021-08-26] MEDS: Gabapentin 300 MG CAPSULE PO SCH (21:57)
[2021-08-26] MEDS: *HR* Heparin 5,000 UNIT/ML VIAL SQ SCH (21:58)
[2021-08-26] MEDS: traZODone 50 MG TABLET PO SCH (21:58)
[2021-08-27] MEDS ORDERED: D5% in Water 1,000 ML IVC PRN (01:16)
[2021-08-27] MEDS ORDERED: Dextrose Gel 15 GM/37.5 ML TUBE PO PRN ×2 (01:16)
[2021-08-27] MEDS ORDERED: *HR* Dextrose 50 % in Water (Syg) 50 ML SYRINGE IVP PRN (01:16)
[2021-08-27 01:18] LABS: Basophils % 0.3 %; Eosinophils # 0.2 K/mcL (0.0-0.6); Hematocrit 29.7 % (37.5-50.1); Hemoglobin 8.8 g/dL (12.9-16.9); Immature Granulocytes % 0.6 % (0-4); Lymphocytes # 0.7 K/mcL (0.6-4.6); Lymphocytes % 4.9 %; Mean Corpuscular HGB Conc 29.6 g/dL (31.6-35.5); Mean Corpuscular Hemoglobin 21.1 pg (28.0-33.3); Mean Corpuscular Volume 71.2 fL (83.0-100.0); Monocytes # 1.1 K/mcL (0.0-1.3); Monocytes % 7.6 %; Neutrophils # 12.5 K/mcL (1.6-8.9); Platelet Count 327 K/mcL (140-400); Red Blood Count 4.17 M/mcL (4.19-5.50); Red Cell Distribution Width 18.6 % (11.5-14.5); Segmented Neutrophils % 85.6 %; White Blood Count 14.7 K/mcL (4.3-11.1)
[2021-08-27 01:36] LABS: Alanine Aminotransferase 10 Units/L (7-52); Albumin/Globulin Ratio 0.8 (1.1-2.2); Alkaline Phosphatase 118 Units/L (34-104); Aspartate Amino Transferase 12 Units/L (13-39); BUN/Creatinine Ratio 12 (6-26); Bilirubin,Total 0.8 mg/dL (0.3-1.0); Blood Urea Nitrogen 15 mg/dL (8-23); C-Reactive Protein 163 mg/L (Less than 10); Calcium 8.6 mg/dL (8.6-10.3); Carbon Dioxide 26 mEq/L (23-29); Chloride 99 mEq/L (98-107); Chol/HDL Ratio 2.8 (0-4.9); Cholesterol 51 mg/dL (< 200); Glucose 274 mg/dL (70-105); HDL Cholesterol 18 mg/dL (40-59); LDL Cholesterol,Calculated 20 mg/dL (< 100); Magnesium 1.6 mg/dL (1.6-2.6); Osmolality,Calculated 277 (280-300); Potassium 4.4 mEq/L (3.5-5.1); Sodium 128 mEq/L (136-145); Triglycerides 66 mg/dL (< 150); eGFR For African Americans > 60 (> 60); eGFR For Non-African Americans 56 (> 60)
[2021-08-27] MEDS: Insulin LISPRO 300 UNITS/3 ML VIAL SUBQ SCH ×5 (01:56→22:05)
[2021-08-27] MEDS: *HR* OxyCODONE/APAP 5/325 TABLET PO PRN ×2 (06:05→22:04)
[2021-08-27] MEDS: *HR* Heparin 5,000 UNIT/ML VIAL SQ SCH ×3 (06:05→22:04)
[2021-08-27] MEDS: Cefepime HCl 2,000 MG in 0.9 % Sodium Chloride Mini Bag 100 ML IVPB SCH ×2 (06:06→17:31)
[2021-08-27] MEDS: carvediloL 6.25 MG TABLET PO SCH ×2 (08:04→17:31)
[2021-08-27] MEDS: Gabapentin 300 MG CAPSULE PO SCH ×3 (08:04→22:05)
[2021-08-27] MEDS: Vancomycin 1,500 MG/265 ML IV.SOLN IVPB SCH (08:05)
[2021-08-27] MEDS ORDERED: Gadolinium Contrast Agent (WT Based) IV PRN (11:09)
[2021-08-27] MEDS: traZODone 50 MG TABLET PO SCH (22:04)
[2021-08-28] MEDS: Cefepime HCl 2,000 MG in 0.9 % Sodium Chloride Mini Bag 100 ML IVPB SCH ×2 (05:15→17:03)
[2021-08-28] MEDS: *HR* Heparin 5,000 UNIT/ML VIAL SQ SCH ×3 (05:15→21:56)
[2021-08-28] MEDS: *HR* OxyCODONE/APAP 5/325 TABLET PO PRN ×3 (05:15→20:17)
[2021-08-28 05:56] LABS: Estimated Average Glucose 272 mg/dl; Hemoglobin A1C 11.1 %
[2021-08-28] MEDS: Furosemide 40 MG TABLET PO SCH (10:30)
[2021-08-28] MEDS: Gabapentin 300 MG CAPSULE PO SCH ×3 (10:30→20:18)
[2021-08-28] MEDS: Aspirin Enteric Coated 81 MG Tablet PO SCH (10:30)
[2021-08-28] MEDS: carvediloL 6.25 MG TABLET PO SCH ×2 (10:35→17:09)
[2021-08-28] MEDS: Vancomycin 1,500 MG/265 ML IV.SOLN IVPB SCH (10:36)
[2021-08-28] MEDS: Insulin LISPRO 300 UNITS/3 ML VIAL SUBQ SCH ×4 (10:39→21:55)
[2021-08-28] MEDS: traZODone 50 MG TABLET PO SCH (20:18)
[2021-08-29] MEDS: *HR* Heparin 5,000 UNIT/ML VIAL SQ SCH ×3 (05:34→22:06)
[2021-08-29] MEDS: Cefepime HCl 2,000 MG in 0.9 % Sodium Chloride Mini Bag 100 ML IVPB SCH ×2 (06:09→18:07)
[2021-08-29] MEDS ORDERED: *HR* FentaNYL (PF) 100 MCG/2 ML VIAL IVP PRN ×2 (06:31→13:44)
[2021-08-29] MEDS: carvediloL 6.25 MG TABLET PO SCH ×2 (09:00→18:07)
[2021-08-29] MEDS: Vancomycin 1,500 MG/265 ML IV.SOLN IVPB SCH (09:01)
[2021-08-29 09:42] LABS: BUN/Creatinine Ratio 19 (6-26); Blood Urea Nitrogen 22 mg/dL (8-23); Carbon Dioxide 28 mEq/L (23-29); Chloride 97 mEq/L (98-107); Glucose 322 mg/dL (70-105); Magnesium 1.9 mg/dL (1.6-2.6); Osmolality,Calculated 288 (280-300); Phosphorous 1.9 mg/dL (2.7-4.5); Potassium 4.7 mEq/L (3.5-5.1); Sodium 131 mEq/L (136-145); eGFR For African Americans > 60 (> 60); eGFR For Non-African Americans > 60 (> 60)
[2021-08-29 09:44] LABS: Basophils # 0.1 K/mcL (0.0-0.2); Basophils % 0.5 %; Eosinophils # 0.2 K/mcL (0.0-0.6); Eosinophils % 1.9 %; Hemoglobin 9.7 g/dL (12.9-16.9); Immature Granulocytes % 0.7 % (0-4); Lymphocytes # 0.9 K/mcL (0.6-4.6); Lymphocytes % 8.3 %; Mean Corpuscular HGB Conc 29.4 g/dL (31.6-35.5); Mean Corpuscular Hemoglobin 20.9 pg (28.0-33.3); Mean Platelet Volume 9.7 fL (9.4-12.4); Monocytes # 0.9 K/mcL (0.0-1.3); Monocytes % 8.7 %; Neutrophils # 8.1 K/mcL (1.6-8.9); Platelet Count 382 K/mcL (140-400); Red Blood Count 4.65 M/mcL (4.19-5.50); Red Cell Distribution Width 18.8 % (11.5-14.5); Segmented Neutrophils % 79.9 %; White Blood Count 10.2 K/mcL (4.3-11.1)
[2021-08-29] MEDS: Furosemide 40 MG TABLET PO SCH (09:47)
[2021-08-29] MEDS: Aspirin Enteric Coated 81 MG Tablet PO SCH (09:48)
[2021-08-29] MEDS: Gabapentin 300 MG CAPSULE PO SCH ×3 (09:48→22:05)
[2021-08-29] MEDS: Insulin LISPRO 300 UNITS/3 ML VIAL SUBQ SCH ×4 (09:53→22:06)
[2021-08-29] MEDS ORDERED: Ondansetron 4 MG/2 ML VIAL ONE (10:54)
[2021-08-29] MEDS ORDERED: *HR* FentaNYL (PF) 100 MCG/2 ML VIAL ONE (10:54)
[2021-08-29] MEDS ORDERED: *HR* Propofol 200 MG/20 ML VIAL IVP ONE (10:54)
[2021-08-29] MEDS ORDERED: Lidocaine -MPF 2% 5 ML VIAL ONE (10:54)
[2021-08-29] MEDS ORDERED: Acetaminophen IV 1,000 MG/100 ML BAG IVPB ONE ×2 (11:39→13:44)
[2021-08-29] MEDS ORDERED: Famotidine 20 MG/2 ML VIAL IVP ONE (11:39)
[2021-08-29] MEDS ORDERED: Ringers Solution, Lactated 1,000 ML IVC SCH ×2 (12:15→13:44)
[2021-08-29] MEDS ORDERED: Naloxone 0.4 MG/ML INJ IVP PRN (13:44)
[2021-08-29] MEDS ORDERED: *HR* Dextrose 50 % in Water (Syg) 50 ML SYRINGE IVP PRN (13:44)
[2021-08-29] MEDS ORDERED: Ondansetron 4 MG/2 ML VIAL IVP PRN (13:44)
[2021-08-29] MEDS ORDERED: D5% in Water 1,000 ML IVC PRN (13:44)
[2021-08-29] MEDS ORDERED: Gadolinium Contrast Agent (WT Based) IV PRN (13:44)
[2021-08-29] MEDS ORDERED: Dextrose Gel 15 GM/37.5 ML TUBE PO PRN ×2 (13:44)
[2021-08-29] MEDS: *HR* OxyCODONE/APAP 5/325 TABLET PO PRN ×2 (14:11→22:14)
[2021-08-29] MEDS ORDERED: Bupivacaine/Clonidine Syringe 20 ML, Syringe LUER-LOK 1 EACH TP ONE ×2 (16:00)
[2021-08-29] MEDS ORDERED: Vancomycin 1,250 MG/262.5 ML IV.SOLN IVPB SCH (21:00)
[2021-08-29] MEDS: traZODone 50 MG TABLET PO SCH (22:05)
[2021-08-29] MEDS: Vancomycin 1,250 MG/262.5 ML IV.SOLN IVPB SCH (22:06)
[2021-08-30 02:40] LABS: Basophils % 0.3 %; Eosinophils # 0.2 K/mcL (0.0-0.6); Hematocrit 32.6 % (37.5-50.1); Hemoglobin 9.4 g/dL (12.9-16.9); Immature Granulocytes % 0.7 % (0-4); Lymphocytes # 1.1 K/mcL (0.6-4.6); Lymphocytes % 9.1 %; Mean Corpuscular HGB Conc 28.8 g/dL (31.6-35.5); Mean Corpuscular Hemoglobin 20.6 pg (28.0-33.3); Mean Corpuscular Volume 71.5 fL (83.0-100.0); Mean Platelet Volume 9.8 fL (9.4-12.4); Monocytes # 1.3 K/mcL (0.0-1.3); Monocytes % 10.8 %; Neutrophils # 9.1 K/mcL (1.6-8.9); Platelet Count 329 K/mcL (140-400); Red Blood Count 4.56 M/mcL (4.19-5.50); Red Cell Distribution Width 19.2 % (11.5-14.5); Segmented Neutrophils % 77.1 %; White Blood Count 11.8 K/mcL (4.3-11.1)
[2021-08-30 02:50] LABS: INR 1.6; Prothrombin Time 18.2 Seconds (9.4-12.1)
[2021-08-30 02:53] LABS: Activated Partial Thrombo Time 33.7 Seconds (26.0-36.0)
[2021-08-30 02:59] LABS: BUN/Creatinine Ratio 19 (6-26); Blood Urea Nitrogen 20 mg/dL (8-23); Calcium 8.7 mg/dL (8.6-10.3); Carbon Dioxide 26 mEq/L (23-29); Chloride 97 mEq/L (98-107); Glucose 306 mg/dL (70-105); Magnesium 1.9 mg/dL (1.6-2.6); Osmolality,Calculated 284 (280-300); Potassium 4.3 mEq/L (3.5-5.1); Sodium 130 mEq/L (136-145); eGFR For African Americans > 60 (> 60); eGFR For Non-African Americans > 60 (> 60)
[2021-08-30 03:34] LABS: Anisocytosis 2+ (Not Present); Hypochromasia Present (Not Present); Microcytosis Present (Not Present); Platelet Estimate Normal (Normal)
[2021-08-30] MEDS: Cefepime HCl 2,000 MG in 0.9 % Sodium Chloride Mini Bag 100 ML IVPB SCH ×2 (06:13→16:01)
[2021-08-30] MEDS: *HR* Heparin 5,000 UNIT/ML VIAL SQ SCH ×3 (06:14→21:52)
[2021-08-30] MEDS: carvediloL 6.25 MG TABLET PO SCH ×2 (08:59→16:01)
[2021-08-30] MEDS: Gabapentin 300 MG CAPSULE PO SCH ×3 (09:00→21:51)
[2021-08-30] MEDS: Furosemide 40 MG TABLET PO SCH (09:00)
[2021-08-30] MEDS: Aspirin Enteric Coated 81 MG Tablet PO SCH (09:00)
[2021-08-30] MEDS: Insulin LISPRO 300 UNITS/3 ML VIAL SUBQ SCH ×4 (09:00→21:53)
[2021-08-30] MEDS: *HR* OxyCODONE/APAP 5/325 TABLET PO PRN ×3 (09:05→22:08)
[2021-08-30] MEDS ORDERED: 0.9 % Sodium Chloride 2,000 ML ONE (09:17)
[2021-08-30] MEDS ORDERED: *HR* FentaNYL (PF) 100 MCG/2 ML VIAL ONE (09:17)
[2021-08-30] MEDS ORDERED: *HR* Heparin 10,000 UNIT/10 ML VIAL ONE (09:17)
[2021-08-30] MEDS ORDERED: *HR* Midazolam HCl 2 MG/2 ML VIAL ONE (09:17)
[2021-08-30] MEDS ORDERED: Heparin 1,000 UNITS/500 mL 500 ML ONE (09:17)
[2021-08-30] MEDS ORDERED: Acetaminophen 325 MG TABLET PO PRN (10:52)
[2021-08-30] MEDS: Vancomycin 1,250 MG/262.5 ML IV.SOLN IVPB SCH ×2 (13:29→13:30)
[2021-08-30] MEDS: traZODone 50 MG TABLET PO SCH (21:52)
[2021-08-31] MEDS: Cefepime HCl 2,000 MG in 0.9 % Sodium Chloride Mini Bag 100 ML IVPB SCH ×3 (00:20→16:03)
[2021-08-31] MEDS: Vancomycin 1,250 MG/262.5 ML IV.SOLN IVPB SCH ×2 (02:23→12:25)
[2021-08-31] MEDS: *HR* Heparin 5,000 UNIT/ML VIAL SQ SCH ×3 (05:58→22:06)
[2021-08-31 07:36] LABS: Basophils # 0.1 K/mcL (0.0-0.2); Basophils % 0.6 %; Eosinophils # 0.3 K/mcL (0.0-0.6); Hematocrit 33.5 % (37.5-50.1); Hemoglobin 9.7 g/dL (12.9-16.9); Immature Granulocytes % 0.6 % (0-4); Lymphocytes % 9.3 %; Mean Corpuscular Hemoglobin 21.1 pg (28.0-33.3); Mean Corpuscular Volume 72.8 fL (83.0-100.0); Mean Platelet Volume 10.4 fL (9.4-12.4); Monocytes % 9.5 %; Neutrophils # 8.2 K/mcL (1.6-8.9); Platelet Count 380 K/mcL (140-400); Red Cell Distribution Width 19.1 % (11.5-14.5); White Blood Count 10.6 K/mcL (4.3-11.1)
[2021-08-31 07:54] LABS: BUN/Creatinine Ratio 18 (6-26); Blood Urea Nitrogen 18 mg/dL (8-23); Calcium 8.9 mg/dL (8.6-10.3); Carbon Dioxide 26 mEq/L (23-29); Chloride 98 mEq/L (98-107); Glucose 258 mg/dL (70-105); Magnesium 1.9 mg/dL (1.6-2.6); Osmolality,Calculated 283 (280-300); Potassium 4.5 mEq/L (3.5-5.1); Sodium 131 mEq/L (136-145); eGFR For African Americans > 60 (> 60); eGFR For Non-African Americans > 60 (> 60)
[2021-08-31] MEDS: Furosemide 40 MG TABLET PO SCH (09:16)
[2021-08-31] MEDS: *HR* OxyCODONE/APAP 5/325 TABLET PO PRN ×3 (09:17→22:07)
[2021-08-31] MEDS: Aspirin Enteric Coated 81 MG Tablet PO SCH (09:17)
[2021-08-31] MEDS: carvediloL 6.25 MG TABLET PO SCH ×2 (09:17→16:02)
[2021-08-31] MEDS: Gabapentin 300 MG CAPSULE PO SCH ×3 (09:17→22:07)
[2021-08-31] MEDS: Insulin LISPRO 300 UNITS/3 ML VIAL SUBQ SCH ×4 (09:18→22:10)
[2021-08-31] MEDS: Insulin DETEMIR 100 UNIT/ML X5UNITS SUBQ SCH ×2 (12:25→22:10)
[2021-08-31] MEDS: traZODone 50 MG TABLET PO SCH (22:06)
[2021-09-01] MEDS: Cefepime HCl 2,000 MG in 0.9 % Sodium Chloride Mini Bag 100 ML IVPB SCH ×4 (01:10→23:27)
[2021-09-01 03:08] LABS: Basophils # 0.1 K/mcL (0.0-0.2); Basophils % 0.5 %; Eosinophils # 0.4 K/mcL (0.0-0.6); Eosinophils % 3.3 %; Hematocrit 31.3 % (37.5-50.1); Hemoglobin 8.9 g/dL (12.9-16.9); Immature Granulocytes % 0.6 % (0-4); Lymphocytes # 1.1 K/mcL (0.6-4.6); Lymphocytes % 10.2 %; Mean Corpuscular HGB Conc 28.4 g/dL (31.6-35.5); Mean Corpuscular Hemoglobin 20.5 pg (28.0-33.3); Mean Corpuscular Volume 72.1 fL (83.0-100.0); Mean Platelet Volume 9.9 fL (9.4-12.4); Monocytes # 1.1 K/mcL (0.0-1.3); Monocytes % 10.4 %; Neutrophils # 8.2 K/mcL (1.6-8.9); Nucleated Red Blood Cells 0.2 /100 WBC (0); Platelet Count 332 K/mcL (140-400); Red Blood Count 4.34 M/mcL (4.19-5.50); Red Cell Distribution Width 18.9 % (11.5-14.5); White Blood Count 10.9 K/mcL (4.3-11.1)
[2021-09-01 03:27] LABS: BUN/Creatinine Ratio 18 (6-26); Blood Urea Nitrogen 19 mg/dL (8-23); Calcium 8.6 mg/dL (8.6-10.3); Carbon Dioxide 29 mEq/L (23-29); Chloride 97 mEq/L (98-107); Glucose 214 mg/dL (70-105); Magnesium 1.9 mg/dL (1.6-2.6); Osmolality,Calculated 281 (280-300); Phosphorous 1.9 mg/dL (2.7-4.5); Potassium 4.1 mEq/L (3.5-5.1); Sodium 131 mEq/L (136-145); Vancomycin,Trough 18 mcg/mL (5-10); eGFR For African Americans > 60 (> 60); eGFR For Non-African Americans > 60 (> 60)
[2021-09-01] MEDS: Vancomycin 1,250 MG/262.5 ML IV.SOLN IVPB SCH ×2 (03:56→17:25)
[2021-09-01] MEDS: *HR* Heparin 5,000 UNIT/ML VIAL SQ SCH ×3 (05:42→21:24)
[2021-09-01] MEDS: Aspirin Enteric Coated 81 MG Tablet PO SCH (08:50)
[2021-09-01] MEDS: Furosemide 40 MG TABLET PO SCH (08:50)
[2021-09-01] MEDS: Gabapentin 300 MG CAPSULE PO SCH ×3 (08:50→21:23)
[2021-09-01] MEDS: carvediloL 6.25 MG TABLET PO SCH ×2 (08:51→16:46)
[2021-09-01] MEDS: Insulin LISPRO 300 UNITS/3 ML VIAL SUBQ SCH ×4 (08:52→21:25)
[2021-09-01] MEDS: Insulin DETEMIR 100 UNIT/ML X5UNITS SUBQ SCH ×2 (08:52→21:24)
[2021-09-01] MEDS: *HR* OxyCODONE/APAP 5/325 TABLET PO PRN ×2 (13:37→21:23)
[2021-09-01] MEDS: traZODone 50 MG TABLET PO SCH (21:23)
[2021-09-02] MEDS: Vancomycin 1,250 MG/262.5 ML IV.SOLN IVPB SCH ×2 (05:39→16:36)
[2021-09-02] MEDS: *HR* OxyCODONE/APAP 5/325 TABLET PO PRN ×3 (05:40→17:29)
[2021-09-02] MEDS: *HR* Heparin 5,000 UNIT/ML VIAL SQ SCH ×3 (05:40→20:52)
[2021-09-02 07:04] LABS: Basophils # 0.1 K/mcL (0.0-0.2); Basophils % 0.5 %; Eosinophils # 0.3 K/mcL (0.0-0.6); Eosinophils % 3.1 %; Hematocrit 30.2 % (37.5-50.1); Immature Granulocytes % 0.6 % (0-4); Lymphocytes # 1.1 K/mcL (0.6-4.6); Lymphocytes % 11.7 %; Mean Corpuscular HGB Conc 29.8 g/dL (31.6-35.5); Mean Corpuscular Hemoglobin 21.1 pg (28.0-33.3); Mean Corpuscular Volume 70.9 fL (83.0-100.0); Monocytes % 10.2 %; Neutrophils # 6.9 K/mcL (1.6-8.9); Platelet Count 332 K/mcL (140-400); Red Blood Count 4.26 M/mcL (4.19-5.50); Red Cell Distribution Width 19.2 % (11.5-14.5); Segmented Neutrophils % 73.9 %; White Blood Count 9.3 K/mcL (4.3-11.1)
[2021-09-02 07:25] LABS: BUN/Creatinine Ratio 22 (6-26); Blood Urea Nitrogen 20 mg/dL (8-23); Calcium 8.7 mg/dL (8.6-10.3); Carbon Dioxide 28 mEq/L (23-29); Chloride 96 mEq/L (98-107); Glucose 304 mg/dL (70-105); Magnesium 1.8 mg/dL (1.6-2.6); Osmolality,Calculated 282 (280-300); Phosphorous 2.1 mg/dL (2.7-4.5); Potassium 4.2 mEq/L (3.5-5.1); Sodium 129 mEq/L (136-145); eGFR For African Americans > 60 (> 60); eGFR For Non-African Americans > 60 (> 60)
[2021-09-02] MEDS: carvediloL 6.25 MG TABLET PO SCH ×2 (08:37→16:41)
[2021-09-02] MEDS: Cefepime HCl 2,000 MG in 0.9 % Sodium Chloride Mini Bag 100 ML IVPB SCH (08:37)
[2021-09-02] MEDS: Gabapentin 300 MG CAPSULE PO SCH ×3 (08:37→20:52)
[2021-09-02] MEDS: Furosemide 40 MG TABLET PO SCH (08:37)
[2021-09-02] MEDS: Aspirin Enteric Coated 81 MG Tablet PO SCH (08:37)
[2021-09-02] MEDS: Insulin LISPRO 300 UNITS/3 ML VIAL SUBQ SCH ×4 (08:38→20:52)
[2021-09-02] MEDS: Insulin DETEMIR 100 UNIT/ML X5UNITS SUBQ SCH ×2 (08:38→20:56)
[2021-09-02] MEDS ORDERED: Insulin Human Regular 15 UNIT in 0.9 % Sodium Chloride 10 ML IV ONE (12:23)
[2021-09-02] MEDS: cefTRIAXone 2,000 MG in 0.9 % Sodium Chloride Mini Bag 100 ML IVPB SCH (13:00)
[2021-09-02] MEDS: metroNIDAZOLE 500 MG TABLET PO SCH ×2 (15:09→20:52)
[2021-09-02] MEDS: traZODone 50 MG TABLET PO SCH (20:52)
[2021-09-03 03:13] LABS: Basophils % 0.6 %; Red Cell Distribution Width 19.3 % (11.5-14.5)
[2021-09-03 03:14] LABS: Basophils # 0.1 K/mcL (0.0-0.2); Eosinophils # 0.2 K/mcL (0.0-0.6); Eosinophils % 2.9 %; Hematocrit 31.2 % (37.5-50.1); Hemoglobin 9.2 g/dL (12.9-16.9); Immature Granulocytes % 0.7 % (0-4); Lymphocytes % 12.2 %; Mean Corpuscular HGB Conc 29.5 g/dL (31.6-35.5); Mean Corpuscular Hemoglobin 21.1 pg (28.0-33.3); Mean Corpuscular Volume 71.7 fL (83.0-100.0); Mean Platelet Volume 10.2 fL (9.4-12.4); Monocytes # 0.9 K/mcL (0.0-1.3); Monocytes % 10.9 %; Platelet Count 345 K/mcL (140-400); Red Blood Count 4.35 M/mcL (4.19-5.50); Segmented Neutrophils % 72.7 %; White Blood Count 8.2 K/mcL (4.3-11.1)
[2021-09-03 03:29] LABS: BUN/Creatinine Ratio 20 (6-26); Blood Urea Nitrogen 20 mg/dL (8-23); Calcium 8.9 mg/dL (8.6-10.3); Carbon Dioxide 32 mEq/L (23-29); Chloride 96 mEq/L (98-107); Glucose 268 mg/dL (70-105); Magnesium 1.9 mg/dL (1.6-2.6); Osmolality,Calculated 284 (280-300); Sodium 131 mEq/L (136-145); eGFR For African Americans > 60 (> 60); eGFR For Non-African Americans > 60 (> 60)
[2021-09-03] MEDS: *HR* Heparin 5,000 UNIT/ML VIAL SQ SCH ×3 (06:45→21:00)
[2021-09-03] MEDS: *HR* OxyCODONE/APAP 5/325 TABLET PO PRN ×4 (06:45→20:59)
[2021-09-03] MEDS: metroNIDAZOLE 500 MG TABLET PO SCH ×3 (09:06→20:59)
[2021-09-03] MEDS: Aspirin Enteric Coated 81 MG Tablet PO SCH (09:06)
[2021-09-03] MEDS: Furosemide 40 MG TABLET PO SCH (09:06)
[2021-09-03] MEDS: Gabapentin 300 MG CAPSULE PO SCH ×3 (09:06→20:59)
[2021-09-03] MEDS: carvediloL 6.25 MG TABLET PO SCH ×2 (09:06→16:43)
[2021-09-03] MEDS: Insulin LISPRO 300 UNITS/3 ML VIAL SUBQ SCH ×4 (09:09→21:08)
[2021-09-03] MEDS: Insulin DETEMIR 100 UNIT/ML X5UNITS SUBQ SCH ×2 (09:10→21:07)
[2021-09-03] MEDS: cefTRIAXone 2,000 MG in 0.9 % Sodium Chloride Mini Bag 100 ML IVPB SCH (11:58)
[2021-09-03] MEDS: traZODone 50 MG TABLET PO SCH (20:59)
[2021-09-04] MEDS: *HR* OxyCODONE/APAP 5/325 TABLET PO PRN ×4 (05:47→19:58)
[2021-09-04] MEDS: *HR* Heparin 5,000 UNIT/ML VIAL SQ SCH ×2 (05:47→15:16)
[2021-09-04] MEDS: Furosemide 40 MG TABLET PO SCH (07:51)
[2021-09-04] MEDS: Aspirin Enteric Coated 81 MG Tablet PO SCH (07:51)
[2021-09-04] MEDS: metroNIDAZOLE 500 MG TABLET PO SCH ×2 (07:51→15:16)
[2021-09-04] MEDS: Insulin DETEMIR 100 UNIT/ML X5UNITS SUBQ SCH (07:52)
[2021-09-04] MEDS: Insulin LISPRO 300 UNITS/3 ML VIAL SUBQ SCH ×3 (07:52→17:04)
[2021-09-04] MEDS: carvediloL 6.25 MG TABLET PO SCH ×2 (07:52→17:04)
[2021-09-04] MEDS: Gabapentin 300 MG CAPSULE PO SCH ×2 (07:52→15:16)
[2021-09-04 10:21] LABS: Influenza A PCR Negative (Negative); Influenza B PCR Negative (Negative); Resp. Syncytial Virus PCR Negative (Negative)
[2021-09-04 10:53] LABS: SARS-CoV-2 by PCR (In House) Negative (Negative)
[2021-09-04] MEDS: cefTRIAXone 2,000 MG in 0.9 % Sodium Chloride Mini Bag 100 ML IVPB SCH (12:27)
[2021-09-04 14:55] VITALS: BP 123/74; PULSE 68; TEMP 97.6; O2SAT 98
[2021-09-05] MEDS ORDERED: Piperacillin/Tazobactam 3.375 GM in 0.9 % Sodium Chloride Mini Bag 100 ML IVPB SCH
== END 2021-09-04 20:33 | DRG 617 ==
LOC: 4WAOSI
PROVIDERS: ADMIT Internal Medicine; ATTEND Internal Medicine